=== PATIENT | female | born 1990 | race Caucasian/White ===

== ENCOUNTER 2018-01-03 09:25 | Inpatient (IN) | payer MEDICAID ==
[~2018-01-03] VITALS: Ht 147.3 cm; Wt 67.8 kg
[~2018-01-03 09:25] MED LIST: ALBU18HF2 INH; GABA600T2 PO; GLU850T PO; INSU100V36 SQ; LANTUS SQ; LEVO88TA39 PO; MELO7.5T12 PO; MIRENA VG; MONT10TA21 PO; OMEP20TA5 PO; PROC5TAB56 PO; TRAZ-146 PO
[2018-01-03] MEDS ORDERED: ondansetron/PF 4mg/2ml inj IV ONE (10:00)
[2018-01-03] MEDS ORDERED: normal saline 1000ML IV soln IVB ONE ×2 (10:00→10:35)
[2018-01-03 10:06] LABS: BASOPHILS % (AUTO) 0.1 % (0-1); EOSINOPHILS % (AUTO) 0 % (0-6); HEMATOCRIT 47.9 % (35.0-45.0); HEMOGLOBIN 16.3 g/dl (12.0-16.0); LYMPHOCYTES # (AUTO) 1.1 X10'3 (1.1-4.8); LYMPHOCYTES % (AUTO) 4.2 % (21-51); MEAN CORPUSCULAR HEMOGLOBIN 28.4 PG (27.0-31.0); MEAN CORPUSCULAR HGB CONC 33.9 % (33.0-36.5); MEAN CORPUSCULAR VOLUME 83.7 FL (78-98); MEAN PLATELET VOLUME 9.7 FL (7.4-10.4); MONOCYTES # (AUTO) 0.4 X10'3 (0-0.9); MONOCYTES % (AUTO) 1.5 % (2-12); NEUTROPHILS # (AUTO) 25.6 X10'3 (1.8-7.7); NEUTROPHILS % (AUTO) 94.2 % (42-75); PLATELET COUNT 337 X10'3 (140-440); RED BLOOD COUNT 5.73 X10'6 (4.20-5.60); RED CELL DISTRIBUTION WIDTH 14.5 % (11.5-14.5)
[2018-01-03 10:10] LABS: WHITE BLOOD COUNT 27.2 X10'3 (4.5-11.0)
[2018-01-03 10:22] LABS: ALANINE AMINOTRANSFERASE 27 U/L (12-78); ALBUMIN 4.4 G/DL (3.4-5.0); ALKALINE PHOSPHATASE 145 IU/L (46-116); ANION GAP 34 (8-16); ASPARTATE AMINO TRANSFERASE 12 U/L (10-37); BILIRUBIN,TOTAL 0.7 MG/DL (0.1-1.0); BLOOD UREA NITROGEN 43 MG/DL (7-18); BUN/CREATININE RATIO 24.3 (6.6-38.0); CALCIUM 9.2 MG/DL (8.5-10.1); CHLORIDE 80 MMOL/L (99-107); CREATININE 1.77 MG/DL (0.40-0.90); LIPASE 92 U/L (73-393); MAGNESIUM 1.9 MG/DL (1.5-2.4); PHOSPHORUS 8.3 MG/DL (2.3-4.5); SODIUM 123 MMOL/L (135-145); eGFR 34 ML/MIN
[2018-01-03 10:25] LABS: GLUCOSE 726 MG/DL (70-104); TOTAL CARBON DIOXIDE 8.8 MMOL/L (24-32)
[2018-01-03] MEDS ORDERED: SERT50TA PO (10:31)
[2018-01-03] MEDS ORDERED: DULO-31 PO ×2 (10:31→14:27)
[2018-01-03] MEDS ORDERED: INSU100C10 SQ ×2 (10:31)
[2018-01-03] MEDS ORDERED: LANTUS SQ (10:31)
[2018-01-03] MEDS ORDERED: proCHLORperazine 10 MG/2 ml inj IV ONE (10:35)
[2018-01-03] MEDS: morphine 4 MG/ML inj SYRINge IV PRN ×2 (10:43→13:42)
[2018-01-03 10:51] LABS: ABG BASE EXCESS -23.6 mmol/L (-2.0-3.0); ABG OXYGEN SATURATION 97.9 % (95-98); ABG PH (T) 7.102 (7.350-7.450); ABG PO2 (T) 128.7 mmHg (83-108); ALLEN'S TEST Positive; FMetHb 0.2 % (0.3-1.12); FO2Hb 96.7 % (94-100); PATIENT TEMPERATURE 36.1; TOTAL HEMOGLOBIN 14.7 G/dl (12.0-16.0)
[2018-01-03 10:58] LABS: PLATELET ESTIMATE NORMAL; TOTAL CELLS COUNTED 100
[2018-01-03 10:59] LABS: URINE HCG NEGATIVE (NEG)
[2018-01-03 11:03] LABS: CLARITY,URINE CLOUDY (Clear); COLOR,URINE STRAW (Yellow); GLUCOSE, URINE >=1000 mg/dl (Neg); KETONES,URINE >=80 mg/dl (Neg); LEUKOCYTE ESTERASE ,URINE TRACE (Neg); NITRITES, URINE NEGATIVE (Neg); OCCULT BLOOD,URINE TRACE-INTACT (Neg); PH,URINE 5.5 (4.8-8.0); PROTEIN,URINE TRACE mg/dl (Neg); UROBILINOGEN,URINE 0.2 E.U/dL (0.2-1.0)
[2018-01-03 11:10] LABS: UA COLLECTION TYPE OTHER
[2018-01-03 11:11] LABS: SQUAMOUS EPITHELIAL CELL,UR MANY /LPF (FEW)
[2018-01-03 11:13] LABS: BACTERIA,URINE 3+ /HPF (Neg); MUCUS STRANDS NONE SEEN /LPF (Neg); RBC,URINE 0-2 /HPF (0-2); WBC,URINE 0-4 /HPF (0-4); YEAST MANY /HPF (NEGATIVE)
[2018-01-03] MEDS ORDERED: insulin regular, human 10 units/0.1 ml syringe SQ PRN ×2 (11:20→13:00)
[2018-01-03] MEDS: insulin regular, DKA only 100 UNIT in normal saline 100ml IV soln 99 ML IV SCH ×2 (12:10)
[2018-01-03] MEDS ORDERED: levoFLOXACIN-Levaquin 750MG/D5 150 ML IV STA (12:41)
[2018-01-03] MEDS ORDERED: dextrose 50%-water 50ml dispensing syringe IV PRN ×3 (12:55→13:10)
[2018-01-03] MEDS ORDERED: non-formulary drug (Albuterol Sulfate (Ventolin Hfa) 1 PUFFS) INH PRN (12:55)
[2018-01-03] MEDS ORDERED: insulin regular, human 100 UNIT in normal saline 100ml IV soln 99 ML IV SCH ×2 (12:55)
[2018-01-03] MEDS ORDERED: sodium bicarbonate (8.4%) inj. 100 MEQ in sodium chloride 0.45% 500ml 500 ML IV PRN (12:57)
[2018-01-03] MEDS ORDERED: insulin regular, DKA only 100 UNIT in normal saline 100ml IV soln 99 ML IV SCH ×2 (12:57)
[2018-01-03] MEDS ORDERED: sodium bicarbonate (8.4%) inj. 50 MEQ in sodium chloride 0.45% 500ml 250 ML IV PRN (12:57)
[2018-01-03] MEDS ORDERED: normal saline 1000ml 1,000 ML IV SCH (12:59)
[2018-01-03] MEDS ORDERED: HYDROcodone/acetaminophen 5mg/325mg tablet PO PRN (13:00)
[2018-01-03] MEDS ORDERED: HYDROmorphone 1 mg/ml syringe IV PRN ×2 (13:00)
[2018-01-03] MEDS ORDERED: HYDROcodone/acetaminophen 10/325mg tab PO PRN (13:00)
[2018-01-03] MEDS ORDERED: potassium Cl 20 mEq SR tablet PO PRN ×2 (13:00)
[2018-01-03] MEDS ORDERED: potassium Cl 40MEQ/NS 500ml 500 ML IV PRN ×2 (13:00)
[2018-01-03] MEDS ORDERED: acetaminophen 325mg tablet PO PRN ×2 (13:00)
[2018-01-03] MEDS ORDERED: diphenhydrAMINE 25mg capsule PO PRN (13:00)
[2018-01-03] MEDS ORDERED: albuterol 2.5 MG/3 ML nebule NEB PRN (13:00)
[2018-01-03] MEDS ORDERED: magnesium hydroxide 30ml (MOM) UD suspension PO PRN (13:00)
[2018-01-03] MEDS ORDERED: sodium phosphate inj. 30 MMOL in dextrose 5%-water 250 ML IV PRN (13:00)
[2018-01-03] MEDS ORDERED: acetaminophen 650mg rectal suppository RC PRN (13:00)
[2018-01-03] MEDS ORDERED: sodium phosphate inj. 15 MMOL in dextrose 5%-water 150 ML IV PRN (13:00)
[2018-01-03] MEDS ORDERED: morphine 4 MG/ML inj SYRINge IV PRN (13:00)
[2018-01-03] MEDS ORDERED: bisacodyl 10mg suppository rectal RC PRN (13:00)
[2018-01-03] MEDS ORDERED: metoclopramide 5 mg/ml inj IV PRN (13:00)
[2018-01-03] MEDS ORDERED: diphenhydrAMINE 50 mg/ml inj IV PRN (13:00)
[2018-01-03] MEDS ORDERED: glucagon, human recombinant 1mg kit SUBCUT PRN (13:10)
[2018-01-03] MEDS ORDERED: dextrose ORAL solution 15 GM/59 ML bottle PO PRN ×2 (13:10)
[2018-01-03] MEDS ORDERED: MESSAGE TO PHARMACY PO ONE (13:10)
[2018-01-03] MEDS: normal saline 1000ml 1,000 ML IV SCH ×4 (13:48→17:11)
[2018-01-03 14:11] LABS: HEMOGLOBIN A1C 10.9 % (4.5-6.2)
[2018-01-03 14:23] LABS: ALBUMIN 3.7 G/DL (3.4-5.0); ANION GAP 24 (8-16); BLOOD UREA NITROGEN 30 MG/DL (7-18); BUN/CREATININE RATIO 22.7 (6.6-38.0); CALCIUM 7.6 MG/DL (8.5-10.1); CHLORIDE 98 MMOL/L (99-107); CREATININE 1.32 MG/DL (0.40-0.90); GLUCOSE 395 MG/DL (70-104); POTASSIUM 4.3 MMOL/L (3.5-5.1); SODIUM 131 MMOL/L (135-145); eGFR 48 ML/MIN
[2018-01-03 14:24] LABS: TOTAL CARBON DIOXIDE 9.2 MMOL/L (24-32)
[2018-01-03] MEDS ORDERED: SERT100T PO (14:26)
[2018-01-03] MEDS: insulin Lispro (HumaLOG) vial - multi-dose SQ SCH (14:30)
[2018-01-03 15:00] VITALS: BP 126/70
[2018-01-03 15:00] LABS: URINE AMPHETAMINE SCREEN NEGATIVE (Neg); URINE BARBITUATE SCREEN NEGATIVE (Neg); URINE BENZODIAZEPINES SCREEN NEGATIVE (Neg); URINE CANNABINOID SCREEN NEGATIVE (Neg); URINE COCAINE SCREEN NEGATIVE (Neg); URINE METHADONE SCREEN NEGATIVE (Neg); URINE OPIATE SCREEN POSITIVE (Neg); URINE PHENCYCLIDINE SCREEN NEGATIVE (Neg)
[2018-01-03 17:43] LABS: ALBUMIN 3.5 G/DL (3.4-5.0); ANION GAP 18 (8-16); BLOOD UREA NITROGEN 22 MG/DL (7-18); BUN/CREATININE RATIO 19.3 (6.6-38.0); CHLORIDE 103 MMOL/L (99-107); CREATININE 1.14 MG/DL (0.40-0.90); GLUCOSE 202 MG/DL (70-104); PHOSPHORUS 2.3 MG/DL (2.3-4.5); SODIUM 135 MMOL/L (135-145); eGFR 57 ML/MIN
[2018-01-03 17:45] LABS: TOTAL CARBON DIOXIDE 13.8 MMOL/L (24-32)
[2018-01-03 19:00] VITALS: BP 109/49
[2018-01-03] MEDS: potassium CL 20mEq in D5-1/2NS 1,000 ML IV PRN (19:14)
[2018-01-03] MEDS: docusate sod 100mg capsule PO SCH (19:28)
[2018-01-03] MEDS: duloxetine 30mg CAPSULE.DR PO SCH (19:29)
[2018-01-03] MEDS: heparin, porcine 5000 units/ml vial SQ SCH (20:19)
[2018-01-03] MEDS ORDERED: temazepam 15mg capsule PO PRN (21:00)
[2018-01-03 21:43] LABS: ALBUMIN 3.3 G/DL (3.4-5.0); ANION GAP 17 (8-16); BLOOD UREA NITROGEN 16 MG/DL (7-18); BUN/CREATININE RATIO 15.4 (6.6-38.0); CALCIUM 8.4 MG/DL (8.5-10.1); CHLORIDE 105 MMOL/L (99-107); CREATININE 1.04 MG/DL (0.40-0.90); GLUCOSE 182 MG/DL (70-104); PHOSPHORUS 1.7 MG/DL (2.3-4.5); POTASSIUM 3.8 MMOL/L (3.5-5.1); SODIUM 137 MMOL/L (135-145); TOTAL CARBON DIOXIDE 15.4 MMOL/L (24-32); eGFR 64 ML/MIN
[2018-01-03] MEDS ORDERED: sodium phosphate in D5W IVPB 250 ML IV ONE (22:52)
[2018-01-03 23:00] VITALS: BP 116/59
[2018-01-04 02:07] LABS: BASOPHILS % (AUTO) 0.2 % (0-1); EOSINOPHILS % (AUTO) 0 % (0-6); HEMATOCRIT 38.7 % (35.0-45.0); HEMOGLOBIN 12.9 g/dl (12.0-16.0); LYMPHOCYTES % (AUTO) 6.6 % (21-51); MEAN CORPUSCULAR HEMOGLOBIN 27.7 PG (27.0-31.0); MEAN CORPUSCULAR HGB CONC 33.3 % (33.0-36.5); MEAN CORPUSCULAR VOLUME 83.2 FL (78-98); MEAN PLATELET VOLUME 8.8 FL (7.4-10.4); MONOCYTES # (AUTO) 0.8 X10'3 (0-0.9); MONOCYTES % (AUTO) 5.4 % (2-12); NEUTROPHILS # (AUTO) 13.3 X10'3 (1.8-7.7); NEUTROPHILS % (AUTO) 87.8 % (42-75); PLATELET COUNT 238 X10'3 (140-440); RED BLOOD COUNT 4.66 X10'6 (4.20-5.60); RED CELL DISTRIBUTION WIDTH 13.4 % (11.5-14.5); WHITE BLOOD COUNT 15.1 X10'3 (4.5-11.0)
[2018-01-04 02:09] LABS: ALANINE AMINOTRANSFERASE 19 U/L (12-78); ALBUMIN 3.1 G/DL (3.4-5.0); ALBUMIN/GLOBULIN RATIO 0.9 (1.1-1.5); ALKALINE PHOSPHATASE 90 IU/L (46-116); ANION GAP 14 (8-16); ASPARTATE AMINO TRANSFERASE 12 U/L (10-37); BILIRUBIN,TOTAL 0.4 MG/DL (0.1-1.0); BLOOD UREA NITROGEN 12 MG/DL (7-18); BUN/CREATININE RATIO 12.1 (6.6-38.0); CALCIUM 8.4 MG/DL (8.5-10.1); CHLORIDE 105 MMOL/L (99-107); CREATININE 0.99 MG/DL (0.40-0.90); GLUCOSE 165 MG/DL (70-104); POTASSIUM 3.5 MMOL/L (3.5-5.1); SODIUM 137 MMOL/L (135-145); TOTAL CARBON DIOXIDE 18.5 MMOL/L (24-32); TOTAL PROTEIN 6.7 G/DL (6.4-8.2); eGFR 67 ML/MIN
[2018-01-04] MEDS: potassium CL 20mEq in D5-1/2NS 1,000 ML IV PRN (02:26)
[2018-01-04 03:00] VITALS: BP 101/53
[2018-01-04] MEDS: insulin regular, DKA only 100 UNIT in normal saline 100ml IV soln 99 ML IV SCH ×2 (05:33)
[2018-01-04 06:59] LABS: ALBUMIN 3.1 G/DL (3.4-5.0); ANION GAP 12 (8-16); BLOOD UREA NITROGEN 10 MG/DL (7-18); BUN/CREATININE RATIO 10.3 (6.6-38.0); CALCIUM 8.7 MG/DL (8.5-10.1); CHLORIDE 106 MMOL/L (99-107); CREATININE 0.97 MG/DL (0.40-0.90); GLUCOSE 182 MG/DL (70-104); PHOSPHORUS 1.6 MG/DL (2.3-4.5); POTASSIUM 3.4 MMOL/L (3.5-5.1); SODIUM 137 MMOL/L (135-145); TOTAL CARBON DIOXIDE 18.8 MMOL/L (24-32); eGFR 69 ML/MIN
[2018-01-04 07:00] VITALS: BP 150/76
[2018-01-04] MEDS: pantoprazole 40mg Tablet.DR PO SCH ×2 (07:30→17:40)
[2018-01-04] MEDS: levoFLOXACIN-Levaquin 500mg/D5 100 ML IV SCH (07:36)
[2018-01-04] MEDS: nicotine 21mg patch - 24 hr TD SCH (07:36)
[2018-01-04] MEDS: heparin, porcine 5000 units/ml vial SQ SCH ×2 (07:37→20:37)
[2018-01-04] MEDS: duloxetine 30mg CAPSULE.DR PO SCH ×2 (08:00→20:36)
[2018-01-04] MEDS: levoTHYROXINE 88mcg tablet PO SCH (08:00)
[2018-01-04] MEDS ORDERED: non-formulary drug (Omeprazole 2 TAB) PO SCH (08:00)
[2018-01-04] MEDS: sertraline 50mg tablet PO SCH (08:00)
[2018-01-04] MEDS ORDERED: K and/or MAG REPLACEMENT MC SCH (08:00)
[2018-01-04] MEDS: docusate sod 100mg capsule PO SCH ×2 (08:00→20:36)
[2018-01-04] MEDS: mag hydrox/Alum hydrox/simeth 30ml oral suspension PO PRN ×2 (09:44→16:14)
[2018-01-04 11:00] VITALS: BP 135/80
[2018-01-04] MEDS: insulin Lispro (HumaLOG) vial - multi-dose SQ SCH ×3 (12:40→21:34)
[2018-01-04] MEDS: morphine 4 MG/ML inj SYRINge IV PRN ×2 (14:17→18:56)
[2018-01-04 15:00] VITALS: BP 123/63
[2018-01-04 15:42] LABS: ANION GAP 13 (8-16); BLOOD UREA NITROGEN 6 MG/DL (7-18); BUN/CREATININE RATIO 6.5 (6.6-38.0); CALCIUM 8.8 MG/DL (8.5-10.1); CHLORIDE 103 MMOL/L (99-107); CREATININE 0.93 MG/DL (0.40-0.90); GLUCOSE 269 MG/DL (70-104); POTASSIUM 3.7 MMOL/L (3.5-5.1); SODIUM 135 MMOL/L (135-145); TOTAL CARBON DIOXIDE 19.3 MMOL/L (24-32); eGFR 72 ML/MIN
[2018-01-04 19:00] VITALS: BP 144/87
[2018-01-04] MEDS: Neutra Phos packet PO PRN (20:38)
[2018-01-04] MEDS ORDERED: insulin glargine (Lantus) pen - multi-dose SQ SCH (21:00)
[2018-01-04 23:00] VITALS: BP 144/87
[2018-01-05] MEDS: mag hydrox/Alum hydrox/simeth 30ml oral suspension PO PRN (01:14)
[2018-01-05] MEDS: metoclopramide 5 mg/ml inj IV PRN ×2 (01:29→08:40)
[2018-01-05 02:29] LABS: BASOPHILS % (AUTO) 0.5 % (0-1); EOSINOPHILS % (AUTO) 0.5 % (0-6); HEMATOCRIT 38.5 % (35.0-45.0); HEMOGLOBIN 13.4 g/dl (12.0-16.0); LYMPHOCYTES # (AUTO) 1.6 X10'3 (1.1-4.8); LYMPHOCYTES % (AUTO) 16.1 % (21-51); MEAN CORPUSCULAR HEMOGLOBIN 28.9 PG (27.0-31.0); MEAN CORPUSCULAR HGB CONC 34.9 % (33.0-36.5); MEAN CORPUSCULAR VOLUME 82.8 FL (78-98); MEAN PLATELET VOLUME 8.3 FL (7.4-10.4); MONOCYTES # (AUTO) 0.5 X10'3 (0-0.9); MONOCYTES % (AUTO) 4.7 % (2-12); NEUTROPHILS # (AUTO) 7.7 X10'3 (1.8-7.7); NEUTROPHILS % (AUTO) 78.2 % (42-75); PLATELET COUNT 175 X10'3 (140-440); RED BLOOD COUNT 4.65 X10'6 (4.20-5.60); RED CELL DISTRIBUTION WIDTH 14.3 % (11.5-14.5); WHITE BLOOD COUNT 9.9 X10'3 (4.5-11.0)
[2018-01-05 02:44] LABS: ALANINE AMINOTRANSFERASE 22 U/L (12-78); ALBUMIN 3.1 G/DL (3.4-5.0); ALBUMIN/GLOBULIN RATIO 0.8 (1.1-1.5); ALKALINE PHOSPHATASE 92 IU/L (46-116); ASPARTATE AMINO TRANSFERASE 17 U/L (10-37); BILIRUBIN,TOTAL 0.4 MG/DL (0.1-1.0); CALCIUM 8.9 MG/DL (8.5-10.1); CHLORIDE 101 MMOL/L (99-107); CREATININE 0.79 MG/DL (0.40-0.90); GLUCOSE 266 MG/DL (70-104); TOTAL CARBON DIOXIDE 19.1 MMOL/L (24-32); TOTAL PROTEIN 6.9 G/DL (6.4-8.2); eGFR 87 ML/MIN
[2018-01-05 02:53] LABS: ANION GAP 14 (8-16); SODIUM 134 MMOL/L (135-145)
[2018-01-05 02:54] LABS: POTASSIUM 3.7 MMOL/L (3.5-5.1)
[2018-01-05 02:55] LABS: BLOOD UREA NITROGEN 8 MG/DL (7-18); BUN/CREATININE RATIO 10.1 (6.6-38.0)
[2018-01-05 03:00] VITALS: BP 126/76
[2018-01-05] MEDS: insulin regular, DKA only 100 UNIT in normal saline 100ml IV soln 99 ML IV SCH ×2 (03:45)
[2018-01-05 04:04] LABS: PHOSPHORUS 2.1 MG/DL (2.3-4.5)
[2018-01-05 06:00] VITALS: BP 128/78
[2018-01-05] MEDS: pantoprazole 40mg Tablet.DR PO SCH (07:30)
[2018-01-05] MEDS: insulin Lispro (HumaLOG) vial - multi-dose SQ SCH ×2 (08:37→12:56)
[2018-01-05] MEDS: Neutra Phos packet PO PRN (08:39)
[2018-01-05] MEDS: nicotine 21mg patch - 24 hr TD SCH (08:39)
[2018-01-05] MEDS: levoFLOXACIN-Levaquin 500mg/D5 100 ML IV SCH (08:41)
[2018-01-05] MEDS: heparin, porcine 5000 units/ml vial SQ SCH (08:41)
[2018-01-05] MEDS: duloxetine 30mg CAPSULE.DR PO SCH (08:42)
[2018-01-05] MEDS: sertraline 50mg tablet PO SCH (08:42)
[2018-01-05] MEDS: docusate sod 100mg capsule PO SCH (08:42)
[2018-01-05] MEDS: levoTHYROXINE 88mcg tablet PO SCH (08:42)
[2018-01-05 11:00] VITALS: BP 139/88
[2018-01-05] MEDS ORDERED: LEVO500T89 PO (11:08)
[2018-01-05] MEDS ORDERED: lactobacillus rhamnosus 10,000 MMU CELLS/CAPSULE PO SCH (20:00)
== END 2018-01-05 13:50 | disposition home or self-care (01) | DRG 469 ==
LOC: ER 09:25 → ED HOLD 12:59 → PCU 3S 15:04
PROVIDERS: ADMIT Family Medicine; ATTEND Family Medicine
DX: N17.9 Acute kidney failure, unspecified (principal); E10.10 Type 1 diabetes mellitus with ketoacidosis without coma; K31.84 Gastroparesis; E10.43 Type 1 diabetes mellitus with diabetic autonomic (poly)neuropathy; E87.1 Hypo-osmolality and hyponatremia; I10 Essential (primary) hypertension; N39.0 Urinary tract infection, site not specified; E03.9 Hypothyroidism, unspecified; E86.1 Hypovolemia; F32.9 Major depressive disorder, single episode, unspecified; F41.9 Anxiety disorder, unspecified; J45.909 Unspecified asthma, uncomplicated; Z79.899 Other long term (current) drug therapy; Z88.2 Allergy status to sulfonamides; Z88.1 Allergy status to other antibiotic agents; Z88.8 Allergy status to other drugs, medicaments and biological substances; Z86.14 Personal history of Methicillin resistant Staphylococcus aureus infection; Z56.0 Unemployment, unspecified; Z87.891 Personal history of nicotine dependence
CPT/HCPCS: 36415; 36600; 71045; 74176; 80048; 80053; 80305; 81001; 81025; 82803; 82948; 83036; 83605; 83690; 83735; 84100; 84145; 84443; 84484; 85018; 85025; 87040; 87070; 93005; 94640; 94760; 96361; 96365; 96372; 96375; 99291; A4315; J0780; J1170; J1644; J1815; J1956; J2270; J2765; J3480; J7030

== ENCOUNTER 2018-08-27 02:59 | Emergency (ER) | payer MEDICAID ==
[~2018-08-27] VITALS: Ht 162.6 cm; Wt 63.6 kg
[~2018-08-27 02:59] MED LIST changes: +DULO-31 PO; -GABA600T2 PO; +INSU100C10 SQ; -INSU100V36 SQ; -MELO7.5T12 PO; -MONT10TA21 PO; -PROC5TAB56 PO; +SERT50TA PO; -TRAZ-146 PO
[2018-08-27] MEDS ORDERED: normal saline 1000ML IV soln IVB ONE (03:30)
[2018-08-27 04:10] LABS: BASOPHILS # (AUTO) 0.1 X10'3 (0-0.2); EOSINOPHILS % (AUTO) 0.2 % (0-6); HEMATOCRIT 38.1 % (35.0-45.0); HEMOGLOBIN 13.2 g/dl (12.0-16.0); LYMPHOCYTES # (AUTO) 1.2 X10'3 (1.1-4.8); LYMPHOCYTES % (AUTO) 12.8 % (21-51); MEAN CORPUSCULAR HEMOGLOBIN 27.8 PG (27.0-31.0); MEAN CORPUSCULAR HGB CONC 34.7 g/dL (33.0-36.5); MEAN CORPUSCULAR VOLUME 80.2 FL (78-98); MEAN PLATELET VOLUME 8.9 FL (7.4-10.4); MONOCYTES # (AUTO) 0.5 X10'3 (0-0.9); MONOCYTES % (AUTO) 5.8 % (2-12); NEUTROPHILS # (AUTO) 7.6 X10'3 (1.8-7.7); NEUTROPHILS % (AUTO) 80.2 % (42-75); PLATELET COUNT 184 X10'3 (140-440); RED BLOOD COUNT 4.75 X10'6 (4.20-5.60); RED CELL DISTRIBUTION WIDTH 14.3 % (11.5-14.5); WHITE BLOOD COUNT 9.5 X10'3 (4.5-11.0)
[2018-08-27 04:25] LABS: ALANINE AMINOTRANSFERASE 25 U/L (12-78); ALBUMIN 3.6 G/DL (3.4-5.0); ALKALINE PHOSPHATASE 70 IU/L (46-116); ANION GAP 13 (8-16); ASPARTATE AMINO TRANSFERASE 11 U/L (10-37); BILIRUBIN,TOTAL 0.2 MG/DL (0.1-1.0); BLOOD UREA NITROGEN 15 MG/DL (7-18); BUN/CREATININE RATIO 22.1 (6.6-38.0); CALCIUM 9.6 MG/DL (8.5-10.1); CHLORIDE 101 MMOL/L (99-107); CREATININE 0.68 MG/DL (0.40-0.90); GLUCOSE 402 MG/DL (70-104); SODIUM 137 MMOL/L (135-145); TOTAL CARBON DIOXIDE 23.1 MMOL/L (24-32); TOTAL PROTEIN 7.1 G/DL (6.4-8.2); eGFR > 90 ML/MIN
[2018-08-27] MEDS ORDERED: insulin regular, human 10 units/0.1 ml syringe IV ONE (04:40)
[2018-08-27 04:44] LABS: URINE HCG NEGATIVE (NEG)
[2018-08-27] MEDS ORDERED: diphenhydrAMINE 50 mg/ml inj IV ONE (04:45)
[2018-08-27] MEDS ORDERED: ondansetron/PF 4mg/2ml inj IV ONE (04:45)
[2018-08-27 04:48] LABS: CLARITY,URINE CLEAR (Clear); COLOR,URINE YELLOW (Yellow); GLUCOSE, URINE >=1000 mg/dl (Neg); KETONES,URINE >=80 mg/dl (Neg); LEUKOCYTE ESTERASE ,URINE NEGATIVE (Neg); NITRITES, URINE NEGATIVE (Neg); OCCULT BLOOD,URINE NEGATIVE (Neg); PH,URINE 6.5 (4.8-8.0); PROTEIN,URINE NEGATIVE (Neg); UA COLLECTION TYPE VOIDED; UROBILINOGEN,URINE 0.2 E.U/dL (0.2-1.0)
[2018-08-27 04:53] VITALS: BP 146/65
[2018-08-27 05:01] LABS: BACTERIA,URINE 2+ /HPF (Neg); RBC,URINE NONE SEEN /HPF (0-2); SQUAMOUS EPITHELIAL CELL,UR FEW /LPF (FEW); WBC,URINE NONE SEEN /HPF (0-4)
[2018-08-27] MEDS ORDERED: normal saline 1000ml 1,000 ML IV ONE (05:40)
[2018-08-27] MEDS ORDERED: DIPH-423 PO (15:41)
[2018-08-27] MEDS ORDERED: DIPH25CA83 PO (23:45)
== END 2018-08-27 05:59 | disposition home or self-care (01) ==
LOC: ER 03:00
DX: E11.65 Type 2 diabetes mellitus with hyperglycemia (principal); R51 Headache; J45.909 Unspecified asthma, uncomplicated; Z56.0 Unemployment, unspecified; Z88.2 Allergy status to sulfonamides; Z88.8 Allergy status to other drugs, medicaments and biological substances; Z88.6 Allergy status to analgesic agent; Z88.1 Allergy status to other antibiotic agents; Z91.040 Latex allergy status; Z79.4 Long term (current) use of insulin
CPT/HCPCS: 36415; 71045; 80053; 81001; 81025; 82948; 85025; 96361; 96374; 96375; 99284; J1200; J1815; J7030

== ENCOUNTER 2018-08-27 14:28 | Emergency (ER) | payer MEDICAID ==
[~2018-08-27] VITALS: Ht 144.8 cm; Wt 68.9 kg
[2018-08-27] MEDS ORDERED: diphenhydrAMINE 50 mg/ml inj IM ONE (15:10)
[2018-08-27] MEDS ORDERED: DIPH-423 PO (15:41)
[2018-08-27 15:48] VITALS: BP 135/80
[2018-08-27] MEDS ORDERED: DIPH25CA83 PO (23:45)
== END 2018-08-27 15:50 | disposition home or self-care (01) ==
LOC: ER 14:28
DX: E10.65 Type 1 diabetes mellitus with hyperglycemia (principal); F41.9 Anxiety disorder, unspecified; J45.909 Unspecified asthma, uncomplicated; F17.200 Nicotine dependence, unspecified, uncomplicated; Z56.0 Unemployment, unspecified; Z88.2 Allergy status to sulfonamides; Z88.8 Allergy status to other drugs, medicaments and biological substances; Z88.6 Allergy status to analgesic agent; Z88.1 Allergy status to other antibiotic agents; Z91.040 Latex allergy status
CPT/HCPCS: 82948; 96372; 99283; J1200

== ENCOUNTER 2018-08-27 22:00 | Emergency (ER) | payer MEDICAID ==
[~2018-08-27] VITALS: Ht 167.6 cm; Wt 68.2 kg
[~2018-08-27 22:00] MED LIST changes: +DIPH-423 PO
[2018-08-27 22:09] VITALS: BP 161/89
[2018-08-27] MEDS ORDERED: DIPH25CA83 PO (23:45)
[2018-08-27] MEDS ORDERED: diphenhydrAMINE 50 mg/ml inj IM ONE (23:45)
== END 2018-08-27 23:55 | disposition home or self-care (01) ==
LOC: ER 22:01
DX: G47.00 Insomnia, unspecified (principal); J45.909 Unspecified asthma, uncomplicated; E11.9 Type 2 diabetes mellitus without complications; Z86.14 Personal history of Methicillin resistant Staphylococcus aureus infection; Z98.890 Other specified postprocedural states; Z88.2 Allergy status to sulfonamides; Z88.1 Allergy status to other antibiotic agents; Z88.5 Allergy status to narcotic agent; Z91.040 Latex allergy status; Z88.8 Allergy status to other drugs, medicaments and biological substances; Z79.84 Long term (current) use of oral hypoglycemic drugs; Z79.4 Long term (current) use of insulin; Z79.899 Other long term (current) drug therapy; Z56.0 Unemployment, unspecified
CPT/HCPCS: 96372; 99283; J1200

== ENCOUNTER 2018-09-05 13:41 | Emergency (ER) | payer MEDICAID ==
[~2018-09-05] VITALS: Ht 144.8 cm; Wt 66.8 kg
[~2018-09-05 13:41] MED LIST changes: +DIPH25CA83 PO
[2018-09-05 14:02] VITALS: BP 110/82
--- NOTE | 2018-09-05 14:08 | NUR ---
BG 176
[2018-09-06] MEDS ORDERED: LANTUS SQ (16:02)
[2018-09-06] MEDS ORDERED: INSU100V11 SQ ×2 (16:02→16:03)
== END 2018-09-05 14:27 | disposition home or self-care (01) ==
LOC: ER 13:42
DX: R06.00 Dyspnea, unspecified (principal); T43.595A Adverse effect of other antipsychotics and neuroleptics, initial encounter; J45.909 Unspecified asthma, uncomplicated; E11.9 Type 2 diabetes mellitus without complications; Z86.14 Personal history of Methicillin resistant Staphylococcus aureus infection; F31.9 Bipolar disorder, unspecified; Z98.890 Other specified postprocedural states; Z88.2 Allergy status to sulfonamides; Z88.1 Allergy status to other antibiotic agents; Z88.5 Allergy status to narcotic agent; Z88.8 Allergy status to other drugs, medicaments and biological substances; Z91.040 Latex allergy status; Z79.4 Long term (current) use of insulin; Z79.84 Long term (current) use of oral hypoglycemic drugs; Z79.899 Other long term (current) drug therapy; Y92.89 Other specified places as the place of occurrence of the external cause
CPT/HCPCS: 82948; 99282

== ENCOUNTER 2018-09-06 15:12 | Emergency (ER) | payer MEDICAID ==
[~2018-09-06] VITALS: Ht 144.8 cm; Wt 67.7 kg
--- NOTE | 2018-09-06 15:54 | NUR ---
Pt arrived from main ER. Report from Janeen. Pt reports bad nightmares which she remembers very vividly where she stabs herself in her heart. She stated she is very depressed and has had trouble with side effects of medications in the past. She reports that she in engaged to be and nothing has triggered this episode. She has never attempted suicide in the past but states this time she wants to slit her throat. No previous psychiatric hospitalizations. Pts belongings were secured and she was oriented to unit and plan of care.
[2018-09-06 15:55] LABS: URINE HCG NEGATIVE (NEG)
[2018-09-06 15:56] LABS: CLARITY,URINE CLEAR (Clear); COLOR,URINE YELLOW (Yellow); GLUCOSE, URINE NEGATIVE (Neg); KETONES,URINE 40 mg/dl (Neg); LEUKOCYTE ESTERASE ,URINE NEGATIVE (Neg); NITRITES, URINE NEGATIVE (Neg); OCCULT BLOOD,URINE NEGATIVE (Neg); PH,URINE 6.5 (4.8-8.0); PROTEIN,URINE NEGATIVE (Neg); UROBILINOGEN,URINE 0.2 E.U/dL (0.2-1.0)
[2018-09-06 15:57] LABS: UA COLLECTION TYPE CLN CATCH MIDSTREAM
[2018-09-06] MEDS ORDERED: LANTUS SQ (16:02)
[2018-09-06] MEDS ORDERED: INSU100V11 SQ ×2 (16:02→16:03)
[2018-09-06 16:07] LABS: URINE AMPHETAMINE SCREEN NEGATIVE (Neg); URINE BARBITUATE SCREEN NEGATIVE (Neg); URINE BENZODIAZEPINES SCREEN NEGATIVE (Neg); URINE CANNABINOID SCREEN NEGATIVE (Neg); URINE COCAINE SCREEN NEGATIVE (Neg); URINE METHADONE SCREEN NEGATIVE (Neg); URINE OPIATE SCREEN NEGATIVE (Neg); URINE PHENCYCLIDINE SCREEN NEGATIVE (Neg)
[2018-09-06 16:27] LABS: BASOPHILS # (AUTO) 0.1 X10'3 (0-0.2); BASOPHILS % (AUTO) 0.8 % (0-1); EOSINOPHILS % (AUTO) 0.2 % (0-6); HEMATOCRIT 40.4 % (35.0-45.0); HEMOGLOBIN 13.8 g/dl (12.0-16.0); LYMPHOCYTES # (AUTO) 2.3 X10'3 (1.1-4.8); LYMPHOCYTES % (AUTO) 25.9 % (21-51); MEAN CORPUSCULAR HEMOGLOBIN 27.7 PG (27.0-31.0); MEAN CORPUSCULAR HGB CONC 34.1 g/dL (33.0-36.5); MEAN PLATELET VOLUME 8.9 FL (7.4-10.4); MONOCYTES # (AUTO) 0.4 X10'3 (0-0.9); MONOCYTES % (AUTO) 4.7 % (2-12); NEUTROPHILS # (AUTO) 6.1 X10'3 (1.8-7.7); NEUTROPHILS % (AUTO) 68.4 % (42-75); PLATELET COUNT 245 X10'3 (140-440); RED BLOOD COUNT 4.99 X10'6 (4.20-5.60); RED CELL DISTRIBUTION WIDTH 14.4 % (11.5-14.5); WHITE BLOOD COUNT 8.9 X10'3 (4.5-11.0)
--- NOTE | 2018-09-06 16:34 | NUR ---
Telepsych called. Pt placed in queue.
[2018-09-06 16:40] LABS: ALANINE AMINOTRANSFERASE 20 U/L (12-78); ALBUMIN 3.9 G/DL (3.4-5.0); ALBUMIN/GLOBULIN RATIO 1.1 (1.1-1.5); ALKALINE PHOSPHATASE 72 IU/L (46-116); ANION GAP 11 (8-16); ASPARTATE AMINO TRANSFERASE 12 U/L (10-37); BILIRUBIN,TOTAL 0.4 MG/DL (0.1-1.0); BLOOD UREA NITROGEN 10 MG/DL (7-18); BUN/CREATININE RATIO 18.9 (6.6-38.0); CALCIUM 9.6 MG/DL (8.5-10.1); CHLORIDE 104 MMOL/L (99-107); CREATININE 0.53 MG/DL (0.40-0.90); GLUCOSE 171 MG/DL (70-104); POTASSIUM 3.9 MMOL/L (3.5-5.1); SODIUM 138 MMOL/L (135-145); TOTAL CARBON DIOXIDE 23.2 MMOL/L (24-32); TOTAL PROTEIN 7.4 G/DL (6.4-8.2); eGFR > 90 ML/MIN
[2018-09-06] MEDS ORDERED: albuterol 2.5 MG/3 ML nebule NEB PRN (17:05)
[2018-09-06] MEDS ORDERED: insulin Lispro (HumaLOG) vial - multi-dose SQ SCH (17:20)
[2018-09-06] MEDS ORDERED: dextrose ORAL solution 15 GM/59 ML bottle PO PRN ×2 (17:20)
[2018-09-06] MEDS ORDERED: MESSAGE TO PHARMACY PO ONE (17:20)
[2018-09-06] MEDS ORDERED: dextrose 50%-water 50ml dispensing syringe IV PRN ×2 (17:20)
[2018-09-06] MEDS ORDERED: glucagon, human recombinant 1mg kit SUBCUT PRN (17:20)
[2018-09-06 18:14] LABS: HEMOGLOBIN A1C 8.9 % (4.5-6.2)
--- NOTE | 2018-09-06 18:32 | NUR ---
Aniya menchaca in [facility] - 09/06/18 at 2120 by MIREYA PRE BRIDGETTNER ACCUCHECK = 141, NO NEED TO START CORRECTIONAL INSULIN AT THIS TIME.
--- NOTE | 2018-09-06 18:32 | NUR ---
REPORT GIVEN TO TELE PSYCH MD, PT SPEAKING WITH MD NOW.
--- NOTE | 2018-09-06 19:07 | NUR ---
TELE PSYCH REPORT REVIEWED WITH DOM LIN, MEDS ORDERED RECOMMENDED. NICOTINE PATCH ALSO ORDERED PER PT'S REQUEST.
[2018-09-06] MEDS ORDERED: nicotine 14mg patch - 24hr TD ONE (19:10)
[2018-09-06] MEDS ORDERED: hydrOXYzine 25 MG tablet PO PRN (19:10)
[2018-09-06] MEDS: LORazepam 1 MG tablet PO PRN (19:36)
[2018-09-06] MEDS: metFORMIN 500mg tablet PO SCH (19:39)
--- NOTE | 2018-09-06 19:39 | NUR ---
PT COMPLAINING OF NAUSEA, STATES SHE HAS VOMITED BUT DID NOT TELL STAFF. RATHER QUESTIONED ABOUT SEVERAL TRIPS UP AND DOWN TO BATHROOM BEFORE SHE ADMITTED THAT SHE HAS BEEN VOMITING. MEDICATED FOR AGGITATION WITH ATIVAN 2MG PO.
--- NOTE | 2018-09-06 20:40 | NUR ---
REPORT GIVEN TO LUCIANO AT [facility]
[2018-09-06 20:55] LABS: ETHANOL < 0.010 GM/DL (0.0-0.010)
[2018-09-06] MEDS ORDERED: insulin glargine (Lantus) pen - multi-dose SQ SCH (21:00)
--- NOTE | 2018-09-06 21:20 | NUR ---
PT'S ACCUCHECK = 220, PT ACTUALLY TYPE 1 DIABETIC, NO CORRECTIONAL INSULIN NEEDED, 12UNITS OF LANTUS GIVEN PER PROTOCOL.
--- NOTE | 2018-09-06 21:27 | NUR ---
REPORT GIVEN TO MELISSA AT [facility] [place].
--- NOTE | 2018-09-06 22:42 | NUR ---
PT HAS BEEN ACCEPTED AT [facility], ACCEPTING IS DOM CONRAD, TO TRANSFER AT 0900 IN AM.
[2018-09-07 05:45] VITALS: BP 100/57
[2018-09-07] MEDS: LORazepam 1 MG tablet PO PRN (06:50)
[2018-09-07] MEDS ORDERED: levoTHYROXINE 88mcg tablet PO SCH (07:00)
[2018-09-07] MEDS ORDERED: pantoprazole 40mg Tablet.DR PO SCH (07:30)
[2018-09-07] MEDS: metFORMIN 500mg tablet PO SCH (08:29)
== END 2018-09-07 10:35 ==
LOC: ER 15:12
DX: R45.851 Suicidal ideations (principal); F31.9 Bipolar disorder, unspecified; J45.909 Unspecified asthma, uncomplicated; E11.9 Type 2 diabetes mellitus without complications; Z86.14 Personal history of Methicillin resistant Staphylococcus aureus infection; Z98.890 Other specified postprocedural states; Z56.0 Unemployment, unspecified; Z88.2 Allergy status to sulfonamides; Z88.8 Allergy status to other drugs, medicaments and biological substances; Z88.5 Allergy status to narcotic agent; Z88.1 Allergy status to other antibiotic agents; Z91.040 Latex allergy status; Z79.4 Long term (current) use of insulin; Z79.84 Long term (current) use of oral hypoglycemic drugs; Z79.899 Other long term (current) drug therapy
CPT/HCPCS: 36415; 80053; 80305; 80320; 81003; 81025; 82948; 83036; 84443; 85025; 96372; 99285; J1815

== ENCOUNTER 2021-03-07 11:47 | Inpatient (IN) | payer MEDICAID ==
[~2021-03-07] VITALS: Ht 152.4 cm; Wt 70.0 kg
[~2021-03-07 11:47] MED LIST changes: -DIPH-423 PO; -DIPH25CA83 PO; -DULO-31 PO; -INSU100C10 SQ; +INSU100V11 SQ; -SERT50TA PO
[2021-03-07] MEDS ORDERED: normal saline 1000ML IV soln IVB ONE ×2 (12:00→13:20)
[2021-03-07] MEDS ORDERED: insulin regular, human U-100 3ml vial - multi-dose IV ONE (12:00)
[2021-03-07] MEDS ORDERED: insulin regular, human 10 units/0.1 ml syringe IV ONE (12:15)
[2021-03-07] MEDS: Insulin Reg/NS 100units/100mL 100 ML IV PRN ×2 (12:29→14:14)
[2021-03-07 12:31] LABS: ABG BASE EXCESS -32.1 mmol/L (-2.0-2.0); ABG HCO3 2.1 mmol/L (22.0-26.0); ABG OXYGEN SATURATION 97.7 % (94-97); ABG PO2 (T) 144.8 mmHg (75.0-100.0); ALLEN'S TEST Modified; FCOHb 0.3 % (0.0-3.9); FMetHb 0.2 % (0.0-1.5); FO2Hb 97.2 % (94-97); TOTAL HEMOGLOBIN 11.8 G/dl (12.0-16.0)
[2021-03-07] MEDS ORDERED: sodium bicarbonate (8.4%) 1 mEq/ml syringe IV ONE ×2 (12:45)
[2021-03-07 12:55] LABS: BASOPHILS # (AUTO) 0.3 X10'3 (0-0.2); BASOPHILS % (AUTO) 0.7 % (0-1); EOSINOPHILS # (AUTO) 0.2 X10'3 (0-0.9); EOSINOPHILS % (AUTO) 0.5 % (0-6); HEMATOCRIT 32.4 % (35.0-45.0); HEMOGLOBIN 10.9 g/dl (12.0-16.0); LYMPHOCYTES # (AUTO) 5.8 X10'3 (1.1-4.8); MEAN CORPUSCULAR HEMOGLOBIN 29.2 PG (27.0-31.0); MEAN CORPUSCULAR HGB CONC 33.5 g/dL (33.0-36.5); MEAN CORPUSCULAR VOLUME 87.1 FL (78-98); MEAN PLATELET VOLUME 9.1 FL (7.4-10.4); MONOCYTES # (AUTO) 4.4 X10'3 (0-0.9); MONOCYTES % (AUTO) 9.3 % (2-12); NEUTROPHILS # (AUTO) 37.3 X10'3 (1.8-7.7); NEUTROPHILS % (AUTO) 77.5 % (42-75); PLATELET COUNT 440 X10'3 (140-440); RED BLOOD COUNT 3.72 X10'6 (4.20-5.60); RED CELL DISTRIBUTION WIDTH 13.1 % (11.5-14.5)
[2021-03-07 13:00] LABS: ALANINE AMINOTRANSFERASE 32 U/L (12-78); ALBUMIN/GLOBULIN RATIO 0.9 (1.1-1.5); ALKALINE PHOSPHATASE 149 IU/L (46-116); ASPARTATE AMINO TRANSFERASE 21 U/L (10-37); BILIRUBIN,TOTAL 0.6 MG/DL (0.1-1.0); BLOOD UREA NITROGEN 69 MG/DL (7-18); BUN/CREATININE RATIO 30.4 (6.6-38.0); CALCIUM 8.4 MG/DL (8.5-10.1); CHLORIDE 81 MMOL/L (99-107); CREATININE 2.27 MG/DL (0.40-0.90); MAGNESIUM 3.1 MG/DL (1.5-2.4); TOTAL PROTEIN 6.2 G/DL (6.4-8.2); eGFR 25 ML/MIN
[2021-03-07 13:09] LABS: CLARITY,URINE SLIGHTLY CLOUDY (Clear); COLOR,URINE STRAW (Yellow); GLUCOSE, URINE >=1000 mg/dl (Neg); KETONES,URINE 40 mg/dl (Neg); LEUKOCYTE ESTERASE ,URINE NEGATIVE (Neg); NITRITES, URINE NEGATIVE (Neg); OCCULT BLOOD,URINE LARGE (Neg); PROTEIN,URINE 30 mg/dl (Neg); UA COLLECTION TYPE OTHER; UROBILINOGEN,URINE 0.2 E.U/dL (0.2-1.0)
[2021-03-07 13:12] LABS: URINE HCG NEGATIVE (NEG)
[2021-03-07 13:15] LABS: BACTERIA,URINE 4+ /HPF (Neg); HYALINE CASTS 0-3 /LPF (NEGATIVE); MUCUS STRANDS NONE SEEN /LPF (Neg); SQUAMOUS EPITHELIAL CELL,UR FEW /LPF (FEW); WBC,URINE 0-4 /HPF (0-4)
[2021-03-07] MEDS: sodium bicarbonate (8.4%) inj. 150 MEQ in dextrose 5%-water 1,000 ML IV SCH (13:15)
[2021-03-07 13:26] LABS: TOTAL CELLS COUNTED 100
[2021-03-07 13:28] LABS: PLATELET ESTIMATE NORMAL; SMUDGE CELLS FEW
[2021-03-07 13:29] LABS: POIKILOCYTOSIS FEW; POLYCHROMASIA FEW; TOXIC VACUOLATION FEW
[2021-03-07 13:30] LABS: ANION GAP 29 (8-16)
[2021-03-07 13:35] LABS: GLUCOSE 1246 MG/DL (70-104); POTASSIUM 7.3 MMOL/L (3.5-5.1); SODIUM 115 MMOL/L (135-145)
[2021-03-07 13:36] LABS: TOTAL CARBON DIOXIDE < 5 MMOL/L (24-32)
[2021-03-07] MEDS ORDERED: CALCIUM GLUC 1gm/50ml NACL,iso 50 ML IV ONE (13:45)
[2021-03-07] MEDS ORDERED: insulin regular, human 10 units/0.1 ml syringe IV PRN ×2 (14:00→18:00)
[2021-03-07] MEDS ORDERED: insulin regular, human U-100 3ml vial - multi-dose IV PRN ×2 (14:00→19:33)
[2021-03-07] MEDS ORDERED: albuterol 2.5 MG/3 ML nebule CONTNEB PRN (14:20)
[2021-03-07] MEDS ORDERED: piperacillin/tazo 3.375gm/50ml 50 ML IV ONE (14:20)
[2021-03-07] MEDS ORDERED: vancomycin/NS 1 GM ADD-VANTAGE 250 ML IV ONE (15:50)
[2021-03-07 16:44] LABS: ANION GAP 30 (8-16); BLOOD UREA NITROGEN 75 MG/DL (7-18); BUN/CREATININE RATIO 35.2 (6.6-38.0); CALCIUM 8.6 MG/DL (8.5-10.1); CHLORIDE 88 MMOL/L (99-107); CREATININE 2.13 MG/DL (0.40-0.90); POTASSIUM 4.6 MMOL/L (3.5-5.1); SODIUM 124 MMOL/L (135-145); eGFR 27 ML/MIN
[2021-03-07 17:02] LABS: GLUCOSE 1041 MG/DL (70-104)
[2021-03-07 17:03] LABS: TOTAL CARBON DIOXIDE 6.2 MMOL/L (24-32)
[2021-03-07 17:09] LABS: ABG BASE EXCESS -25.8 mmol/L (-2.0-2.0); ABG HCO3 4.4 mmol/L (22.0-26.0); ABG PCO2 (T) 19.5 mmHg (32.0-45.0); FCOHb 0.3 % (0.0-3.9); FO2Hb 96.7 % (94-97); TOTAL HEMOGLOBIN 11.4 G/dl (12.0-16.0)
[2021-03-07] MEDS ORDERED: potassium Cl 40MEQ/1/2NS 520ml 520 ML IV PRN (18:00)
[2021-03-07] MEDS ORDERED: sodium bicarbonate (8.4%) inj. 100 MEQ in dextrose 5% water 500ml 500 ML IV PRN (18:00)
[2021-03-07] MEDS ORDERED: sodium phosphate inj. 15 MMOL in dextrose 5%-water 250 ML IV PRN (18:00)
[2021-03-07] MEDS ORDERED: LIDOcaine 2% 10ml TOPICAL JELLY (Urojet) TP ONE (18:00)
[2021-03-07] MEDS ORDERED: magnesium hydroxide 30ml (MOM) UD suspension PO PRN (18:00)
[2021-03-07] MEDS: Insulin Reg/NS 100units/100mL 100 ML IV SCH (18:00)
[2021-03-07] MEDS: normal saline 1000ml 1,000 ML IV SCH ×4 (18:00→22:00)
[2021-03-07] MEDS ORDERED: Neutra Phos packet PO PRN (18:00)
[2021-03-07] MEDS ORDERED: sodium phosphate inj. 30 MMOL in dextrose 5%-water 250 ML IV PRN (18:00)
[2021-03-07] MEDS ORDERED: potassium Cl 20 mEq SR tablet PO PRN ×2 (18:00)
[2021-03-07] MEDS ORDERED: sodium bicarbonate (8.4%) inj. 50 MEQ in dextrose 5% water 500ml 250 ML IV PRN (18:00)
[2021-03-07 18:24] LABS: ALBUMIN 2.9 G/DL (3.4-5.0); ANION GAP 31 (8-16); BLOOD UREA NITROGEN 71 MG/DL (7-18); BUN/CREATININE RATIO 31.4 (6.6-38.0); CALCIUM 8.6 MG/DL (8.5-10.1); CHLORIDE 87 MMOL/L (99-107); CREATININE 2.26 MG/DL (0.40-0.90); PHOSPHORUS 4.5 MG/DL (2.3-4.5); POTASSIUM 4.2 MMOL/L (3.5-5.1); SODIUM 124 MMOL/L (135-145); eGFR 25 ML/MIN
[2021-03-07] MEDS ORDERED: levoFLOXACIN-Levaquin 500mg/D5 100 ML IV ONE (18:35)
[2021-03-07 18:45] LABS: GLUCOSE 1070 MG/DL (70-104); TOTAL CARBON DIOXIDE 6.4 MMOL/L (24-32)
[2021-03-07 19:00] VITALS: BP 76/34
[2021-03-07] MEDS: K and/or MAG REPLACEMENT MC SCH (20:00)
[2021-03-07] MEDS ORDERED: CLON0.1T2 PO (20:05)
[2021-03-07] MEDS ORDERED: NAPR-996 PO (20:05)
[2021-03-07] MEDS ORDERED: LEVO88TA7 PO (20:05)
[2021-03-07] MEDS ORDERED: OXCA600T9 PO (20:05)
[2021-03-07] MEDS ORDERED: TOPI50TA24 PO (20:05)
[2021-03-07] MEDS ORDERED: DULO60CA65 PO (20:05)
[2021-03-07] MEDS ORDERED: OXCA300T16 PO (20:05)
[2021-03-07] MEDS ORDERED: INSU100V43 (20:05)
[2021-03-07] MEDS ORDERED: CHOL100046 PO (20:05)
[2021-03-07] MEDS ORDERED: ATOR40TA72 PO (20:05)
[2021-03-07] MEDS ORDERED: RISP0.5T65 PO (20:05)
[2021-03-07 20:42] LABS: ALBUMIN 2.6 G/DL (3.4-5.0); ANION GAP 28 (8-16); BLOOD UREA NITROGEN 75 MG/DL (7-18); BUN/CREATININE RATIO 33.6 (6.6-38.0); CHLORIDE 92 MMOL/L (99-107); CREATININE 2.23 MG/DL (0.40-0.90); SODIUM 127 MMOL/L (135-145); eGFR 26 ML/MIN
[2021-03-07 21:00] VITALS: BP 70/28
[2021-03-07 21:00] LABS: POTASSIUM 4.2 MMOL/L (3.5-5.1)
[2021-03-07 21:04] LABS: GLUCOSE 985 MG/DL (70-104)
[2021-03-07 21:05] LABS: TOTAL CARBON DIOXIDE 7.4 MMOL/L (24-32)
[2021-03-07] MEDS ORDERED: PHENYLephrine 10mg/ml inj. 100 MG in normal saline 250ml IV soln 240 ML IV SCH (21:25)
[2021-03-07 22:02] LABS: ALBUMIN 2.4 G/DL (3.4-5.0); ANION GAP 23 (8-16); BLOOD UREA NITROGEN 69 MG/DL (7-18); BUN/CREATININE RATIO 33.3 (6.6-38.0); CALCIUM 7.2 MG/DL (8.5-10.1); CHLORIDE 98 MMOL/L (99-107); CREATININE 2.07 MG/DL (0.40-0.90); POTASSIUM 3.5 MMOL/L (3.5-5.1); SODIUM 131 MMOL/L (135-145); eGFR 28 ML/MIN
[2021-03-07 22:20] LABS: GLUCOSE 839 MG/DL (70-104)
[2021-03-07 22:21] LABS: TOTAL CARBON DIOXIDE 9.7 MMOL/L (24-32)
[2021-03-07] MEDS: PHENYLephrine 10mg/ml inj. 50 MG in normal saline 250ml IV soln 245 ML IV SCH (22:31)
[2021-03-07] MEDS: potassium Cl 20mEq in NS 1,000 ML IV SCH (22:40)
[2021-03-07 23:00] VITALS: BP 101/45
[2021-03-08] VITALS (20 sets, daily range): BP systolic 89–134; BP diastolic 42–75
[2021-03-08] MEDS: sodium bicarbonate (8.4%) inj. 150 MEQ in dextrose 5%-water 1,000 ML IV SCH ×2 (00:44→11:45)
[2021-03-08 00:55] LABS: ALBUMIN 2.7 G/DL (3.4-5.0); ANION GAP 21 (8-16); BLOOD UREA NITROGEN 67 MG/DL (7-18); BUN/CREATININE RATIO 32.5 (6.6-38.0); CALCIUM 7.5 MG/DL (8.5-10.1); CHLORIDE 101 MMOL/L (99-107); CREATININE 2.06 MG/DL (0.40-0.90); POTASSIUM 3.7 MMOL/L (3.5-5.1); SODIUM 134 MMOL/L (135-145); eGFR 28 ML/MIN
[2021-03-08 00:58] LABS: GLUCOSE 679 MG/DL (70-104); TOTAL CARBON DIOXIDE 12.4 MMOL/L (24-32)
[2021-03-08] MEDS: normal saline 1000ml 1,000 ML IV SCH ×2 (02:00→06:00)
[2021-03-08] MEDS: Insulin Reg/NS 100units/100mL 100 ML IV SCH ×4 (02:35→22:33)
[2021-03-08] MEDS: potassium Cl 20mEq in NS 1,000 ML IV SCH ×6 (03:37→22:35)
[2021-03-08] MEDS: metoclopramide 5 mg/ml inj IV PRN ×2 (05:30→15:44)
[2021-03-08] MEDS: potassium CL 20mEq in D5-1/2NS 1,000 ML IV PRN ×2 (06:47→09:06)
[2021-03-08 07:04] LABS: BASOPHILS % (AUTO) 0.1 % (0-1); EOSINOPHILS % (AUTO) 0 % (0-6); HEMATOCRIT 28.4 % (35.0-45.0); HEMOGLOBIN 9.9 g/dl (12.0-16.0); LYMPHOCYTES # (AUTO) 0.9 X10'3 (1.1-4.8); LYMPHOCYTES % (AUTO) 4.3 % (21-51); MEAN CORPUSCULAR HEMOGLOBIN 28.8 PG (27.0-31.0); MEAN CORPUSCULAR VOLUME 82.2 FL (78-98); MEAN PLATELET VOLUME 8.1 FL (7.4-10.4); MONOCYTES # (AUTO) 1.5 X10'3 (0-0.9); MONOCYTES % (AUTO) 7.3 % (2-12); NEUTROPHILS # (AUTO) 18.5 X10'3 (1.8-7.7); NEUTROPHILS % (AUTO) 88.3 % (42-75); PLATELET COUNT 217 X10'3 (140-440); RED BLOOD COUNT 3.45 X10'6 (4.20-5.60); RED CELL DISTRIBUTION WIDTH 13.7 % (11.5-14.5); WHITE BLOOD COUNT 20.9 X10'3 (4.5-11.0)
[2021-03-08] MEDS: enoxaparin 40mg/0.4ml syringe SUBCUT SCH (07:38)
[2021-03-08] MEDS: pantoprazole 40 MG vial IV SCH (07:38)
[2021-03-08 07:44] LABS: ALANINE AMINOTRANSFERASE 43 U/L (12-78); ALBUMIN 2.8 G/DL (3.4-5.0); ALBUMIN/GLOBULIN RATIO 1.1 (1.1-1.5); ALKALINE PHOSPHATASE 90 IU/L (46-116); ANION GAP 16 (8-16); ASPARTATE AMINO TRANSFERASE 64 U/L (10-37); BILIRUBIN,TOTAL 0.3 MG/DL (0.1-1.0); BLOOD UREA NITROGEN 48 MG/DL (7-18); BUN/CREATININE RATIO 34.3 (6.6-38.0); CALCIUM 8.1 MG/DL (8.5-10.1); CHLORIDE 112 MMOL/L (99-107); GLUCOSE 301 MG/DL (70-104); MAGNESIUM 1.7 MG/DL (1.5-2.4); POTASSIUM 3.2 MMOL/L (3.5-5.1); SODIUM 146 MMOL/L (135-145); TOTAL CARBON DIOXIDE 18.2 MMOL/L (24-32); TOTAL PROTEIN 5.4 G/DL (6.4-8.2); eGFR 44 ML/MIN
[2021-03-08 07:47] LABS: PHOSPHORUS 0.8 MG/DL (2.3-4.5)
[2021-03-08] MEDS: K and/or MAG REPLACEMENT MC SCH ×2 (08:00→20:00)
[2021-03-08] MEDS ORDERED: levoFLOXACIN-Levaquin 500mg/D5 100 ML IV SCH (08:00)
--- NOTE | 2021-03-08 09:31 | NUR ---
Initial: Pt presented to ED with AMS and admit for DKA and sepsis. Per H&P pt has an insulin pump however per EMS they state when they found patient the pump was not on. No A1c at this time though noted BG 1246 mg/dL on admit. TC to RN with recommendation for an A1c lab this admit. Pt documented as A/O x 2 and lethargic, currently NPO. Pt would benefit from DM education once more stable. Will continue to follow closely. Recommendations: 1) Advance to CHO controlled diet as medically indicated 2) Monitor need for ONS/additional protein with diet advancement 3) Bowel care per rx 4) Scaled weight this admit; weekly scaled weights thereafter 5) DM education once stable, admit with DKA with BG 1246 mg/dL on admit, A1c pending Addendum: 03/08/21 at [address] Amended: Links added.
[2021-03-08 10:59] LABS: ALANINE AMINOTRANSFERASE 47 U/L (12-78); ALBUMIN 2.6 G/DL (3.4-5.0); ALBUMIN/GLOBULIN RATIO 0.9 (1.1-1.5); ALKALINE PHOSPHATASE 88 IU/L (46-116); ANION GAP 13 (8-16); BILIRUBIN,TOTAL 0.3 MG/DL (0.1-1.0); BLOOD UREA NITROGEN 38 MG/DL (7-18); BUN/CREATININE RATIO 32.5 (6.6-38.0); CALCIUM 7.9 MG/DL (8.5-10.1); CHLORIDE 114 MMOL/L (99-107); CREATININE 1.17 MG/DL (0.40-0.90); GLUCOSE 160 MG/DL (70-104); SODIUM 147 MMOL/L (135-145); TOTAL CARBON DIOXIDE 20.3 MMOL/L (24-32); TOTAL PROTEIN 5.4 G/DL (6.4-8.2); eGFR 54 ML/MIN
[2021-03-08 11:14] LABS: MAGNESIUM 1.7 MG/DL (1.5-2.4); POTASSIUM 3.5 MMOL/L (3.5-5.1)
[2021-03-08 11:17] LABS: ASPARTATE AMINO TRANSFERASE 65 U/L (10-37)
[2021-03-08 11:25] LABS: PHOSPHORUS 0.9 MG/DL (2.3-4.5)
[2021-03-08 12:22] LABS: HEMOGLOBIN A1C 10.1 % (4.5-6.2)
[2021-03-08] MEDS ORDERED: POTASSIUM CL IV ONE ×4 (14:00)
[2021-03-08] MEDS ORDERED: SODIUM BICARBONATE IV ONE ×4 (14:00)
[2021-03-08] MEDS ORDERED: [UNRECOGNIZED DRUG - OTHER] IV ONE ×4 (14:00)
[2021-03-08 14:55] LABS: ABG BASE EXCESS -2.6 mmol/L (-2.0-2.0); ABG OXYGEN SATURATION 96.7 % (94-97); ABG PCO2 (T) 23.8 mmHg (32.0-45.0); ABG PO2 (T) 86.7 mmHg (75.0-100.0); FCOHb 0.2 % (0.0-3.9); FMetHb 0.5 % (0.0-1.5); TOTAL HEMOGLOBIN 10.8 G/dl (12.0-16.0)
[2021-03-08 15:05] LABS: ALANINE AMINOTRANSFERASE 46 U/L (12-78); ALBUMIN 2.6 G/DL (3.4-5.0); ALKALINE PHOSPHATASE 86 IU/L (46-116); ANION GAP 15 (8-16); ASPARTATE AMINO TRANSFERASE 67 U/L (10-37); BILIRUBIN,TOTAL 0.3 MG/DL (0.1-1.0); BLOOD UREA NITROGEN 34 MG/DL (7-18); BUN/CREATININE RATIO 29.8 (6.6-38.0); CALCIUM 7.9 MG/DL (8.5-10.1); CHLORIDE 114 MMOL/L (99-107); CREATININE 1.14 MG/DL (0.40-0.90); GLUCOSE 199 MG/DL (70-104); MAGNESIUM 1.7 MG/DL (1.5-2.4); PHOSPHORUS 2.1 MG/DL (2.3-4.5); POTASSIUM 3.1 MMOL/L (3.5-5.1); SODIUM 150 MMOL/L (135-145); TOTAL CARBON DIOXIDE 20.9 MMOL/L (24-32); TOTAL PROTEIN 5.3 G/DL (6.4-8.2); eGFR 56 ML/MIN
[2021-03-08] MEDS: potassium Cl 40MEQ/1/2NS 520ml 520 ML IV PRN (15:44)
[2021-03-08 17:49] LABS: ALANINE AMINOTRANSFERASE 45 U/L (12-78); ALBUMIN 2.5 G/DL (3.4-5.0); ALBUMIN/GLOBULIN RATIO 0.9 (1.1-1.5); ALKALINE PHOSPHATASE 85 IU/L (46-116); ANION GAP 12 (8-16); ASPARTATE AMINO TRANSFERASE 63 U/L (10-37); BILIRUBIN,TOTAL 0.3 MG/DL (0.1-1.0); BLOOD UREA NITROGEN 25 MG/DL (7-18); BUN/CREATININE RATIO 24.8 (6.6-38.0); CALCIUM 7.2 MG/DL (8.5-10.1); CHLORIDE 114 MMOL/L (99-107); CREATININE 1.01 MG/DL (0.40-0.90); GLUCOSE 189 MG/DL (70-104); MAGNESIUM 1.5 MG/DL (1.5-2.4); PHOSPHORUS 2.2 MG/DL (2.3-4.5); POTASSIUM 3.4 MMOL/L (3.5-5.1); SODIUM 147 MMOL/L (135-145); TOTAL CARBON DIOXIDE 21.1 MMOL/L (24-32); TOTAL PROTEIN 5.3 G/DL (6.4-8.2); eGFR 64 ML/MIN
[2021-03-08] MEDS ORDERED: LORazepam 2 mg/ml vial IV ONE (18:50)
[2021-03-08] MEDS ORDERED: LORazepam 2 mg/ml vial IV PRN (18:55)
[2021-03-08] MEDS ORDERED: oxcarbazepine 150mg tablet PO SCH (20:00)
[2021-03-08] MEDS: risperiDONE 0.5mg tablet PO SCH (21:00)
[2021-03-08 21:03] LABS: ALANINE AMINOTRANSFERASE 44 U/L (12-78); ALBUMIN 2.5 G/DL (3.4-5.0); ALKALINE PHOSPHATASE 82 IU/L (46-116); ANION GAP 13 (8-16); ASPARTATE AMINO TRANSFERASE 58 U/L (10-37); BILIRUBIN,TOTAL 0.2 MG/DL (0.1-1.0); BLOOD UREA NITROGEN 21 MG/DL (7-18); BUN/CREATININE RATIO 20.6 (6.6-38.0); CALCIUM 7.6 MG/DL (8.5-10.1); CHLORIDE 115 MMOL/L (99-107); CREATININE 1.02 MG/DL (0.40-0.90); GLUCOSE 158 MG/DL (70-104); MAGNESIUM 1.5 MG/DL (1.5-2.4); PHOSPHORUS 1.9 MG/DL (2.3-4.5); POTASSIUM 3.5 MMOL/L (3.5-5.1); SODIUM 150 MMOL/L (135-145); TOTAL CARBON DIOXIDE 21.8 MMOL/L (24-32); TOTAL PROTEIN 5.1 G/DL (6.4-8.2); eGFR 64 ML/MIN
[2021-03-08] MEDS: PHENYLephrine 10mg/ml inj. 50 MG in normal saline 250ml IV soln 245 ML IV SCH (22:38)
[2021-03-09] VITALS (23 sets, daily range): BP systolic 104–140; BP diastolic 54–96
[2021-03-09] MEDS ORDERED: [UNRECOGNIZED DRUG - OTHER] IV ONE ×4 (01:30)
[2021-03-09] MEDS ORDERED: SODIUM BICARBONATE IV ONE ×4 (01:30)
[2021-03-09] MEDS ORDERED: POTASSIUM CL IV ONE ×4 (01:30)
[2021-03-09] MEDS: potassium Cl 20mEq in NS 1,000 ML IV SCH ×6 (02:35→22:35)
[2021-03-09] MEDS: Insulin Reg/NS 100units/100mL 100 ML IV SCH ×2 (04:19→13:00)
[2021-03-09 04:38] LABS: BASOPHILS # (AUTO) 0.1 X10'3 (0-0.2); BASOPHILS % (AUTO) 0.3 % (0-1); EOSINOPHILS % (AUTO) 0.1 % (0-6); HEMATOCRIT 27.9 % (35.0-45.0); HEMOGLOBIN 9.8 g/dl (12.0-16.0); LYMPHOCYTES # (AUTO) 2.3 X10'3 (1.1-4.8); LYMPHOCYTES % (AUTO) 12.3 % (21-51); MEAN CORPUSCULAR HEMOGLOBIN 28.9 PG (27.0-31.0); MEAN CORPUSCULAR HGB CONC 35.3 g/dL (33.0-36.5); MEAN CORPUSCULAR VOLUME 81.8 FL (78-98); MEAN PLATELET VOLUME 7.9 FL (7.4-10.4); MONOCYTES # (AUTO) 1.1 X10'3 (0-0.9); MONOCYTES % (AUTO) 5.8 % (2-12); NEUTROPHILS # (AUTO) 15.6 X10'3 (1.8-7.7); NEUTROPHILS % (AUTO) 81.5 % (42-75); PLATELET COUNT 182 X10'3 (140-440); RED BLOOD COUNT 3.41 X10'6 (4.20-5.60); RED CELL DISTRIBUTION WIDTH 13.9 % (11.5-14.5); WHITE BLOOD COUNT 19.1 X10'3 (4.5-11.0)
[2021-03-09 04:52] LABS: ALANINE AMINOTRANSFERASE 42 U/L (12-78); ALBUMIN 2.5 G/DL (3.4-5.0); ALBUMIN/GLOBULIN RATIO 0.9 (1.1-1.5); ALKALINE PHOSPHATASE 84 IU/L (46-116); ANION GAP 12 (8-16); ASPARTATE AMINO TRANSFERASE 46 U/L (10-37); BILIRUBIN,TOTAL 0.2 MG/DL (0.1-1.0); BLOOD UREA NITROGEN 15 MG/DL (7-18); BUN/CREATININE RATIO 16.9 (6.6-38.0); CALCIUM 7.2 MG/DL (8.5-10.1); CHLORIDE 111 MMOL/L (99-107); CREATININE 0.89 MG/DL (0.40-0.90); GLUCOSE 215 MG/DL (70-104); MAGNESIUM 1.9 MG/DL (1.5-2.4); POTASSIUM 3.1 MMOL/L (3.5-5.1); SODIUM 146 MMOL/L (135-145); TOTAL CARBON DIOXIDE 22.9 MMOL/L (24-32); TOTAL PROTEIN 5.3 G/DL (6.4-8.2); eGFR 74 ML/MIN
[2021-03-09] MEDS ORDERED: oxcarbazepine 150mg tablet PO SCH (08:00)
[2021-03-09] MEDS ORDERED: oxcarbazepine 150mg tablet PO ONE (08:00)
[2021-03-09] MEDS: cloNIDine 0.1 mg tablet PO SCH (08:00)
--- NOTE | 2021-03-09 08:54 | NUR ---
DM consult: A1C 10.1 though pt remains confused and A&O x 1. DM education not appropriate at this time, Pt would benefit from DM education once more stable. Addendum: 03/09/21 at [address] Amended: Links added.
[2021-03-09] MEDS: enoxaparin 40mg/0.4ml syringe SUBCUT SCH (09:29)
[2021-03-09] MEDS: pantoprazole 40 MG vial IV SCH (09:29)
[2021-03-09] MEDS: oxcarbazepine 150mg tablet PO SCH ×2 (09:30→21:17)
[2021-03-09] MEDS: topiramate 25mg tablet PO SCH (09:32)
[2021-03-09] MEDS: duloxetine 30mg CAPSULE.DR PO SCH (09:45)
[2021-03-09] MEDS: potassium Cl 40MEQ/1/2NS 520ml 520 ML IV PRN (16:14)
[2021-03-09] MEDS ORDERED: dextrose ORAL solution 15 GM/59 ML bottle PO PRN ×2 (19:05)
[2021-03-09] MEDS ORDERED: glucagon, human recombinant 1mg kit SUBCUT PRN (19:05)
[2021-03-09] MEDS ORDERED: dextrose 50%-water 50ml dispensing syringe IV PRN ×2 (19:05)
[2021-03-09] MEDS ORDERED: MESSAGE TO PHARMACY PO ONE (19:05)
[2021-03-09] MEDS: K and/or MAG REPLACEMENT MC SCH (20:00)
[2021-03-09] MEDS: risperiDONE 0.5mg tablet PO SCH (21:17)
[2021-03-09] MEDS: insulin Lispro (HumaLOG) vial - multi-dose SQ SCH (21:29)
[2021-03-09] MEDS: insulin glargine (Lantus) pen - multi-dose SQ SCH (21:31)
[2021-03-09] MEDS: PHENYLephrine 10mg/ml inj. 50 MG in normal saline 250ml IV soln 245 ML IV SCH (23:31)
[2021-03-10] VITALS (24 sets, daily range): BP systolic 98–147; BP diastolic 51–89
[2021-03-10] MEDS ORDERED: diphenhydrAMINE 50 mg/ml inj IV ONE (01:30)
[2021-03-10] MEDS: potassium Cl 20mEq in NS 1,000 ML IV SCH (02:35)
--- NOTE | 2021-03-10 03:02 | NUR ---
Patient in bed resting at this time no signs of distress noted , will continue to monitor and report changes
[2021-03-10] MEDS ORDERED: insulin Lispro (HumaLOG) vial - multi-dose SQ ONE (04:10)
[2021-03-10 06:03] LABS: BASOPHILS % (AUTO) 0.4 % (0-1); EOSINOPHILS % (AUTO) 0.2 % (0-6); HEMATOCRIT 34.6 % (35.0-45.0); HEMOGLOBIN 11.6 g/dl (12.0-16.0); LYMPHOCYTES # (AUTO) 2.1 X10'3 (1.1-4.8); LYMPHOCYTES % (AUTO) 19.3 % (21-51); MEAN CORPUSCULAR HEMOGLOBIN 28.9 PG (27.0-31.0); MEAN CORPUSCULAR HGB CONC 33.5 g/dL (33.0-36.5); MEAN CORPUSCULAR VOLUME 86.3 FL (78-98); MEAN PLATELET VOLUME 8.1 FL (7.4-10.4); MONOCYTES # (AUTO) 0.5 X10'3 (0-0.9); MONOCYTES % (AUTO) 4.8 % (2-12); NEUTROPHILS # (AUTO) 8.4 X10'3 (1.8-7.7); NEUTROPHILS % (AUTO) 75.3 % (42-75); PLATELET COUNT 149 X10'3 (140-440); RED BLOOD COUNT 4.01 X10'6 (4.20-5.60); RED CELL DISTRIBUTION WIDTH 14.5 % (11.5-14.5); WHITE BLOOD COUNT 11.1 X10'3 (4.5-11.0)
--- NOTE | 2021-03-10 06:18 | NUR ---
Problems reprioritized. Patient report given, questions answered & plan of care reviewed with PAULETTE OAKES .
[2021-03-10 06:24] LABS: ALANINE AMINOTRANSFERASE 50 U/L (12-78); ALBUMIN 3.3 G/DL (3.4-5.0); ALBUMIN/GLOBULIN RATIO 0.9 (1.1-1.5); ALKALINE PHOSPHATASE 105 IU/L (46-116); ANION GAP 20 (8-16); ASPARTATE AMINO TRANSFERASE 24 U/L (10-37); BILIRUBIN,TOTAL 0.6 MG/DL (0.1-1.0); BLOOD UREA NITROGEN 18 MG/DL (7-18); BUN/CREATININE RATIO 19.4 (6.6-38.0); CALCIUM 8.4 MG/DL (8.5-10.1); CHLORIDE 105 MMOL/L (99-107); CREATININE 0.93 MG/DL (0.40-0.90); GLUCOSE 428 MG/DL (70-104); MAGNESIUM 2.4 MG/DL (1.5-2.4); POTASSIUM 5.5 MMOL/L (3.5-5.1); SODIUM 138 MMOL/L (135-145); TOTAL PROTEIN 6.9 G/DL (6.4-8.2); eGFR 71 ML/MIN
[2021-03-10 06:29] LABS: TOTAL CARBON DIOXIDE 13.1 MMOL/L (24-32)
[2021-03-10] MEDS: oxcarbazepine 150mg tablet PO SCH ×2 (07:51→20:39)
[2021-03-10] MEDS: pantoprazole 40 MG vial IV SCH (07:53)
[2021-03-10] MEDS: topiramate 25mg tablet PO SCH (07:53)
[2021-03-10] MEDS: duloxetine 30mg CAPSULE.DR PO SCH (07:53)
[2021-03-10] MEDS: cloNIDine 0.1 mg tablet PO SCH (07:53)
[2021-03-10] MEDS: enoxaparin 40mg/0.4ml syringe SUBCUT SCH (07:54)
[2021-03-10] MEDS: K and/or MAG REPLACEMENT MC SCH ×2 (08:00→20:00)
[2021-03-10] MEDS: metoclopramide 5 mg/ml inj IV PRN (08:17)
[2021-03-10] MEDS: insulin Lispro (HumaLOG) vial - multi-dose SQ SCH ×2 (08:52→15:50)
[2021-03-10] MEDS ORDERED: sodium phosphate inj. 30 MMOL in dextrose 5%-water 250 ML IV PRN (09:15)
[2021-03-10] MEDS ORDERED: Neutra Phos packet PO PRN (09:15)
[2021-03-10] MEDS ORDERED: sodium bicarbonate (8.4%) inj. 50 MEQ in dextrose 5% water 500ml 250 ML IV PRN (09:15)
[2021-03-10] MEDS ORDERED: potassium Cl 40MEQ/1/2NS 520ml 520 ML IV PRN ×2 (09:15)
[2021-03-10] MEDS ORDERED: potassium Cl 20 mEq SR tablet PO PRN ×2 (09:15)
[2021-03-10] MEDS ORDERED: potassium CL 20mEq in D5-1/2NS 1,000 ML IV PRN (09:15)
[2021-03-10] MEDS ORDERED: insulin regular, human U-100 3ml vial - multi-dose IV PRN (09:15)
[2021-03-10] MEDS ORDERED: sodium bicarbonate (8.4%) inj. 100 MEQ in dextrose 5% water 500ml 500 ML IV PRN (09:15)
[2021-03-10] MEDS ORDERED: sodium phosphate inj. 15 MMOL in dextrose 5%-water 250 ML IV PRN (09:15)
[2021-03-10] MEDS ORDERED: normal saline 1000ml 1,000 ML IV SCH (09:15)
[2021-03-10] MEDS: Insulin Reg/NS 100units/100mL 100 ML IV SCH (09:46)
[2021-03-10 10:18] LABS: ALBUMIN 2.6 G/DL (3.4-5.0); ANION GAP 17 (8-16); BLOOD UREA NITROGEN 16 MG/DL (7-18); BUN/CREATININE RATIO 19.3 (6.6-38.0); CALCIUM 8.2 MG/DL (8.5-10.1); CHLORIDE 106 MMOL/L (99-107); CREATININE 0.83 MG/DL (0.40-0.90); GLUCOSE 419 MG/DL (70-104); PHOSPHORUS 2.7 MG/DL (2.3-4.5); POTASSIUM 4.6 MMOL/L (3.5-5.1); SODIUM 138 MMOL/L (135-145); TOTAL CARBON DIOXIDE 15.1 MMOL/L (24-32); eGFR 81 ML/MIN
[2021-03-10] MEDS: dextrose 5%-1/2 normal saline 1,000 ML IV SCH ×4 (10:20→21:58)
[2021-03-10 12:12] LABS: ALBUMIN 2.6 G/DL (3.4-5.0); ANION GAP 11 (8-16); BLOOD UREA NITROGEN 16 MG/DL (7-18); BUN/CREATININE RATIO 18.6 (6.6-38.0); CALCIUM 8.2 MG/DL (8.5-10.1); CHLORIDE 110 MMOL/L (99-107); CREATININE 0.86 MG/DL (0.40-0.90); GLUCOSE 338 MG/DL (70-104); PHOSPHORUS 2.3 MG/DL (2.3-4.5); POTASSIUM 4.2 MMOL/L (3.5-5.1); SODIUM 140 MMOL/L (135-145); TOTAL CARBON DIOXIDE 19.3 MMOL/L (24-32); eGFR 77 ML/MIN
[2021-03-10 13:31] LABS: ALBUMIN 2.6 G/DL (3.4-5.0); ANION GAP 9 (8-16); BLOOD UREA NITROGEN 17 MG/DL (7-18); BUN/CREATININE RATIO 23.9 (6.6-38.0); CALCIUM 8.1 MG/DL (8.5-10.1); CHLORIDE 111 MMOL/L (99-107); CREATININE 0.71 MG/DL (0.40-0.90); GLUCOSE 221 MG/DL (70-104); SODIUM 141 MMOL/L (135-145); TOTAL CARBON DIOXIDE 21.4 MMOL/L (24-32); eGFR > 90 ML/MIN
[2021-03-10 13:41] LABS: POTASSIUM 4.2 MMOL/L (3.5-5.1)
[2021-03-10] MEDS ORDERED: dextrose 50%-water 50ml dispensing syringe IV PRN ×2 (15:15)
[2021-03-10] MEDS ORDERED: glucagon, human recombinant 1mg kit SUBCUT PRN (15:15)
[2021-03-10] MEDS ORDERED: dextrose ORAL solution 15 GM/59 ML bottle PO PRN ×2 (15:15)
--- NOTE | 2021-03-10 18:21 | NUR ---
Problems reprioritized. Patient report given, questions answered & plan of care reviewed with VIOLETTE Angelo.
[2021-03-10] MEDS ORDERED: K and/or MAG REPLACEMENT MC SCH (20:00)
[2021-03-10] MEDS: risperiDONE 0.5mg tablet PO SCH (20:38)
[2021-03-10] MEDS: insulin glargine (Lantus) pen - multi-dose SQ SCH ×2 (21:00→21:32)
[2021-03-11] VITALS (18 sets, daily range): BP systolic 94–139; BP diastolic 48–87
[2021-03-11] MEDS: dextrose 5%-1/2 normal saline 1,000 ML IV SCH (03:40)
[2021-03-11 06:11] LABS: HEMOGLOBIN 10.4 g/dl (12.0-16.0); MEAN CORPUSCULAR HEMOGLOBIN 29.5 PG (27.0-31.0)
[2021-03-11 06:13] LABS: BASOPHILS # (AUTO) 0.1 X10'3 (0-0.2); BASOPHILS % (AUTO) 0.5 % (0-1); EOSINOPHILS # (AUTO) 0.2 X10'3 (0-0.9); EOSINOPHILS % (AUTO) 2.4 % (0-6); HEMATOCRIT 29.6 % (35.0-45.0); LYMPHOCYTES # (AUTO) 2.4 X10'3 (1.1-4.8); LYMPHOCYTES % (AUTO) 24.2 % (21-51); MEAN CORPUSCULAR VOLUME 84.2 FL (78-98); MEAN PLATELET VOLUME 7.7 FL (7.4-10.4); MONOCYTES # (AUTO) 0.5 X10'3 (0-0.9); MONOCYTES % (AUTO) 4.7 % (2-12); NEUTROPHILS # (AUTO) 6.8 X10'3 (1.8-7.7); NEUTROPHILS % (AUTO) 68.2 % (42-75); PLATELET COUNT 146 X10'3 (140-440); RED BLOOD COUNT 3.51 X10'6 (4.20-5.60); RED CELL DISTRIBUTION WIDTH 13.8 % (11.5-14.5)
--- NOTE | 2021-03-11 06:30 | NUR ---
Patient in room MEERA 344. I have received report from VIOLETTE Angelo and had the opportunity to ask questions and assume patient care.
[2021-03-11 06:34] LABS: ALANINE AMINOTRANSFERASE 35 U/L (12-78); ALBUMIN 2.7 G/DL (3.4-5.0); ALBUMIN/GLOBULIN RATIO 0.9 (1.1-1.5); ALKALINE PHOSPHATASE 88 IU/L (46-116); ANION GAP 13 (8-16); ASPARTATE AMINO TRANSFERASE 15 U/L (10-37); BILIRUBIN,TOTAL 0.3 MG/DL (0.1-1.0); BLOOD UREA NITROGEN 15 MG/DL (7-18); BUN/CREATININE RATIO 19.2 (6.6-38.0); CALCIUM 8.7 MG/DL (8.5-10.1); CHLORIDE 109 MMOL/L (99-107); CREATININE 0.78 MG/DL (0.40-0.90); GLUCOSE 162 MG/DL (70-104); MAGNESIUM 1.7 MG/DL (1.5-2.4); POTASSIUM 3.6 MMOL/L (3.5-5.1); SODIUM 142 MMOL/L (135-145); TOTAL CARBON DIOXIDE 20.1 MMOL/L (24-32); TOTAL PROTEIN 5.8 G/DL (6.4-8.2); eGFR 87 ML/MIN
[2021-03-11] MEDS: Insulin Reg/NS 100units/100mL 100 ML IV SCH (06:54)
[2021-03-11] MEDS: oxcarbazepine 150mg tablet PO SCH ×2 (07:46→20:36)
[2021-03-11] MEDS: duloxetine 30mg CAPSULE.DR PO SCH (07:46)
[2021-03-11] MEDS: topiramate 25mg tablet PO SCH (07:46)
[2021-03-11] MEDS: enoxaparin 40mg/0.4ml syringe SUBCUT SCH (07:47)
[2021-03-11] MEDS: pantoprazole 40 MG vial IV SCH (07:47)
[2021-03-11] MEDS: cloNIDine 0.1 mg tablet PO SCH (07:47)
[2021-03-11] MEDS: K and/or MAG REPLACEMENT MC SCH ×2 (08:00→20:00)
[2021-03-11] MEDS: insulin Lispro (HumaLOG) vial - multi-dose SQ SCH ×3 (08:48→20:56)
[2021-03-11 09:35] LABS: TOTAL CELLS COUNTED 100
[2021-03-11 09:36] LABS: PLATELET ESTIMATE NORMAL
--- NOTE | 2021-03-11 11:48 | NUR ---
Reassessment: Pt noted to have gone back into DKA 03/10, made NPO again though is on CCHO diet now, 25% of first meal today. No BM documented though receiving PRN Reglan. Will continue to monitor PO trends and make recommendations as appropriate. Pt remains confused and A&O x 1 per physical assessment. DM education not appropriate at this time, Pt would benefit from DM education once more stable. Recommendations: 1) Continue CCHO diet as tolerated 2) Monitor need for ONS/additional protein with diet advancement 3) Bowel care per rx 4) Weekl wts 5) DM education once stable, admit with DKA with BG 1246 mg/dL on admit, A1c 10.1 Addendum: 03/11/21 at [address] Amended: Links added.
[2021-03-11 14:25] LABS: ALBUMIN 2.6 G/DL (3.4-5.0); ANION GAP 14 (8-16); BLOOD UREA NITROGEN 15 MG/DL (7-18); BUN/CREATININE RATIO 19.2 (6.6-38.0); CALCIUM 8.3 MG/DL (8.5-10.1); CHLORIDE 103 MMOL/L (99-107); CREATININE 0.78 MG/DL (0.40-0.90); GLUCOSE 382 MG/DL (70-104); POTASSIUM 3.9 MMOL/L (3.5-5.1); SODIUM 136 MMOL/L (135-145); TOTAL CARBON DIOXIDE 18.7 MMOL/L (24-32); eGFR 87 ML/MIN
--- NOTE | 2021-03-11 16:45 | NUR ---
Report called to VIOLETTE Ruggiero on Surgical unit.
--- NOTE | 2021-03-11 17:00 | NUR ---
Pt transferred to 344B via wheelchair. Personal clothing sent home with Pt's mother Jo. Spoke with VIOLETTE Ruggiero before leaving pt.
--- NOTE | 2021-03-11 19:18 | NUR ---
Problems reprioritized. Patient report given, questions answered & plan of care reviewed with Lenin OAKES.
[2021-03-11] MEDS: risperiDONE 0.5mg tablet PO SCH (20:37)
[2021-03-11] MEDS: metoclopramide 5 mg/ml inj IV PRN (21:01)
[2021-03-12] MEDS: insulin glargine (Lantus) pen - multi-dose SQ SCH ×2 (00:26→22:10)
[2021-03-12] MEDS: insulin Lispro (HumaLOG) vial - multi-dose SQ SCH ×4 (00:33→22:15)
[2021-03-12 06:10] LABS: BASOPHILS % (AUTO) 0.5 % (0-1); EOSINOPHILS # (AUTO) 0.2 X10'3 (0-0.9); EOSINOPHILS % (AUTO) 2.2 % (0-6); HEMOGLOBIN 11.2 g/dl (12.0-16.0); LYMPHOCYTES % (AUTO) 21.2 % (21-51); MEAN CORPUSCULAR HEMOGLOBIN 29.2 PG (27.0-31.0); MEAN CORPUSCULAR HGB CONC 34.8 g/dL (33.0-36.5); MEAN CORPUSCULAR VOLUME 83.7 FL (78-98); MONOCYTES # (AUTO) 0.7 X10'3 (0-0.9); MONOCYTES % (AUTO) 7.7 % (2-12); NEUTROPHILS # (AUTO) 6.4 X10'3 (1.8-7.7); NEUTROPHILS % (AUTO) 68.4 % (42-75); PLATELET COUNT 165 X10'3 (140-440); RED BLOOD COUNT 3.83 X10'6 (4.20-5.60); RED CELL DISTRIBUTION WIDTH 13.7 % (11.5-14.5); WHITE BLOOD COUNT 9.4 X10'3 (4.5-11.0)
[2021-03-12 06:19] LABS: ALANINE AMINOTRANSFERASE 27 U/L (12-78); ALBUMIN 2.9 G/DL (3.4-5.0); ALBUMIN/GLOBULIN RATIO 0.9 (1.1-1.5); ALKALINE PHOSPHATASE 99 IU/L (46-116); ANION GAP 12 (8-16); ASPARTATE AMINO TRANSFERASE 9 U/L (10-37); BILIRUBIN,TOTAL 0.3 MG/DL (0.1-1.0); BLOOD UREA NITROGEN 19 MG/DL (7-18); BUN/CREATININE RATIO 24.4 (6.6-38.0); CALCIUM 8.8 MG/DL (8.5-10.1); CHLORIDE 103 MMOL/L (99-107); CREATININE 0.78 MG/DL (0.40-0.90); GLUCOSE 300 MG/DL (70-104); MAGNESIUM 1.7 MG/DL (1.5-2.4); POTASSIUM 3.9 MMOL/L (3.5-5.1); SODIUM 135 MMOL/L (135-145); TOTAL CARBON DIOXIDE 20.4 MMOL/L (24-32); TOTAL PROTEIN 6.1 G/DL (6.4-8.2); eGFR 87 ML/MIN
--- NOTE | 2021-03-12 06:39 | NUR ---
Patient in room MEERA 344. I have received report from Lenin Pederson and had the opportunity to ask questions and assume patient care. Addendum: 03/12/21 at 0730 by Yovana Kern RN incorrect patient
[2021-03-12] MEDS: cloNIDine 0.1 mg tablet PO SCH (07:53)
[2021-03-12] MEDS: topiramate 25mg tablet PO SCH (07:54)
[2021-03-12] MEDS: duloxetine 30mg CAPSULE.DR PO SCH (07:57)
[2021-03-12] MEDS: oxcarbazepine 150mg tablet PO SCH ×2 (08:00→22:17)
[2021-03-12] MEDS: K and/or MAG REPLACEMENT MC SCH ×2 (08:00→16:56)
[2021-03-12] MEDS: enoxaparin 40mg/0.4ml syringe SUBCUT SCH (08:02)
[2021-03-12] MEDS: pantoprazole 40 MG vial IV SCH (08:09)
--- NOTE | 2021-03-12 11:58 | NUR ---
UA collected at 1150 and sent to lab
--- NOTE | 2021-03-12 12:23 | NUR ---
DM consult: Provided pt w/ written and verbal diabetes education w/ RD contact info. Pt states she is motivated to change. Will continue to monitor. Addendum: 03/12/21 at [address] Amended: Links added.
[2021-03-12 12:32] LABS: COLOR,URINE AMBER (Yellow); UA COLLECTION TYPE NON-SPECIFIED
[2021-03-12 12:33] LABS: CLARITY,URINE CLOUDY (Clear); GLUCOSE, URINE >=1000 mg/dl (Neg); KETONES,URINE 80 mg/dl (Neg); LEUKOCYTE ESTERASE ,URINE NEGATIVE (Neg); NITRITES, URINE NEGATIVE (Neg); OCCULT BLOOD,URINE LARGE (Neg); PROTEIN,URINE NEGATIVE (Neg); UROBILINOGEN,URINE 0.2 E.U/dL (0.2-1.0)
[2021-03-12 12:38] LABS: BACTERIA,URINE FEW /HPF (Neg); RBC,URINE TNTC /HPF (0-2); SQUAMOUS EPITHELIAL CELL,UR MANY /LPF (FEW); WBC,URINE 0-4 /HPF (0-4)
[2021-03-12 19:00] VITALS: BP 146/77
[2021-03-12] MEDS: risperiDONE 0.5mg tablet PO SCH (22:16)
[2021-03-13] VITALS: BP 139/90
[2021-03-13 06:14] LABS: BASOPHILS % (AUTO) 0.4 % (0-1); EOSINOPHILS # (AUTO) 0.2 X10'3 (0-0.9); EOSINOPHILS % (AUTO) 2.1 % (0-6); HEMATOCRIT 34.1 % (35.0-45.0); HEMOGLOBIN 11.8 g/dl (12.0-16.0); LYMPHOCYTES # (AUTO) 1.9 X10'3 (1.1-4.8); LYMPHOCYTES % (AUTO) 18.4 % (21-51); MEAN CORPUSCULAR HEMOGLOBIN 29.3 PG (27.0-31.0); MEAN CORPUSCULAR HGB CONC 34.7 g/dL (33.0-36.5); MEAN CORPUSCULAR VOLUME 84.5 FL (78-98); MEAN PLATELET VOLUME 8.1 FL (7.4-10.4); MONOCYTES # (AUTO) 0.9 X10'3 (0-0.9); MONOCYTES % (AUTO) 9.1 % (2-12); NEUTROPHILS # (AUTO) 7.2 X10'3 (1.8-7.7); PLATELET COUNT 216 X10'3 (140-440); RED BLOOD COUNT 4.04 X10'6 (4.20-5.60); RED CELL DISTRIBUTION WIDTH 13.4 % (11.5-14.5); WHITE BLOOD COUNT 10.2 X10'3 (4.5-11.0)
[2021-03-13 06:29] LABS: ALANINE AMINOTRANSFERASE 27 U/L (12-78); ALBUMIN 3.1 G/DL (3.4-5.0); ALBUMIN/GLOBULIN RATIO 0.9 (1.1-1.5); ALKALINE PHOSPHATASE 122 IU/L (46-116); ANION GAP 11 (8-16); ASPARTATE AMINO TRANSFERASE 9 U/L (10-37); BILIRUBIN,TOTAL 0.3 MG/DL (0.1-1.0); BLOOD UREA NITROGEN 19 MG/DL (7-18); BUN/CREATININE RATIO 21.8 (6.6-38.0); CALCIUM 8.9 MG/DL (8.5-10.1); CHLORIDE 100 MMOL/L (99-107); CREATININE 0.87 MG/DL (0.40-0.90); GLUCOSE 436 MG/DL (70-104); MAGNESIUM 1.8 MG/DL (1.5-2.4); POTASSIUM 4.3 MMOL/L (3.5-5.1); SODIUM 134 MMOL/L (135-145); TOTAL CARBON DIOXIDE 22.6 MMOL/L (24-32); TOTAL PROTEIN 6.6 G/DL (6.4-8.2); eGFR 76 ML/MIN
[2021-03-13] MEDS ORDERED: pantoprazole 40mg Tablet.DR PO SCH (07:30)
[2021-03-13] MEDS: K and/or MAG REPLACEMENT MC SCH (08:00)
[2021-03-13] MEDS: topiramate 25mg tablet PO SCH (08:17)
[2021-03-13] MEDS: cloNIDine 0.1 mg tablet PO SCH (08:18)
[2021-03-13] MEDS: duloxetine 30mg CAPSULE.DR PO SCH (08:19)
[2021-03-13] MEDS: oxcarbazepine 150mg tablet PO SCH (08:21)
[2021-03-13] MEDS: enoxaparin 40mg/0.4ml syringe SUBCUT SCH (08:24)
[2021-03-13] MEDS: insulin Lispro (HumaLOG) vial - multi-dose SQ SCH ×2 (08:48→14:31)
--- NOTE | 2021-03-13 13:25 | NUR ---
Fall reported by Student nurse to this nurse. Pt stated that she was trying to get up and go to the bathroom and fell. Pt was not wearing her non-skid socks art the time. Pt assisted back to bed bu this nurse. paged to be made aware of fall. Pt currently sitting in bed watching television. Will continue to monitor.
[2021-03-13 13:30] VITALS: BP 112/68
[2021-03-13 14:00] VITALS: BP 131/80
--- NOTE | 2021-03-13 17:06 | NUR ---
Pt discharged home at 1638. Pt escorted to hospital lobby via wheelchair by nurse. Mother met in lobby and discharge reviewed. Pt and mother verbalized understanding.
--- NOTE | 2021-03-13 17:07 | NUR ---
Pt had 1 20 gauge IV to right forearm and 1 20 gauge to right hand that was removed by nurse prior to discharge. Pt tolerated well.
== END 2021-03-13 16:38 | disposition home health service (06) | DRG 720 ==
LOC: ER 11:48 → CANBEDREQ 17:46 → ER 18:02 → ICU 2S 18:02 → ER 03-08 12:56 → ICU 2S 03-08 12:56 → UNDOADMIN 03-08 12:58 → ICU 2S 03-08 12:58 → SUR 3N 03-11 17:05
PROVIDERS: ADMIT Internal Medicine Critical Care Medicine; ATTEND Internal Medicine Critical Care Medicine
DX: A41.9 Sepsis, unspecified organism (principal); E10.10 Type 1 diabetes mellitus with ketoacidosis without coma; Z20.822 Contact with and (suspected) exposure to COVID-19; R31.29 Other microscopic hematuria; F32.A Depression, unspecified; J45.909 Unspecified asthma, uncomplicated; Z88.2 Allergy status to sulfonamides; Z88.8 Allergy status to other drugs, medicaments and biological substances; Z88.1 Allergy status to other antibiotic agents; Z91.040 Latex allergy status; Z86.14 Personal history of Methicillin resistant Staphylococcus aureus infection; Z56.0 Unemployment, unspecified
CPT/HCPCS: 36415; 36600; 70450; 71045; 76770; 80048; 80053; 81001; 81025; 82803; 82948; 83036; 83605; 83735; 84100; 84145; 85007; 85018; 85025; 87040; 87081; 87635; 93005; 94640; 94760; 96374; 97110; 97116; 97161; 97530; 99285; A7015; C9113; C9803; G0378; J1200; J1650; J1815; J1956; J2060; J2370; J2543; J2765; J3370; J3480; J7030; J7050; J7060

== ENCOUNTER 2021-09-18 20:58 | Emergency (ER) | payer MEDICAID ==
[~2021-09-18] VITALS: Ht 144.8 cm; Wt 77.7 kg
[~2021-09-18 20:58] MED LIST changes: -ALBU18HF2 INH; +ATOR40TA72 PO; +CHOL100046 PO; +CLON0.1T2 PO; +DULO60CA65 PO; -GLU850T PO; -INSU100V11 SQ; -LANTUS SQ; -LEVO88TA39 PO; +LEVO88TA7 PO; +NAPR-996 PO; -OMEP20TA5 PO; +OXCA300T16 PO; +OXCA600T9 PO; +RISP0.5T65 PO; +TOPI50TA24 PO
[2021-09-19 00:05] LABS: EOSINOPHILS # (AUTO) 0.4 X10'3 (0-0.9); HEMOGLOBIN 14.3 g/dl (12.0-16.0); MEAN PLATELET VOLUME 8.3 FL (7.4-10.4)
[2021-09-19 00:07] LABS: BASOPHILS # (AUTO) 0.1 X10'3 (0-0.2); BASOPHILS % (AUTO) 0.9 % (0-1); EOSINOPHILS % (AUTO) 2.9 % (0-6); LYMPHOCYTES # (AUTO) 3.6 X10'3 (1.1-4.8); LYMPHOCYTES % (AUTO) 27.3 % (21-51); MEAN CORPUSCULAR HEMOGLOBIN 27.9 PG (27.0-31.0); MONOCYTES # (AUTO) 1.2 X10'3 (0-0.9); MONOCYTES % (AUTO) 9.1 % (2-12); NEUTROPHILS % (AUTO) 59.8 % (42-75); PLATELET COUNT 249 X10'3 (140-440); RED BLOOD COUNT 5.12 X10'6 (4.20-5.60); RED CELL DISTRIBUTION WIDTH 14.8 % (11.5-14.5); WHITE BLOOD COUNT 13.3 X10'3 (4.5-11.0)
[2021-09-19 00:17] LABS: ALANINE AMINOTRANSFERASE 36 U/L (12-78); ALBUMIN 3.9 G/DL (3.4-5.0); ALBUMIN/GLOBULIN RATIO 1.1 (1.1-1.5); ALKALINE PHOSPHATASE 90 IU/L (46-116); ANION GAP 11 (8-16); ASPARTATE AMINO TRANSFERASE 16 U/L (10-37); BILIRUBIN,TOTAL 0.2 MG/DL (0.1-1.0); BLOOD UREA NITROGEN 23 MG/DL (7-18); BUN/CREATININE RATIO 34.3 (6.6-38.0); CALCIUM 8.8 MG/DL (8.5-10.1); CHLORIDE 105 MMOL/L (99-107); CREATININE 0.67 MG/DL (0.40-0.90); GLUCOSE 100 MG/DL (70-104); POTASSIUM 3.3 MMOL/L (3.5-5.1); SODIUM 139 MMOL/L (135-145); TOTAL CARBON DIOXIDE 22.6 MMOL/L (24-32); TOTAL PROTEIN 7.4 G/DL (6.4-8.2); eGFR > 90 ML/MIN
[2021-09-19 01:31] VITALS: BP 148/84
== END 2021-09-19 01:46 | disposition home or self-care (01) ==
LOC: ER 21:00
DX: E11.9 Type 2 diabetes mellitus without complications (principal); R51.9 Headache, unspecified; J45.909 Unspecified asthma, uncomplicated; F31.9 Bipolar disorder, unspecified; Z56.0 Unemployment, unspecified; Z87.448 Personal history of other diseases of urinary system; Z88.2 Allergy status to sulfonamides; Z88.6 Allergy status to analgesic agent; Z88.1 Allergy status to other antibiotic agents; Z88.5 Allergy status to narcotic agent; Z91.040 Latex allergy status; Z88.8 Allergy status to other drugs, medicaments and biological substances; Z79.899 Other long term (current) drug therapy
CPT/HCPCS: 36415; 80053; 82948; 85025; 99285

== ENCOUNTER 2021-10-21 15:17 | Emergency (ER) | payer MEDICAID ==
[~2021-10-21] VITALS: Ht 144.8 cm; Wt 77.7 kg
[2021-10-21 15:31] VITALS: BP 111/75
[2021-10-21 15:58] LABS: BASOPHILS % (AUTO) 0.5 % (0-1); EOSINOPHILS % (AUTO) 0 % (0-6); HEMATOCRIT 41.4 % (35.0-45.0); HEMOGLOBIN 13.9 g/dl (12.0-16.0); LYMPHOCYTES # (AUTO) 0.9 X10'3 (1.1-4.8); LYMPHOCYTES % (AUTO) 9.1 % (21-51); MEAN CORPUSCULAR HEMOGLOBIN 28.2 PG (27.0-31.0); MEAN CORPUSCULAR HGB CONC 33.6 g/dL (33.0-36.5); MEAN PLATELET VOLUME 8.4 FL (7.4-10.4); MONOCYTES # (AUTO) 0.6 X10'3 (0-0.9); NEUTROPHILS # (AUTO) 7.8 X10'3 (1.8-7.7); NEUTROPHILS % (AUTO) 83.4 % (42-75); PLATELET COUNT 163 X10'3 (140-440); RED BLOOD COUNT 4.92 X10'6 (4.20-5.60); RED CELL DISTRIBUTION WIDTH 14.2 % (11.5-14.5); WHITE BLOOD COUNT 9.3 X10'3 (4.5-11.0)
[2021-10-21 16:14] LABS: CLARITY,URINE SLIGHTLY CLOUDY (Clear); COLOR,URINE YELLOW (Yellow); GLUCOSE, URINE 500 mg/dl (Neg); KETONES,URINE NEGATIVE (Neg); LEUKOCYTE ESTERASE ,URINE NEGATIVE (Neg); NITRITES, URINE NEGATIVE (Neg); OCCULT BLOOD,URINE LARGE (Neg); PH,URINE 5.5 (4.8-8.0); PROTEIN,URINE 30 mg/dl (Neg); UROBILINOGEN,URINE 0.2 E.U/dL (0.2-1.0)
[2021-10-21 16:15] LABS: UA COLLECTION TYPE NON-SPECIFIED
[2021-10-21 16:16] LABS: URINE HCG NEGATIVE (NEG)
[2021-10-21 16:23] LABS: AMORPHOUS URATES 1+; BACTERIA,URINE 1+ /HPF (Neg); SQUAMOUS EPITHELIAL CELL,UR MANY /LPF (FEW)
[2021-10-21 16:29] LABS: ALANINE AMINOTRANSFERASE 49 U/L (12-78); ALBUMIN 3.5 G/DL (3.4-5.0); ALBUMIN/GLOBULIN RATIO 0.9 (1.1-1.5); ALKALINE PHOSPHATASE 111 IU/L (46-116); ANION GAP 10 (8-16); ASPARTATE AMINO TRANSFERASE 27 U/L (10-37); BILIRUBIN,TOTAL 0.2 MG/DL (0.1-1.0); BLOOD UREA NITROGEN 20 MG/DL (7-18); BUN/CREATININE RATIO 18.2 (6.6-38.0); CALCIUM 8.4 MG/DL (8.5-10.1); CHLORIDE 103 MMOL/L (99-107); GLUCOSE 275 MG/DL (70-104); LIPASE 63 U/L (73-393); SODIUM 136 MMOL/L (135-145); TOTAL CARBON DIOXIDE 23.4 MMOL/L (24-32); TOTAL PROTEIN 7.3 G/DL (6.4-8.2); eGFR 58 ML/MIN
[2021-10-21] MEDS ORDERED: normal saline 1000ML IV soln IVB ONE ×2 (18:15→18:20)
[2021-10-21] MEDS ORDERED: ibuprofen tablet 400 MG TABLET PO ONE (18:45)
[2021-10-21] MEDS ORDERED: ciprofloxacin 250mg tablet PO ONE (19:30)
[2021-10-21] MEDS ORDERED: CIPR-20 PO (20:00)
--- NOTE | 2021-10-21 20:29 | NUR ---
iv dc'd pt being discharged dressing applied
== END 2021-10-21 20:30 | disposition home or self-care (01) ==
LOC: ER 15:18
DX: N39.0 Urinary tract infection, site not specified (principal); E11.65 Type 2 diabetes mellitus with hyperglycemia; R11.0 Nausea; R10.84 Generalized abdominal pain; R50.9 Fever, unspecified; J45.909 Unspecified asthma, uncomplicated; F31.9 Bipolar disorder, unspecified; Z87.440 Personal history of urinary (tract) infections; Z86.14 Personal history of Methicillin resistant Staphylococcus aureus infection; Z98.890 Other specified postprocedural states; Z56.0 Unemployment, unspecified; Z88.2 Allergy status to sulfonamides; Z88.6 Allergy status to analgesic agent; Z88.1 Allergy status to other antibiotic agents; Z88.8 Allergy status to other drugs, medicaments and biological substances; Z91.040 Latex allergy status; Z79.2 Long term (current) use of antibiotics; Z79.899 Other long term (current) drug therapy
CPT/HCPCS: 36415; 71045; 80053; 81001; 81025; 82948; 83605; 83690; 85025; 86140; 87040; 96360; 99284; J7030

== ENCOUNTER 2022-02-25 18:34 | Inpatient (IN) | payer MEDICAID ==
[~2022-02-25] VITALS: Ht 144.8 cm; Wt 73.6 kg
[2022-02-25 18:59] LABS: BASOPHILS # (AUTO) 0.2 X10'3 (0-0.2); BASOPHILS % (AUTO) 1.4 % (0-1); EOSINOPHILS % (AUTO) 0.3 % (0-6); HEMATOCRIT 41.7 % (35.0-45.0); HEMOGLOBIN 13.9 g/dl (12.0-16.0); LYMPHOCYTES % (AUTO) 12.8 % (21-51); MEAN CORPUSCULAR HEMOGLOBIN 28.9 PG (27.0-31.0); MEAN CORPUSCULAR HGB CONC 33.3 g/dL (33.0-36.5); MEAN CORPUSCULAR VOLUME 86.6 FL (78-98); MEAN PLATELET VOLUME 8.9 FL (7.4-10.4); MONOCYTES # (AUTO) 0.6 X10'3 (0-0.9); MONOCYTES % (AUTO) 3.7 % (2-12); NEUTROPHILS # (AUTO) 12.6 X10'3 (1.8-7.7); NEUTROPHILS % (AUTO) 81.8 % (42-75); PLATELET COUNT 237 X10'3 (140-440); RED BLOOD COUNT 4.81 X10'6 (4.20-5.60); RED CELL DISTRIBUTION WIDTH 13.8 % (11.5-14.5); WHITE BLOOD COUNT 15.4 X10'3 (4.5-11.0)
[2022-02-25] MEDS ORDERED: mag hydrox/Alum hydrox/simeth 30ml oral suspension PO ONE (19:00)
[2022-02-25 19:14] LABS: ALANINE AMINOTRANSFERASE 52 U/L (12-78); ALBUMIN 4.1 G/DL (3.4-5.0); ALBUMIN/GLOBULIN RATIO 1.2 (1.1-1.5); ALKALINE PHOSPHATASE 128 IU/L (46-116); ANION GAP 23 (8-16); ASPARTATE AMINO TRANSFERASE 20 U/L (10-37); BILIRUBIN,TOTAL 0.4 MG/DL (0.1-1.0); BLOOD UREA NITROGEN 26 MG/DL (7-18); BUN/CREATININE RATIO 18.8 (6.6-38.0); CALCIUM 9.2 MG/DL (8.5-10.1); CHLORIDE 100 MMOL/L (99-107); CREATININE 1.38 MG/DL (0.40-0.90); POTASSIUM 5.2 MMOL/L (3.5-5.1); SODIUM 136 MMOL/L (135-145); TOTAL PROTEIN 7.5 G/DL (6.4-8.2); eGFR 45 ML/MIN
[2022-02-25] MEDS ORDERED: normal saline 1000ml 1,000 ML IV ONE ×2 (19:15)
[2022-02-25 19:19] LABS: GLUCOSE 584 MG/DL (70-104); TOTAL CARBON DIOXIDE 13.5 MMOL/L (24-32)
[2022-02-25 19:30] LABS: ABG BASE EXCESS -19.9 mmol/L (-2.0-2.0); ABG HCO3 7.8 mmol/L (22.0-26.0); ABG OXYGEN SATURATION 98.5 % (94-97); ABG PCO2 (T) 24.5 mmHg (32.0-45.0); ABG PO2 (T) 167.8 mmHg (75.0-100.0); ALLEN'S TEST POSITIVE; FCOHb 0.3 % (0.0-3.9); FLOW 2 L/min; FMetHb 0.4 % (0.0-1.5); FO2Hb 97.8 % (94-97); PATIENT TEMPERATURE 36.7; TOTAL HEMOGLOBIN 13.4 G/dl (12.0-16.0)
[2022-02-25] MEDS ORDERED: insulin regular, human U-100 3ml vial - multi-dose IV PRN ×2 (19:30→20:30)
[2022-02-25 19:33] LABS: CLARITY,URINE SLIGHTLY CLOUDY (Clear); COLOR,URINE YELLOW (Yellow); GLUCOSE, URINE >=1000 mg/dl (Neg); KETONES,URINE >=80 mg/dl (Neg); LEUKOCYTE ESTERASE ,URINE NEGATIVE (Neg); NITRITES, URINE NEGATIVE (Neg); OCCULT BLOOD,URINE SMALL (Neg); PH,URINE 5.5 (4.8-8.0); PROTEIN,URINE TRACE mg/dl (Neg); UROBILINOGEN,URINE 0.2 E.U/dL (0.2-1.0)
[2022-02-25 19:45] LABS: UA COLLECTION TYPE NON-SPECIFIED
[2022-02-25 19:53] LABS: SQUAMOUS EPITHELIAL CELL,UR MODERATE /LPF (FEW)
[2022-02-25 19:57] LABS: YEAST MANY /HPF (NEGATIVE)
[2022-02-25 19:58] LABS: BACTERIA,URINE NONE SEEN /HPF (Neg); RBC,URINE 0-2 /HPF (0-2); WBC,URINE 0-4 /HPF (0-4)
[2022-02-25] MEDS ORDERED: Insulin Reg/NS 100units/100mL 100 ML IV ONE (20:30)
[2022-02-25] MEDS ORDERED: ondansetron/PF 4mg/2ml inj IV ONE (22:20)
[2022-02-25] MEDS ORDERED: magnesium hydroxide 30ml (MOM) UD suspension PO PRN (22:55)
[2022-02-25] MEDS ORDERED: ondansetron/PF 4mg/2ml inj IV PRN (22:55)
[2022-02-25] MEDS ORDERED: acetaminophen 325mg tablet PO PRN (22:55)
[2022-02-25] MEDS ORDERED: normal saline 1000ml 1,000 ML IV SCH (22:55)
[2022-02-25 23:14] LABS: URINE HCG NEGATIVE (NEG)
[2022-02-25] MEDS: mag hydrox/Alum hydrox/simeth 30ml oral suspension PO PRN (23:35)
[2022-02-25 23:43] LABS: ALBUMIN 3.9 G/DL (3.4-5.0); ANION GAP 23 (8-16); BLOOD UREA NITROGEN 21 MG/DL (7-18); BUN/CREATININE RATIO 16.8 (6.6-38.0); CALCIUM 8.7 MG/DL (8.5-10.1); CHLORIDE 103 MMOL/L (99-107); CREATININE 1.25 MG/DL (0.40-0.90); GLUCOSE 405 MG/DL (70-104); POTASSIUM 4.6 MMOL/L (3.5-5.1); SODIUM 137 MMOL/L (135-145); eGFR 50 ML/MIN
[2022-02-26] MEDS ORDERED: proCHLORperazine 10 MG/2 ml inj IV ONE (00:25)
[2022-02-26 03:22] LABS: ALANINE AMINOTRANSFERASE 49 U/L (12-78); ALBUMIN 3.6 G/DL (3.4-5.0); ALBUMIN/GLOBULIN RATIO 1.1 (1.1-1.5); ALKALINE PHOSPHATASE 113 IU/L (46-116); ANION GAP 17 (8-16); BILIRUBIN,TOTAL 0.4 MG/DL (0.1-1.0); BLOOD UREA NITROGEN 19 MG/DL (7-18); BUN/CREATININE RATIO 15.7 (6.6-38.0); CALCIUM 8.2 MG/DL (8.5-10.1); CHLORIDE 110 MMOL/L (99-107); CREATININE 1.21 MG/DL (0.40-0.90); GLUCOSE 262 MG/DL (70-104); SODIUM 140 MMOL/L (135-145); TOTAL PROTEIN 6.8 G/DL (6.4-8.2); eGFR 52 ML/MIN
[2022-02-26 03:23] LABS: ASPARTATE AMINO TRANSFERASE 26 U/L (10-37); POTASSIUM 4.9 MMOL/L (3.5-5.1)
[2022-02-26 03:24] LABS: TOTAL CARBON DIOXIDE 13.1 MMOL/L (24-32)
[2022-02-26 03:32] LABS: BASOPHILS # (AUTO) 0.1 X10'3 (0-0.2); BASOPHILS % (AUTO) 0.9 % (0-1); EOSINOPHILS % (AUTO) 0 % (0-6); HEMATOCRIT 37.7 % (35.0-45.0); HEMOGLOBIN 12.9 g/dl (12.0-16.0); LYMPHOCYTES # (AUTO) 2.2 X10'3 (1.1-4.8); LYMPHOCYTES % (AUTO) 13.7 % (21-51); MEAN CORPUSCULAR HEMOGLOBIN 28.8 PG (27.0-31.0); MEAN CORPUSCULAR HGB CONC 34.2 g/dL (33.0-36.5); MEAN CORPUSCULAR VOLUME 84.2 FL (78-98); MEAN PLATELET VOLUME 8.5 FL (7.4-10.4); MONOCYTES % (AUTO) 6.2 % (2-12); NEUTROPHILS # (AUTO) 12.8 X10'3 (1.8-7.7); NEUTROPHILS % (AUTO) 79.2 % (42-75); PLATELET COUNT 244 X10'3 (140-440); RED BLOOD COUNT 4.48 X10'6 (4.20-5.60); RED CELL DISTRIBUTION WIDTH 13.8 % (11.5-14.5); WHITE BLOOD COUNT 16.1 X10'3 (4.5-11.0)
[2022-02-26] MEDS ORDERED: TOPI25TA49 PO (03:33)
[2022-02-26] MEDS ORDERED: BREX2TAB PO (03:33)
[2022-02-26] MEDS ORDERED: CHOL100017 PO (03:33)
[2022-02-26] MEDS ORDERED: dextrose 5%-1/2 normal saline 1,000 ML IV ONE (04:00)
--- NOTE | 2022-02-26 07:15 | NUR ---
Received patient on insulin drip 7ml/hour and d5 1/2 NS on 150ml/hour. vital signs rechecked.
[2022-02-26 08:09] LABS: ALANINE AMINOTRANSFERASE 44 U/L (12-78); ALBUMIN 3.4 G/DL (3.4-5.0); ALBUMIN/GLOBULIN RATIO 1.1 (1.1-1.5); ALKALINE PHOSPHATASE 103 IU/L (46-116); ANION GAP 13 (8-16); ASPARTATE AMINO TRANSFERASE 14 U/L (10-37); BILIRUBIN,TOTAL 0.2 MG/DL (0.1-1.0); BLOOD UREA NITROGEN 16 MG/DL (7-18); CALCIUM 8.2 MG/DL (8.5-10.1); CHLORIDE 109 MMOL/L (99-107); CREATININE 1.23 MG/DL (0.40-0.90); GLUCOSE 243 MG/DL (70-104); POTASSIUM 3.9 MMOL/L (3.5-5.1); SODIUM 140 MMOL/L (135-145); TOTAL CARBON DIOXIDE 18.3 MMOL/L (24-32); TOTAL PROTEIN 6.5 G/DL (6.4-8.2); eGFR 51 ML/MIN
[2022-02-26] MEDS ORDERED: MESSAGE TO PHARMACY PO ONE (08:45)
[2022-02-26] MEDS ORDERED: magnesium 4gm in 100ml NS 100 ML IV PRN (08:45)
[2022-02-26] MEDS ORDERED: glucagon, human recombinant 1mg kit SUBCUT PRN (08:45)
[2022-02-26] MEDS ORDERED: magnesium Cl slow-release 64mg tablet PO PRN (08:45)
[2022-02-26] MEDS ORDERED: dextrose 50%-water 50ml dispensing syringe IV PRN ×2 (08:45)
[2022-02-26] MEDS ORDERED: DEXTROSE 15 GM of carb/4 tabs (each vial/BOTTLE has 4 tablets) PO PRN ×2 (08:45)
[2022-02-26] MEDS ORDERED: potassium Cl 20 mEq SR tablet PO PRN ×2 (08:45)
--- NOTE | 2022-02-26 08:45 | NUR ---
spoke to dr. weinberg on phone. anion gap 13, co2 18, BS 226. he said he put new orders in for hypo/hyperglycemia protocol. Wants insulin stopped.
[2022-02-26] MEDS: levoTHYROXINE 88mcg tablet PO SCH (09:38)
[2022-02-26] MEDS: duloxetine 30mg CAPSULE.DR PO SCH (09:39)
[2022-02-26] MEDS: docusate sod 100mg capsule PO SCH ×2 (09:39→21:46)
[2022-02-26] MEDS: atorvastatin 20mg tablet PO SCH (09:40)
[2022-02-26] MEDS: heparin, porcine 5000 units/ml vial SQ SCH ×2 (09:40→21:46)
[2022-02-26] MEDS: normal saline 1000ml 1,000 ML IV SCH ×3 (09:40→20:36)
--- NOTE | 2022-02-26 09:45 | NUR ---
trileptal po ,will call pharmacy.
[2022-02-26 10:19] LABS: CHOL/HDL RATIO 2.7 (0.00-4.99); CHOLESTEROL 95 MG/DL (0-200); HDL CHOLESTEROL 35 MG/DL (35-60); LDL CHOLESTEROL 26 MG/DL (50-100); TRIGLYCERIDES 248 MG/DL (20-135)
[2022-02-26 10:33] LABS: HEMOGLOBIN A1C 9.5 % (4.5-6.2)
[2022-02-26] MEDS: oxcarbazepine 150mg tablet PO SCH ×2 (11:28→21:47)
[2022-02-26 12:12] LABS: ABG BASE EXCESS -16.5 mmol/L (-2.0-2.0); ABG HCO3 9.5 mmol/L (22.0-26.0); ABG OXYGEN SATURATION 97.4 % (94-97); FCOHb 0.1 % (0.0-3.9); FMetHb 0.4 % (0.0-1.5); FO2Hb 96.9 % (94-97)
--- NOTE | 2022-02-26 12:12 | NUR ---
RT AT BEDSIDE.
--- NOTE | 2022-02-26 12:18 | NUR ---
PT TAKES NEXIUM AT HOME FOR GERD, ADDED TO MED REC, WILL NOTIFY ANSELMO FOR NEW ORDER.
[2022-02-26] MEDS ORDERED: ESOM20CA PO (12:20)
--- NOTE | 2022-02-26 12:24 | NUR ---
SPOKE TO PHARMACY ABOUT DIFLUCAN IV, THEY PAGED ANSELMO 3 TIMES TO VERIFY DOSE, NO RESPONESE. PHARMACY WANTS TO KNOW PO 150MG OR LOADING DOSE FOR IV.
--- NOTE | 2022-02-26 13:00 | NUR ---
Called pharmacy to request short acting insulin since pt met glycemic protocol.
[2022-02-26] MEDS: fluconazole-Diflucan 100MG/NS 50 ML IV SCH (13:10)
[2022-02-26] MEDS: mag hydrox/Alum hydrox/simeth 30ml oral suspension PO PRN ×2 (13:16→18:00)
--- NOTE | 2022-02-26 13:55 | NUR ---
Still no insulin,called pharmacy again.
--- NOTE | 2022-02-26 14:15 | NUR ---
requested tray from dietary.
[2022-02-26] MEDS: insulin Lispro (HumaLOG) vial - multi-dose SQ SCH ×3 (14:26→22:46)
--- NOTE | 2022-02-26 14:47 | NUR ---
RECD REPORT FROM LAND SURVEYING SURVEY WORKERVIOLETTE CAMPBELL
[2022-02-26 15:23] VITALS: BP 130/63
--- NOTE | 2022-02-26 16:09 | NUR ---
PAGED DR BRIONES RE: Message: DIA TERRY. + BLOOD CULTURE. G+ COCCI IN CLUSTERS. [facility] 5441 Transaction number: [id number]
[2022-02-26 18:00] VITALS: BP 134/66
--- NOTE | 2022-02-26 18:07 | NUR ---
Problems reprioritized. Patient report given, questions answered & plan of care reviewed with SIVAKUMAR OAKES.
--- NOTE | 2022-02-26 18:21 | NUR ---
Patient in room PCU 2368E. I have received report from Kalpana OAKES and had the opportunity to ask questions and assume patient care. Pt is sitting high fowlers in bed eating dinner. Pt has fiance at bedside. Pt declines any c/o pain. Pt had c/o nausea. Please see interventions. Pt on RA. No s/s of distress. BLL, call light within reach, frequently used items in reach, frequent rounding, risk management internship socks on. Will continue to monitor.
--- NOTE | 2022-02-26 19:59 | NUR ---
PAGER ID: [phone] MESSAGE: [id number] Kalyn Gonzalez- having c/o nausea and pain. May this Pt receive and order for Compazine and ibuprofen. Pt has many allergies. Thanks Lisandra Ford EXT- [phone]
[2022-02-26] MEDS: K and/or MAG REPLACEMENT MC SCH (20:00)
[2022-02-26] MEDS ORDERED: ondansetron/PF 4mg/2ml inj IV PRN (21:15)
[2022-02-26] MEDS ORDERED: ondansetron 4mg rapidly disintigrating tab PO PRN (21:15)
[2022-02-26] MEDS ORDERED: traMADol 50MG tablet PO ONE (21:20)
--- NOTE | 2022-02-26 21:22 | NUR ---
Second Page PAGER ID: [phone] MESSAGE: DIA TERRY [id number], Requesting IBPROFEN for pain and COMPAZINE for n/v. Pt has many allergies. Lisandra MARADIAGA 544 Addendum: 02/26/22 at 2131 by Lisandra Salas RN called primary nurse going over pt info. imputing new orders. Please see interventions.
[2022-02-26] MEDS: topiramate 25mg tablet PO SCH (21:47)
[2022-02-26 21:50] VITALS: BP 128/66
[2022-02-26 22:00] VITALS: BP 135/83
[2022-02-26] MEDS: insulin glargine (Lantus) pen - multi-dose SQ SCH (22:47)
[2022-02-27] MEDS: metoclopramide 5 mg/ml inj IV PRN ×3 (00:35→14:02)
[2022-02-27 02:00] VITALS: BP 140/72
[2022-02-27] MEDS: mag hydrox/Alum hydrox/simeth 30ml oral suspension PO PRN (03:48)
[2022-02-27] MEDS ORDERED: vancomycin/NS 1 GM ADD-VANTAGE 250 ML IV SCH ×2 (03:49→09:35)
[2022-02-27 06:00] VITALS: BP 152/77
[2022-02-27 06:18] LABS: BASOPHILS # (AUTO) 0.1 X10'3 (0-0.2); BASOPHILS % (AUTO) 0.6 % (0-1); EOSINOPHILS % (AUTO) 0 % (0-6); HEMATOCRIT 38.7 % (35.0-45.0); HEMOGLOBIN 12.9 g/dl (12.0-16.0); LYMPHOCYTES # (AUTO) 2.3 X10'3 (1.1-4.8); LYMPHOCYTES % (AUTO) 16.9 % (21-51); MEAN CORPUSCULAR HEMOGLOBIN 29.1 PG (27.0-31.0); MEAN CORPUSCULAR HGB CONC 33.4 g/dL (33.0-36.5); MEAN PLATELET VOLUME 8.6 FL (7.4-10.4); MONOCYTES # (AUTO) 0.9 X10'3 (0-0.9); MONOCYTES % (AUTO) 6.7 % (2-12); NEUTROPHILS # (AUTO) 10.3 X10'3 (1.8-7.7); NEUTROPHILS % (AUTO) 75.8 % (42-75); PLATELET COUNT 229 X10'3 (140-440); RED BLOOD COUNT 4.44 X10'6 (4.20-5.60); RED CELL DISTRIBUTION WIDTH 14.7 % (11.5-14.5); WHITE BLOOD COUNT 13.6 X10'3 (4.5-11.0)
--- NOTE | 2022-02-27 06:21 | NUR ---
Problems reprioritized. Patient report given, questions answered & plan of care reviewed with Kalpana OAKES.
[2022-02-27 06:48] LABS: ALANINE AMINOTRANSFERASE 37 U/L (12-78); ALBUMIN 3.5 G/DL (3.4-5.0); ALBUMIN/GLOBULIN RATIO 1.1 (1.1-1.5); ALKALINE PHOSPHATASE 110 IU/L (46-116); ANION GAP 23 (8-16); ASPARTATE AMINO TRANSFERASE 11 U/L (10-37); BILIRUBIN,TOTAL 0.4 MG/DL (0.1-1.0); BLOOD UREA NITROGEN 9 MG/DL (7-18); BUN/CREATININE RATIO 8.3 (6.6-38.0); CALCIUM 8.1 MG/DL (8.5-10.1); CHLORIDE 102 MMOL/L (99-107); CREATININE 1.08 MG/DL (0.40-0.90); GLUCOSE 433 MG/DL (70-104); MAGNESIUM 2.1 MG/DL (1.5-2.4); PHOSPHORUS 1.6 MG/DL (2.3-4.5); POTASSIUM 4.8 MMOL/L (3.5-5.1); SODIUM 133 MMOL/L (135-145); TOTAL PROTEIN 6.6 G/DL (6.4-8.2); eGFR 59 ML/MIN
[2022-02-27 06:55] LABS: TOTAL CARBON DIOXIDE 8.4 MMOL/L (24-32)
--- NOTE | 2022-02-27 07:07 | NUR ---
PAGED DR العراقي RE: PAGER ID: [phone] MESSAGE: DIA TERRY. CO2 8.4. [facility] 1225
[2022-02-27 07:12] VITALS: BP 152/77
[2022-02-27] MEDS: K and/or MAG REPLACEMENT MC SCH (07:18)
[2022-02-27] MEDS: fluconazole-Diflucan 100MG/NS 50 ML IV SCH (07:30)
[2022-02-27] MEDS: insulin Lispro (HumaLOG) vial - multi-dose SQ SCH (07:35)
[2022-02-27] MEDS: docusate sod 100mg capsule PO SCH (08:00)
[2022-02-27] MEDS: duloxetine 30mg CAPSULE.DR PO SCH (08:00)
[2022-02-27] MEDS: oxcarbazepine 150mg tablet PO SCH ×2 (08:00→21:00)
[2022-02-27] MEDS: atorvastatin 20mg tablet PO SCH (08:00)
[2022-02-27] MEDS: levoTHYROXINE 88mcg tablet PO SCH (08:00)
--- NOTE | 2022-02-27 08:02 | NUR ---
PAGED DR العراقي RE; PAGER ID: [phone] MESSAGE: DIA TERRY. PT NAUSEATED.AFTER REGLAN GIVEN, ZOFRAN ALLERGY. CAN I GET AN ORDER FOR ALTERNATIVE MED. [facility] 2920
[2022-02-27] MEDS ORDERED: sodium phosphate inj. 15 MMOL in dextrose 5%-water 250 ML IV PRN (08:20)
[2022-02-27] MEDS ORDERED: potassium Cl 40MEQ/1/2NS 520ml 520 ML IV PRN ×2 (08:20)
[2022-02-27] MEDS ORDERED: sodium phosphate inj. 30 MMOL in dextrose 5%-water 250 ML IV PRN (08:20)
[2022-02-27] MEDS ORDERED: potassium Cl 20 mEq SR tablet PO PRN (08:20)
[2022-02-27] MEDS ORDERED: insulin regular, human U-100 3ml vial - multi-dose IV PRN (08:20)
[2022-02-27] MEDS: normal saline 1000ml 1,000 ML IV SCH ×6 (08:20→16:20)
[2022-02-27] MEDS ORDERED: potassium CL 20mEq in D5-1/2NS 1,000 ML IV PRN (08:20)
[2022-02-27] MEDS ORDERED: sodium bicarbonate (8.4%) inj. 50 MEQ in dextrose 5% water 500ml 250 ML IV PRN (08:20)
--- NOTE | 2022-02-27 08:45 | NUR ---
REPORT GIVEN TO QUAN OAKES
[2022-02-27] MEDS ORDERED: SODIUM BICARBONATE IV PRN (08:56)
[2022-02-27] MEDS ORDERED: DEXTROSE 5% IV PRN (08:56)
[2022-02-27] MEDS ORDERED: WATER IV PRN (08:56)
[2022-02-27] MEDS ORDERED: proMETHazine 25mg tablet PO PRN (09:00)
[2022-02-27] MEDS: heparin, porcine 5000 units/ml vial SQ SCH (09:06)
[2022-02-27 10:00] LABS: ALBUMIN 3.6 G/DL (3.4-5.0); ANION GAP 25 (8-16); BLOOD UREA NITROGEN 11 MG/DL (7-18); BUN/CREATININE RATIO 9.7 (6.6-38.0); CALCIUM 8.1 MG/DL (8.5-10.1); CHLORIDE 100 MMOL/L (99-107); CREATININE 1.13 MG/DL (0.40-0.90); GLUCOSE 432 MG/DL (70-104); PHOSPHORUS 1.8 MG/DL (2.3-4.5); SODIUM 131 MMOL/L (135-145); eGFR 56 ML/MIN
[2022-02-27 10:03] LABS: POTASSIUM 4.9 MMOL/L (3.5-5.1)
[2022-02-27 10:09] LABS: TOTAL CARBON DIOXIDE 6.2 MMOL/L (24-32)
[2022-02-27] MEDS: Insulin Reg/NS 100units/100mL 100 ML IV SCH (10:16)
[2022-02-27 11:40] LABS: ALBUMIN 3.8 G/DL (3.4-5.0); ANION GAP 25 (8-16); BLOOD UREA NITROGEN 10 MG/DL (7-18); BUN/CREATININE RATIO 8.5 (6.6-38.0); CALCIUM 8.3 MG/DL (8.5-10.1); CHLORIDE 100 MMOL/L (99-107); CREATININE 1.17 MG/DL (0.40-0.90); GLUCOSE 369 MG/DL (70-104); POTASSIUM 4.5 MMOL/L (3.5-5.1); SODIUM 132 MMOL/L (135-145); eGFR 54 ML/MIN
[2022-02-27 11:50] LABS: TOTAL CARBON DIOXIDE 6.9 MMOL/L (24-32)
[2022-02-27] MEDS ORDERED: proMETHazine 25mg rectal suppository RC PRN (12:25)
--- NOTE | 2022-02-27 12:26 | NUR ---
ORDERS FOR PHENERGAN SUPPOSITORY PUT IN PER DR. العراقي.
[2022-02-27 13:31] LABS: ANION GAP 24 (8-16); BLOOD UREA NITROGEN 9 MG/DL (7-18); BUN/CREATININE RATIO 7.6 (6.6-38.0); CALCIUM 8.4 MG/DL (8.5-10.1); CHLORIDE 102 MMOL/L (99-107); CREATININE 1.19 MG/DL (0.40-0.90); GLUCOSE 352 MG/DL (70-104); PHOSPHORUS 1.8 MG/DL (2.3-4.5); POTASSIUM 4.4 MMOL/L (3.5-5.1); SODIUM 134 MMOL/L (135-145); eGFR 53 ML/MIN
[2022-02-27 13:33] LABS: TOTAL CARBON DIOXIDE 7.8 MMOL/L (24-32)
--- NOTE | 2022-02-27 13:52 | NUR ---
Initial: Pt admit for DKA, BG 533 mg/dL on admit with A1c 9.5%. Pt seen at bedside for DM education however pt very passive and required a lot of prompting to answer questions, of which pt provided conflicting statements. Pt states she has T1DM and sees a physician "every once in awhile". Pt states she has difficulty getting and administering insulin, stating she runs out of her medications at times though is unable to specify why or for what length of time, and also states that she is able to admin rx just fine. Pt reports checking her blood sugar QD though unable to provide what her blood sugar usually is. RD offered to visit pt at another time once pt is feeling more up to discussing DM management however pt declined. Written DM education with RD contact information provided and pt encouraged to reach out if needed. Pt reports poor appetite since admit and denies food allergies, difficulty chewing/swallowing, or constipation/diarrhea. Pt NPO at this time. Will continue to follow closely. Recommendations: 1) Advance to CHO controlled diet as medically indicated 2) Routine bowel care 3) Weekly scaled weights 4) F/u verbal DM education as able if pt accepting Addendum: 02/27/22 at [address] Amended: Links added.
[2022-02-27] MEDS ORDERED: DEXTROSE 5% IV SCH (14:38)
[2022-02-27] MEDS ORDERED: SODIUM BICARBONATE IV SCH (14:38)
[2022-02-27] MEDS ORDERED: WATER IV SCH (14:38)
[2022-02-27] MEDS: vancomycin/NS 1 GM ADD-VANTAGE 250 ML IV SCH (15:34)
[2022-02-27 17:31] LABS: ALBUMIN 3.8 G/DL (3.4-5.0); ANION GAP 21 (8-16); BLOOD UREA NITROGEN 8 MG/DL (7-18); BUN/CREATININE RATIO 6.9 (6.6-38.0); CALCIUM 8.2 MG/DL (8.5-10.1); CHLORIDE 103 MMOL/L (99-107); CREATININE 1.16 MG/DL (0.40-0.90); GLUCOSE 275 MG/DL (70-104); PHOSPHORUS 1.3 MG/DL (2.3-4.5); POTASSIUM 4.3 MMOL/L (3.5-5.1); SODIUM 135 MMOL/L (135-145); eGFR 54 ML/MIN
[2022-02-27 17:34] LABS: TOTAL CARBON DIOXIDE 10.6 MMOL/L (24-32)
[2022-02-27 18:00] VITALS: BP 169/89
[2022-02-27] MEDS: topiramate 25mg tablet PO SCH (21:00)
[2022-02-27 22:00] VITALS: BP 156/78
[2022-02-28] MEDS: normal saline 1000ml 1,000 ML IV SCH ×7 (00:20→20:20)
[2022-02-28 02:00] VITALS: BP 152/76
[2022-02-28] MEDS: dextrose 5%-1/2 normal saline 1,000 ML IV SCH ×2 (02:03→15:50)
[2022-02-28] MEDS: vancomycin/NS 1 GM ADD-VANTAGE 250 ML IV SCH ×2 (04:45→16:00)
[2022-02-28 06:00] VITALS: BP 170/98
[2022-02-28 06:36] LABS: BASOPHILS % (AUTO) 0.2 % (0-1); EOSINOPHILS % (AUTO) 0 % (0-6); HEMOGLOBIN 13.8 g/dl (12.0-16.0); LYMPHOCYTES # (AUTO) 1.1 X10'3 (1.1-4.8); LYMPHOCYTES % (AUTO) 6.2 % (21-51); MEAN CORPUSCULAR HEMOGLOBIN 29.6 PG (27.0-31.0); MEAN CORPUSCULAR HGB CONC 35.3 g/dL (33.0-36.5); MEAN CORPUSCULAR VOLUME 83.9 FL (78-98); MEAN PLATELET VOLUME 7.9 FL (7.4-10.4); NEUTROPHILS # (AUTO) 15.3 X10'3 (1.8-7.7); NEUTROPHILS % (AUTO) 87.6 % (42-75); PLATELET COUNT 255 X10'3 (140-440); RED BLOOD COUNT 4.64 X10'6 (4.20-5.60); WHITE BLOOD COUNT 17.4 X10'3 (4.5-11.0)
[2022-02-28 07:01] LABS: ALANINE AMINOTRANSFERASE 31 U/L (12-78); ALBUMIN 3.7 G/DL (3.4-5.0); ALBUMIN/GLOBULIN RATIO 1.1 (1.1-1.5); ALKALINE PHOSPHATASE 109 IU/L (46-116); ANION GAP 17 (8-16); ASPARTATE AMINO TRANSFERASE 12 U/L (10-37); BILIRUBIN,TOTAL 0.3 MG/DL (0.1-1.0); BLOOD UREA NITROGEN 6 MG/DL (7-18); BUN/CREATININE RATIO 6.5 (6.6-38.0); CALCIUM 8.3 MG/DL (8.5-10.1); CHLORIDE 107 MMOL/L (99-107); CREATININE 0.93 MG/DL (0.40-0.90); GLUCOSE 243 MG/DL (70-104); MAGNESIUM 1.9 MG/DL (1.5-2.4); POTASSIUM 3.5 MMOL/L (3.5-5.1); SODIUM 139 MMOL/L (135-145); TOTAL PROTEIN 7.1 G/DL (6.4-8.2); eGFR 70 ML/MIN
[2022-02-28 07:04] LABS: PHOSPHORUS 0.8 MG/DL (2.3-4.5); TOTAL CARBON DIOXIDE 14.7 MMOL/L (24-32)
--- NOTE | 2022-02-28 07:35 | NUR ---
PAGER ID: [phone] Dr Ny MESSAGE: [id number], Lisa, crit labs, CO2 14.7, phos 0.8, phos replace ordered. Bhavya, [id number], TY
[2022-02-28] MEDS: heparin, porcine 5000 units/ml vial SQ SCH ×3 (08:00→20:00)
[2022-02-28] MEDS: oxcarbazepine 150mg tablet PO SCH ×2 (08:00→21:00)
[2022-02-28] MEDS: levoTHYROXINE 88mcg tablet PO SCH (08:00)
[2022-02-28] MEDS: docusate sod 100mg capsule PO SCH ×2 (08:00→20:00)
[2022-02-28] MEDS: atorvastatin 20mg tablet PO SCH (08:00)
[2022-02-28] MEDS: duloxetine 30mg CAPSULE.DR PO SCH (08:00)
[2022-02-28] MEDS: K and/or MAG REPLACEMENT MC SCH ×3 (08:00→20:00)
[2022-02-28] MEDS: Insulin Reg/NS 100units/100mL 100 ML IV SCH ×2 (08:27→20:32)
[2022-02-28] MEDS: metoclopramide 5 mg/ml inj IV PRN (08:40)
[2022-02-28 11:00] VITALS: BP 160/89
[2022-02-28] MEDS: fluconazole-Diflucan 100MG/NS 50 ML IV SCH (11:37)
[2022-02-28 12:06] LABS: ALANINE AMINOTRANSFERASE 29 U/L (12-78); ALBUMIN 3.5 G/DL (3.4-5.0); ALBUMIN/GLOBULIN RATIO 1.1 (1.1-1.5); ALKALINE PHOSPHATASE 106 IU/L (46-116); ANION GAP 16 (8-16); ASPARTATE AMINO TRANSFERASE 15 U/L (10-37); BILIRUBIN,TOTAL 0.3 MG/DL (0.1-1.0); BLOOD UREA NITROGEN 6 MG/DL (7-18); BUN/CREATININE RATIO 6.2 (6.6-38.0); CALCIUM 8.2 MG/DL (8.5-10.1); CHLORIDE 105 MMOL/L (99-107); CREATININE 0.97 MG/DL (0.40-0.90); GLUCOSE 392 MG/DL (70-104); POTASSIUM 3.4 MMOL/L (3.5-5.1); SODIUM 136 MMOL/L (135-145); TOTAL PROTEIN 6.8 G/DL (6.4-8.2); eGFR 67 ML/MIN
--- NOTE | 2022-02-28 12:15 | NUR ---
PAGER ID: [phone] MESSAGE: [id number], tiburcio Gonzalez CO2 15. increasing:) Bhavya Wilcox [phone]
[2022-02-28] MEDS: potassium CL 10mEq/100ml bag 100 ML IV PRN ×7 (13:29→23:51)
[2022-02-28 15:12] VITALS: BP 173/85
[2022-02-28] MEDS: metoclopramide 5 mg/ml inj IV SCH ×2 (15:15→21:23)
[2022-02-28] MEDS: mag hydrox/Alum hydrox/simeth 30ml oral suspension PO PRN ×3 (15:20→21:18)
[2022-02-28] MEDS ORDERED: VANCOMYCIN LEVEL IV ONE (15:30)
--- NOTE | 2022-02-28 15:32 | NUR ---
PAGER ID: [phone] Dr Ny MESSAGE: [id number], Lisa, please call, Bhavya hayden [phone] Addendum: 02/28/22 at 1545 by Bhavya Hummel RN Dr Ny called back, this RN updated Dr Ny that pt only has 1 IV at this time, unable to run all of her medications, including Na Phos, antibiotics, potassium. Dr Ny stated that he is only concerned with insulin and the IV fluids at this time, and the other medications can be on hold until she is out of DKA. Repeated back to Dr Ny to verify that the insulin and IVF are priority and other medications can be held, and he agreed.
[2022-02-28 16:16] LABS: ALBUMIN 3.4 G/DL (3.4-5.0); ANION GAP 12 (8-16); BLOOD UREA NITROGEN 5 MG/DL (7-18); BUN/CREATININE RATIO 5.7 (6.6-38.0); CALCIUM 8.1 MG/DL (8.5-10.1); CHLORIDE 107 MMOL/L (99-107); CREATININE 0.87 MG/DL (0.40-0.90); GLUCOSE 185 MG/DL (70-104); SODIUM 139 MMOL/L (135-145); TOTAL CARBON DIOXIDE 19.7 MMOL/L (24-32); VANCOMYCIN,TROUGH 8.5 UG/ML (6.0-14.0); eGFR 76 ML/MIN
[2022-02-28 16:30] LABS: PHOSPHORUS 0.9 MG/DL (2.3-4.5); POTASSIUM 2.7 MMOL/L (3.5-5.1)
--- NOTE | 2022-02-28 16:39 | NUR ---
PAGER ID: [phone] Anshul Ny MESSAGE: [id number], tiburcio Gonzalez K 2.7, getting replaced IV, Phos 0.9, can't replace w/o new GAIL, Bhavya Gaxiola [phone] Addendum: 02/28/22 at 1704 by Bhavya Hummel RN unable to hang na phos due to incompatibility with insulin, IV fluids and KCL. dr Ny aware.
--- NOTE | 2022-02-28 17:22 | NUR ---
Pt tolerating ice chips and maalox. will advance to clear liquids, will continue to monitor
--- NOTE | 2022-02-28 17:46 | NUR ---
vancomycin IV held, incompatible with D51/[address] Ny aware
--- NOTE | 2022-02-28 17:49 | NUR ---
Pt has received 30 meq KCL , 3 x 10meq infusions, so far. Next BMP scheduled for 1999. Have been unable to replace phos, due to IV incompatibility, Dr Ny aware.
--- NOTE | 2022-02-28 18:30 | NUR ---
Problems reprioritized. Patient report given, questions answered & plan of care reviewed with VIOLETTE Blas.
[2022-02-28] MEDS: Neutra Phos packet PO PRN ×2 (19:01→21:23)
[2022-02-28 20:28] LABS: ALBUMIN 3.3 G/DL (3.4-5.0); ANION GAP 16 (8-16); BLOOD UREA NITROGEN 4 MG/DL (7-18); BUN/CREATININE RATIO 4.6 (6.6-38.0); CALCIUM 8.5 MG/DL (8.5-10.1); CHLORIDE 104 MMOL/L (99-107); CREATININE 0.87 MG/DL (0.40-0.90); GLUCOSE 237 MG/DL (70-104); POTASSIUM 3.3 MMOL/L (3.5-5.1); SODIUM 138 MMOL/L (135-145); TOTAL CARBON DIOXIDE 18.2 MMOL/L (24-32); eGFR 76 ML/MIN
[2022-02-28] MEDS: insulin glargine (Lantus) pen - multi-dose SQ SCH (21:00)
[2022-02-28] MEDS: topiramate 25mg tablet PO SCH (21:00)
[2022-02-28 22:00] VITALS: BP 157/89
[2022-03-01] MEDS: normal saline 1000ml 1,000 ML IV SCH ×6 (00:20→20:20)
--- NOTE | 2022-03-01 01:44 | NUR ---
PAGER ID: [phone] MESSAGE: [id number] Lora, Kalyn Gonzalez, DKA, insulin drip, 2100 BG 205, 2200 BG 189, 2300 BG 170, 0000 BG 128, 0100 BG 117, Insulin infusing @ 7 units, D5 NS infusing at 50 ml/hour. Would you like to change the drip rates? Thank You, Wan Winkler RN (228 character message out of a maximum of 240) Dr ordered a change to the insulin infusion rate from 7 units/hour to 5 units per hour.
[2022-03-01 02:00] VITALS: BP 158/91
[2022-03-01] MEDS: potassium CL 10mEq/100ml bag 100 ML IV PRN (02:00)
[2022-03-01] MEDS: mag hydrox/Alum hydrox/simeth 30ml oral suspension PO PRN ×2 (02:13→16:57)
[2022-03-01] MEDS: metoclopramide 5 mg/ml inj IV SCH ×4 (02:13→20:01)
[2022-03-01] MEDS: Neutra Phos packet PO PRN ×2 (02:13→08:47)
[2022-03-01] MEDS: dextrose 5%-1/2 normal saline 1,000 ML IV SCH (04:41)
[2022-03-01] MEDS: vancomycin/NS 1 GM ADD-VANTAGE 250 ML IV SCH (05:08)
[2022-03-01 06:00] VITALS: BP 135/80
[2022-03-01] MEDS: docusate sod 100mg capsule PO SCH ×2 (08:00→20:03)
[2022-03-01] MEDS: K and/or MAG REPLACEMENT MC SCH ×2 (08:00→20:05)
[2022-03-01] MEDS: oxcarbazepine 150mg tablet PO SCH ×3 (08:01→20:02)
[2022-03-01] MEDS: heparin, porcine 5000 units/ml vial SQ SCH ×2 (08:03→20:01)
[2022-03-01] MEDS: levoTHYROXINE 88mcg tablet PO SCH ×2 (08:03→08:16)
[2022-03-01] MEDS: atorvastatin 20mg tablet PO SCH ×2 (08:04→08:16)
[2022-03-01 08:13] LABS: BASOPHILS # (AUTO) 0.1 X10'3 (0-0.2); BASOPHILS % (AUTO) 0.5 % (0-1); EOSINOPHILS % (AUTO) 0 % (0-6); HEMATOCRIT 36.4 % (35.0-45.0); HEMOGLOBIN 12.9 g/dl (12.0-16.0); LYMPHOCYTES # (AUTO) 2.4 X10'3 (1.1-4.8); LYMPHOCYTES % (AUTO) 13.8 % (21-51); MEAN CORPUSCULAR HEMOGLOBIN 29.1 PG (27.0-31.0); MEAN CORPUSCULAR HGB CONC 35.5 g/dL (33.0-36.5); MEAN PLATELET VOLUME 8.2 FL (7.4-10.4); MONOCYTES # (AUTO) 1.5 X10'3 (0-0.9); MONOCYTES % (AUTO) 8.6 % (2-12); NEUTROPHILS # (AUTO) 13.4 X10'3 (1.8-7.7); NEUTROPHILS % (AUTO) 77.1 % (42-75); PLATELET COUNT 251 X10'3 (140-440); RED BLOOD COUNT 4.44 X10'6 (4.20-5.60); RED CELL DISTRIBUTION WIDTH 13.9 % (11.5-14.5); WHITE BLOOD COUNT 17.4 X10'3 (4.5-11.0)
[2022-03-01] MEDS: fluconazole-Diflucan 100MG/NS 50 ML IV SCH (08:18)
[2022-03-01] MEDS: duloxetine 30mg CAPSULE.DR PO SCH (08:19)
[2022-03-01 08:34] LABS: ALANINE AMINOTRANSFERASE 23 U/L (12-78); ALBUMIN 3.1 G/DL (3.4-5.0); ALKALINE PHOSPHATASE 97 IU/L (46-116); ANION GAP 10 (8-16); ASPARTATE AMINO TRANSFERASE 12 U/L (10-37); BILIRUBIN,TOTAL 0.3 MG/DL (0.1-1.0); BLOOD UREA NITROGEN 3 MG/DL (7-18); BUN/CREATININE RATIO 4.9 (6.6-38.0); CALCIUM 8.3 MG/DL (8.5-10.1); CHLORIDE 109 MMOL/L (99-107); CREATININE 0.61 MG/DL (0.40-0.90); GLUCOSE 142 MG/DL (70-104); MAGNESIUM 2.2 MG/DL (1.5-2.4); SODIUM 141 MMOL/L (135-145); TOTAL CARBON DIOXIDE 22.3 MMOL/L (24-32); TOTAL PROTEIN 6.2 G/DL (6.4-8.2); eGFR > 90 ML/MIN
[2022-03-01 08:39] LABS: PHOSPHORUS 0.7 MG/DL (2.3-4.5)
[2022-03-01] MEDS ORDERED: dextrose 50%-water 50ml dispensing syringe IV PRN ×2 (08:40)
[2022-03-01] MEDS ORDERED: MESSAGE TO PHARMACY PO ONE (08:40)
[2022-03-01] MEDS ORDERED: DEXTROSE 15 GM of carb/4 tabs (each vial/BOTTLE has 4 tablets) PO PRN ×2 (08:40)
[2022-03-01] MEDS ORDERED: glucagon, human recombinant 1mg kit SUBCUT PRN (08:40)
--- NOTE | 2022-03-01 08:40 | NUR ---
PAGER ID: [phone] MESSAGE: ELOISA ON TELE, I PLACED [id number] ON HYPERGLYCEMIC PROTOCAOL, LAB JUST CALLED WITH CRITICAL K @3.0 AND PHOS@ 0.7 WILL REPLACE BOTH.
[2022-03-01] MEDS ORDERED: sodium phosphate inj. 30 MMOL in dextrose 5%-water 250 ML IV ONE (09:35)
[2022-03-01] MEDS: insulin Lispro (HumaLOG) vial - multi-dose SQ SCH ×4 (09:45→22:19)
[2022-03-01] MEDS ORDERED: insulin glargine (Lantus) pen - multi-dose SQ ONE (09:50)
--- NOTE | 2022-03-01 11:04 | NUR ---
pt anio gap and CO2 levels WNL, Dr ordered post insulin drip insulin insulin and 20 units of Lantus, K was 3.0 and Phos was 0.7 protocol initiated, pt to discharge today
[2022-03-01 15:00] VITALS: BP 148/82
[2022-03-01] MEDS: potassium Cl 20 mEq SR tablet PO PRN ×2 (17:48→20:13)
[2022-03-01] MEDS: VANCOmycin 1250MG/NS 250ml Bag 250 ML IV SCH (17:57)
[2022-03-01 18:00] VITALS: BP 152/86
[2022-03-01] MEDS ORDERED: insulin glargine (Lantus) pen - multi-dose SQ SCH ×2 (20:00→21:00)
[2022-03-01] MEDS: topiramate 25mg tablet PO SCH (20:02)
[2022-03-01 22:00] VITALS: BP 137/89
[2022-03-01 22:33] LABS: ALANINE AMINOTRANSFERASE 24 U/L (12-78); ALBUMIN 3.1 G/DL (3.4-5.0); ALKALINE PHOSPHATASE 105 IU/L (46-116); ANION GAP 17 (8-16); ASPARTATE AMINO TRANSFERASE 13 U/L (10-37); BILIRUBIN,TOTAL 0.4 MG/DL (0.1-1.0); BLOOD UREA NITROGEN 5 MG/DL (7-18); BUN/CREATININE RATIO 8.1 (6.6-38.0); CALCIUM 8.6 MG/DL (8.5-10.1); CHLORIDE 99 MMOL/L (99-107); CREATININE 0.62 MG/DL (0.40-0.90); GLUCOSE 373 MG/DL (70-104); POTASSIUM 3.1 MMOL/L (3.5-5.1); SODIUM 138 MMOL/L (135-145); TOTAL CARBON DIOXIDE 21.6 MMOL/L (24-32); TOTAL PROTEIN 6.3 G/DL (6.4-8.2); eGFR > 90 ML/MIN
[2022-03-01 22:34] LABS: PHOSPHORUS 2.3 MG/DL (2.3-4.5)
[2022-03-02] MEDS: normal saline 1000ml 1,000 ML IV SCH ×2 (00:20→04:20)
[2022-03-02] MEDS: metoclopramide 5 mg/ml inj IV SCH (01:53)
[2022-03-02] MEDS: potassium Cl 20 mEq SR tablet PO PRN (01:53)
[2022-03-02 02:00] VITALS: BP 122/73
[2022-03-02] MEDS: VANCOmycin 1250MG/NS 250ml Bag 250 ML IV SCH (04:26)
[2022-03-02 06:00] VITALS: BP 119/75
[2022-03-02 06:41] LABS: BASOPHILS # (AUTO) 0.1 X10'3 (0-0.2); BASOPHILS % (AUTO) 0.8 % (0-1); EOSINOPHILS % (AUTO) 0 % (0-6); HEMATOCRIT 33.7 % (35.0-45.0); HEMOGLOBIN 11.9 g/dl (12.0-16.0); LYMPHOCYTES # (AUTO) 2.5 X10'3 (1.1-4.8); LYMPHOCYTES % (AUTO) 24.9 % (21-51); MEAN CORPUSCULAR HEMOGLOBIN 29.8 PG (27.0-31.0); MEAN CORPUSCULAR HGB CONC 35.4 g/dL (33.0-36.5); MEAN CORPUSCULAR VOLUME 84.1 FL (78-98); MEAN PLATELET VOLUME 8.1 FL (7.4-10.4); MONOCYTES # (AUTO) 0.8 X10'3 (0-0.9); MONOCYTES % (AUTO) 8.2 % (2-12); NEUTROPHILS # (AUTO) 6.7 X10'3 (1.8-7.7); NEUTROPHILS % (AUTO) 66.1 % (42-75); PLATELET COUNT 189 X10'3 (140-440); RED BLOOD COUNT 4.01 X10'6 (4.20-5.60); RED CELL DISTRIBUTION WIDTH 13.9 % (11.5-14.5); WHITE BLOOD COUNT 10.2 X10'3 (4.5-11.0)
[2022-03-02 06:47] LABS: ALANINE AMINOTRANSFERASE 21 U/L (12-78); ALBUMIN 2.5 G/DL (3.4-5.0); ALBUMIN/GLOBULIN RATIO 0.9 (1.1-1.5); ALKALINE PHOSPHATASE 82 IU/L (46-116); ANION GAP 5 (8-16); ASPARTATE AMINO TRANSFERASE 11 U/L (10-37); BILIRUBIN,TOTAL 0.4 MG/DL (0.1-1.0); BLOOD UREA NITROGEN 7 MG/DL (7-18); BUN/CREATININE RATIO 13.7 (6.6-38.0); CALCIUM 7.9 MG/DL (8.5-10.1); CHLORIDE 109 MMOL/L (99-107); CREATININE 0.51 MG/DL (0.40-0.90); GLUCOSE 239 MG/DL (70-104); MAGNESIUM 2.3 MG/DL (1.5-2.4); POTASSIUM 3.7 MMOL/L (3.5-5.1); SODIUM 136 MMOL/L (135-145); TOTAL CARBON DIOXIDE 22.5 MMOL/L (24-32); TOTAL PROTEIN 5.3 G/DL (6.4-8.2); eGFR > 90 ML/MIN
--- NOTE | 2022-03-02 09:22 | NUR ---
Patient stable for discharge per MD orders. All discharge instructions reviewed and questions answered appropriately. No new prescriptions. Belongings collected and sent with the patient. Patient will make follow up appointment with PCP. Diabetes survival skills sent with patient. cardiac monitor technician discontinued, PIV removed and cannula intact. Patient wheeled down to lobby and left via private vehicle.
[2022-03-03] MEDS ORDERED: VANCOMYCIN LEVEL IV ONE (03:30)
== END 2022-03-02 09:22 | disposition home or self-care (01) | DRG 420 ==
LOC: EDBD 18:34 → ER 18:36 → ED HOLD 22:59 → PCU 3S 02-26 15:04
PROVIDERS: ADMIT Internal Medicine; ATTEND Family Medicine
DX: E10.10 Type 1 diabetes mellitus with ketoacidosis without coma (principal); G93.40 Encephalopathy, unspecified; E83.39 Other disorders of phosphorus metabolism; E87.6 Hypokalemia; N39.0 Urinary tract infection, site not specified; F32.A Depression, unspecified; J45.909 Unspecified asthma, uncomplicated; Z79.899 Other long term (current) drug therapy; Z56.0 Unemployment, unspecified; Z88.2 Allergy status to sulfonamides; Z88.8 Allergy status to other drugs, medicaments and biological substances; Z91.040 Latex allergy status
CPT/HCPCS: 36415; 36600; 71045; 80048; 80053; 80061; 80202; 81001; 81025; 82803; 82948; 83036; 83605; 83735; 84100; 84145; 84443; 84484; 85018; 85025; 87040; 87077; 87081; 87088; 87186; 93005; 96361; 96365; 96366; 96376; 99285; A6258; G0378; J0780; J1450; J1644; J1815; J2405; J2765; J3370; J3480; J3490; J7030; J7042; J7060; J7121; Q0169

== ENCOUNTER 2022-05-26 10:39 | Inpatient (IN) | payer MEDICAID ==
[~2022-05-26] VITALS: Ht 144.8 cm; Wt 74.1 kg
[~2022-05-26 10:39] MED LIST changes: +ESOM20CA PO; -MIRENA VG; -NAPR-996 PO; -RISP0.5T65 PO; +TOPI25TA49 PO; -TOPI50TA24 PO
[2022-05-26] MEDS ORDERED: normal saline 1000ML IV soln IV ONE (10:55)
[2022-05-26] MEDS ORDERED: pantoprazole 40mg IV 80 MG in normal saline 100ml IV soln 100 ML IV ONE (11:15)
[2022-05-26] MEDS ORDERED: ondansetron/PF 4mg/2ml inj IV ONE (11:20)
[2022-05-26] MEDS ORDERED: metoclopramide 5 mg/ml inj IV ONE (11:25)
[2022-05-26 11:35] LABS: URINE HCG NEGATIVE (NEG)
[2022-05-26 11:49] LABS: CLARITY,URINE SLIGHTLY CLOUDY (Clear); COLOR,URINE STRAW (Yellow); GLUCOSE, URINE >=1000 mg/dl (Neg); KETONES,URINE >=80 mg/dl (Neg); LEUKOCYTE ESTERASE ,URINE NEGATIVE (Neg); NITRITES, URINE NEGATIVE (Neg); OCCULT BLOOD,URINE TRACE-INTACT (Neg); PH,URINE 5.5 (4.8-8.0); PROTEIN,URINE NEGATIVE (Neg); UROBILINOGEN,URINE 0.2 E.U/dL (0.2-1.0)
[2022-05-26 12:11] LABS: SQUAMOUS EPITHELIAL CELL,UR FEW /LPF (FEW)
[2022-05-26 12:14] LABS: BACTERIA,URINE FEW /HPF (Neg); MUCUS STRANDS NONE SEEN /LPF (Neg)
[2022-05-26 12:15] LABS: RBC,URINE 0-2 /HPF (0-2); WBC,URINE 0-4 /HPF (0-4)
[2022-05-26 12:20] LABS: UA COLLECTION TYPE FOLEY CATH; YEAST MODERATE /HPF (NEGATIVE)
--- NOTE | 2022-05-26 12:44 | NUR ---
MD SUERO made aware of blood sugar still reading "HI" on scale after 2L of NS. No new orders at this time
[2022-05-26] MEDS ORDERED: normal saline 1000ml 1,000 ML IV ONE ×2 (12:50)
[2022-05-26 12:52] LABS: BASOPHILS # (AUTO) 0.2 X10'3 (0-0.2); BASOPHILS % (AUTO) 0.6 % (0-1); EOSINOPHILS % (AUTO) 0 % (0-6); LYMPHOCYTES # (AUTO) 2.8 X10'3 (1.1-4.8); LYMPHOCYTES % (AUTO) 8.4 % (21-51); MEAN PLATELET VOLUME 9.5 FL (7.4-10.4); MONOCYTES # (AUTO) 2.2 X10'3 (0-0.9); MONOCYTES % (AUTO) 6.8 % (2-12); NEUTROPHILS # (AUTO) 27.8 X10'3 (1.8-7.7); NEUTROPHILS % (AUTO) 84.2 % (42-75); PLATELET COUNT 389 X10'3 (140-440); RED CELL DISTRIBUTION WIDTH 14.9 % (11.5-14.5)
[2022-05-26 13:11] LABS: HEMATOCRIT 34.7 % (35.0-45.0); HEMOGLOBIN 12.1 g/dl (12.0-16.0); MEAN CORPUSCULAR HEMOGLOBIN 29.5 PG (27.0-31.0); MEAN CORPUSCULAR HGB CONC 34.7 g/dL (33.0-36.5); RED BLOOD COUNT 4.09 X10'6 (4.20-5.60)
[2022-05-26 13:15] LABS: PLATELET ESTIMATE NORMAL; TOTAL CELLS COUNTED 100
[2022-05-26 13:21] LABS: ALANINE AMINOTRANSFERASE 61 U/L (12-78); ALBUMIN 3.3 G/DL (3.4-5.0); ALKALINE PHOSPHATASE 125 IU/L (46-116); ASPARTATE AMINO TRANSFERASE 26 U/L (10-37); BILIRUBIN,TOTAL 0.5 MG/DL (0.1-1.0); BLOOD UREA NITROGEN 47 MG/DL (7-18); BUN/CREATININE RATIO 25.4 (6.6-38.0); CALCIUM 8.7 MG/DL (8.5-10.1); CHLORIDE 90 MMOL/L (99-107); CREATININE 1.85 MG/DL (0.40-0.90); LIPASE 166 U/L (73-393); MAGNESIUM 2.6 MG/DL (1.5-2.4); SODIUM 127 MMOL/L (135-145); TOTAL PROTEIN 6.5 G/DL (6.4-8.2); eGFR 32 ML/MIN
[2022-05-26] MEDS ORDERED: sodium bicarbonate (8.4%) inj. 1 MEQ/ML ML IV ONE (13:30)
[2022-05-26] MEDS: Insulin Reg/NS 100units/100mL 100 ML IV PRN ×2 (13:30→21:41)
[2022-05-26] MEDS ORDERED: levoFLOXACIN-Levaquin 500mg/D5 100 ML IV ONE (13:30)
[2022-05-26 13:44] LABS: ANION GAP 32 (8-16)
[2022-05-26 13:52] LABS: GLUCOSE 975 MG/DL (70-104)
[2022-05-26 13:53] LABS: POTASSIUM 6.8 MMOL/L (3.5-5.1)
[2022-05-26 13:54] LABS: TOTAL CARBON DIOXIDE < 5 MMOL/L (24-32)
[2022-05-26] MEDS ORDERED: PRAZ2CAP2 PO (15:22)
[2022-05-26] MEDS ORDERED: BREX3TAB PO (15:22)
[2022-05-26] MEDS ORDERED: LAMO25TA72 PO (15:23)
[2022-05-26] MEDS ORDERED: HUMALOG INSULIN PUMP (15:25)
[2022-05-26] MEDS ORDERED: INSULIN PUMP (15:25)
--- NOTE | 2022-05-26 16:00 | NUR ---
MD SUERO made aware of need a bolus insulin order and pt's glucose reading still says "hi" x 2 after starting insulin drip and no results from lab reading yet. Pt MD SUERO pt should just be increased on her insulin drip not get a bolus. Per verbal per MD SUERO pt to be bumped up 50% on her insulin drip and will be moved to 10.5 units per hour.
[2022-05-26 16:25] LABS: GLUCOSE 817 MG/DL (70-104)
[2022-05-26 16:50] LABS: HEMOGLOBIN A1C 10.1 % (4.5-6.2)
[2022-05-26 17:26] VITALS: BP 133/43
[2022-05-26] MEDS ORDERED: normal saline 1000ml 1,000 ML IV SCH ×2 (17:40)
[2022-05-26 17:44] VITALS: BP 138/55
--- NOTE | 2022-05-26 17:46 | NUR ---
Pt. to room 2012 from ED via [facility] after receiving phone report from SATINDER RN. Pt. hooked up to bedside monitor and placing bed on ICU bed. Pt. asking for water. Wound noted to RFA. Photo taken. Pt. placed in isolation due to MRSA hx. and arm wound. Small BM noted upon arrival. Gertrudis hygiene provided. Foam prophylactic dressing applied to sacrum. MRSA swab obtained. Admission charting done. Dr. Francois at bedside to assess pt. BG "high" on glucometer.
[2022-05-26 17:55] VITALS: BP 109/49
[2022-05-26] MEDS: normal saline 1000ml 1,000 ML IV SCH ×6 (18:15→23:40)
[2022-05-26 19:00] VITALS: BP 130/57
[2022-05-26] MEDS ORDERED: potassium CL 20mEq in D5-1/2NS 1,000 ML IV PRN (20:00)
[2022-05-26] MEDS ORDERED: ondansetron/PF 4mg/2ml inj IV PRN (20:00)
[2022-05-26 21:00] VITALS: BP 145/68
[2022-05-26 22:44] LABS: ALBUMIN 3.1 G/DL (3.4-5.0); ANION GAP 21 (8-16); BLOOD UREA NITROGEN 35 MG/DL (7-18); BUN/CREATININE RATIO 23.6 (6.6-38.0); CALCIUM 8.1 MG/DL (8.5-10.1); CHLORIDE 112 MMOL/L (99-107); CREATININE 1.48 MG/DL (0.40-0.90); GLUCOSE 428 MG/DL (70-104); PHOSPHORUS 2.7 MG/DL (2.3-4.5); POTASSIUM 4.6 MMOL/L (3.5-5.1); SODIUM 143 MMOL/L (135-145); eGFR 41 ML/MIN
[2022-05-26 22:50] LABS: TOTAL CARBON DIOXIDE 10.2 MMOL/L (24-32)
[2022-05-26 23:00] VITALS: BP 126/59
[2022-05-27] VITALS (17 sets, daily range): BP systolic 105–156; BP diastolic 57–83
[2022-05-27] MEDS: normal saline 1000ml 1,000 ML IV SCH ×10 (01:40→15:26)
[2022-05-27 03:22] LABS: BASOPHILS % (AUTO) 0.3 % (0-1); EOSINOPHILS % (AUTO) 0 % (0-6); HEMATOCRIT 30.9 % (35.0-45.0); HEMOGLOBIN 10.3 g/dl (12.0-16.0); LYMPHOCYTES # (AUTO) 1.4 X10'3 (1.1-4.8); LYMPHOCYTES % (AUTO) 7.9 % (21-51); MEAN CORPUSCULAR HEMOGLOBIN 28.7 PG (27.0-31.0); MEAN CORPUSCULAR HGB CONC 33.4 g/dL (33.0-36.5); MEAN PLATELET VOLUME 8.1 FL (7.4-10.4); MONOCYTES # (AUTO) 1.7 X10'3 (0-0.9); MONOCYTES % (AUTO) 9.8 % (2-12); NEUTROPHILS # (AUTO) 14.7 X10'3 (1.8-7.7); PLATELET COUNT 235 X10'3 (140-440); RED BLOOD COUNT 3.59 X10'6 (4.20-5.60); RED CELL DISTRIBUTION WIDTH 13.5 % (11.5-14.5); WHITE BLOOD COUNT 17.9 X10'3 (4.5-11.0)
[2022-05-27 03:38] LABS: ALANINE AMINOTRANSFERASE 49 U/L (12-78); ALBUMIN 2.8 G/DL (3.4-5.0); ALKALINE PHOSPHATASE 78 IU/L (46-116); ANION GAP 12 (8-16); ASPARTATE AMINO TRANSFERASE 23 U/L (10-37); BILIRUBIN,TOTAL 0.3 MG/DL (0.1-1.0); BLOOD UREA NITROGEN 25 MG/DL (7-18); CALCIUM 7.9 MG/DL (8.5-10.1); CHLORIDE 117 MMOL/L (99-107); CREATININE 1.19 MG/DL (0.40-0.90); GLUCOSE 236 MG/DL (70-104); MAGNESIUM 1.7 MG/DL (1.5-2.4); PHOSPHORUS 1.4 MG/DL (2.3-4.5); POTASSIUM 3.8 MMOL/L (3.5-5.1); SODIUM 146 MMOL/L (135-145); TOTAL CARBON DIOXIDE 16.7 MMOL/L (24-32); TOTAL PROTEIN 5.6 G/DL (6.4-8.2); eGFR 53 ML/MIN
[2022-05-27] MEDS: Insulin Reg/NS 100units/100mL 100 ML IV PRN ×3 (04:44→09:05)
[2022-05-27] MEDS ORDERED: insulin glargine (Lantus) pen - multi-dose SQ ONE (08:25)
[2022-05-27] MEDS ORDERED: potassium phosphate inj 15 MMOL in normal saline 250ml IV soln 250 ML IV ONE (08:30)
[2022-05-27 09:16] LABS: ALBUMIN 2.7 G/DL (3.4-5.0); ANION GAP 7 (8-16); BLOOD UREA NITROGEN 19 MG/DL (7-18); BUN/CREATININE RATIO 19.6 (6.6-38.0); CALCIUM 8.6 MG/DL (8.5-10.1); CREATININE 0.97 MG/DL (0.40-0.90); GLUCOSE 164 MG/DL (70-104); POTASSIUM 3.8 MMOL/L (3.5-5.1); SODIUM 142 MMOL/L (135-145); TOTAL CARBON DIOXIDE 19.1 MMOL/L (24-32); eGFR 67 ML/MIN
[2022-05-27 09:42] LABS: CHLORIDE 116 MMOL/L (99-107)
[2022-05-27] MEDS ORDERED: metoclopramide 5 mg/ml inj IV PRN (10:45)
--- NOTE | 2022-05-27 11:02 | NUR ---
DM/malnutrition consults: Per EMR pt with DM with an insulin pump, current A1c 10.1% (up from 9.5% 02/26), with BG range 130-975 mg/dL throughout LOS. Noted A1c consistently ranges 8.9-10.9% since 2010 per EMR. Per physician notes pt with insulin pump malfunction however per bedside RN at [facility] pt just lets the pump run dry and doesn't refill it. RN inquired with CM regarding changing pt to manual insulin rather than a pump as this reportedly happens often. Pt currently moaning and groaning at bedside with c/o nausea, DM education not appropriate at this time. Per malnutrition risk screen with RN pt unsure of wt loss though with decreased appetite. Unable to interview pt at this time but no visible fat or muscle wasting was appreciate during bedside visit. Current documented wt is stable with documented wt hx in EMR. Pt with no documented significant decrease in muscle strength or edema. Pt currently lacks a minimum of two criteria for malnutrition. Pt having a BM during CCR. Wound care has been consulted for wound to right forearm. Will continue to follow. Recommendations: 1) Continue CHO controlled diet 2) Bowel care PRN 3) Scaled weight this admit; subsequent weekly scaled weights 4) DM education once appropriate; A1c 10.1% c/ an insulin pump Addendum: 05/27/22 at [address] Amended: Links added.
[2022-05-27] MEDS ORDERED: metoclopramide 5 mg/ml inj IV SCH (11:11)
[2022-05-27] MEDS: metoclopramide 5 mg/ml inj IV SCH ×2 (12:30→19:53)
[2022-05-27] MEDS ORDERED: MESSAGE TO PHARMACY PO ONE (13:10)
[2022-05-27] MEDS ORDERED: dextrose 50%-water 50ml dispensing syringe IV PRN ×2 (13:10)
[2022-05-27] MEDS ORDERED: DEXTROSE 15 GM of carb/4 tabs (each vial/BOTTLE has 4 tablets) PO PRN ×2 (13:10)
[2022-05-27] MEDS ORDERED: glucagon, human recombinant 1mg kit SUBCUT PRN (13:10)
[2022-05-27] MEDS: insulin Lispro (HumaLOG) vial - multi-dose SQ SCH ×3 (14:30→19:55)
[2022-05-27] MEDS: levoFLOXACIN-Levaquin 500mg/D5 100 ML IV SCH (14:31)
[2022-05-27 15:49] LABS: ALBUMIN 2.7 G/DL (3.4-5.0); ANION GAP 16 (8-16); BLOOD UREA NITROGEN 13 MG/DL (7-18); BUN/CREATININE RATIO 13.7 (6.6-38.0); CALCIUM 8.4 MG/DL (8.5-10.1); CHLORIDE 109 MMOL/L (99-107); CREATININE 0.95 MG/DL (0.40-0.90); GLUCOSE 320 MG/DL (70-104); POTASSIUM 3.9 MMOL/L (3.5-5.1); SODIUM 140 MMOL/L (135-145); TOTAL CARBON DIOXIDE 15.2 MMOL/L (24-32); eGFR 68 ML/MIN
[2022-05-27] MEDS ORDERED: insulin Lispro (HumaLOG) vial - multi-dose SQ ONE (17:45)
[2022-05-27] MEDS ORDERED: insulin Lispro (HumaLOG) vial - multi-dose SQ SCH (17:45)
--- NOTE | 2022-05-27 17:55 | NUR ---
Transfer orders placed. WCTM. Family came to bedside today and was updated. Neuro: Lethargic with delayed responses. Per family, this is pts BL. AAOx3 Cardiac:ST, normotensive. Kphos given for Phos of 1.7 Resp:RA t/o shift GI/:Gap closed. given lantus ~0930. Insulin gtt and fluids stopped ~1230. Pt ate lunch and dinner. Was covered SQ. Had several formed BM's. Phuong in place with great UOP. Skin:Blister on R FA seen by wound team. Flaky and dry.
[2022-05-27] MEDS: pantoprazole 40mg Tablet.DR PO SCH (19:53)
[2022-05-27] MEDS: insulin glargine (Lantus) pen - multi-dose SQ SCH (21:07)
[2022-05-28] MEDS: metoclopramide 5 mg/ml inj IV SCH ×4 (01:06→19:02)
[2022-05-28] MEDS: heparin, porcine 5000 units/ml vial SQ SCH ×3 (01:07→15:31)
[2022-05-28 02:47] VITALS: BP 129/75
[2022-05-28 06:00] VITALS: BP 169/89
[2022-05-28 06:23] LABS: BASOPHILS # (AUTO) 0.1 X10'3 (0-0.2); BASOPHILS % (AUTO) 0.5 % (0-1); EOSINOPHILS % (AUTO) 0 % (0-6); HEMATOCRIT 35.1 % (35.0-45.0); HEMOGLOBIN 11.9 g/dl (12.0-16.0); LYMPHOCYTES # (AUTO) 1.9 X10'3 (1.1-4.8); LYMPHOCYTES % (AUTO) 18.5 % (21-51); MEAN CORPUSCULAR HEMOGLOBIN 29.2 PG (27.0-31.0); MEAN CORPUSCULAR HGB CONC 33.8 g/dL (33.0-36.5); MEAN CORPUSCULAR VOLUME 86.3 FL (78-98); MEAN PLATELET VOLUME 7.8 FL (7.4-10.4); MONOCYTES # (AUTO) 0.6 X10'3 (0-0.9); MONOCYTES % (AUTO) 6.4 % (2-12); NEUTROPHILS # (AUTO) 7.5 X10'3 (1.8-7.7); NEUTROPHILS % (AUTO) 74.6 % (42-75); PLATELET COUNT 217 X10'3 (140-440); RED BLOOD COUNT 4.07 X10'6 (4.20-5.60); RED CELL DISTRIBUTION WIDTH 13.7 % (11.5-14.5); WHITE BLOOD COUNT 10.1 X10'3 (4.5-11.0)
[2022-05-28 06:44] LABS: ANION GAP 15 (8-16); BLOOD UREA NITROGEN 11 MG/DL (7-18); CALCIUM 8.8 MG/DL (8.5-10.1); CHLORIDE 105 MMOL/L (99-107); CREATININE 0.92 MG/DL (0.40-0.90); GLUCOSE 417 MG/DL (70-104); MAGNESIUM 1.6 MG/DL (1.5-2.4); POTASSIUM 4.1 MMOL/L (3.5-5.1); SODIUM 138 MMOL/L (135-145); TOTAL CARBON DIOXIDE 18.1 MMOL/L (24-32); eGFR 71 ML/MIN
[2022-05-28 06:45] LABS: ALANINE AMINOTRANSFERASE 34 U/L (12-78); ALBUMIN 2.8 G/DL (3.4-5.0); ALBUMIN/GLOBULIN RATIO 0.9 (1.1-1.5); ALKALINE PHOSPHATASE 81 IU/L (46-116); ASPARTATE AMINO TRANSFERASE 20 U/L (10-37); BILIRUBIN,TOTAL 0.4 MG/DL (0.1-1.0); TOTAL PROTEIN 5.9 G/DL (6.4-8.2)
[2022-05-28] MEDS: pantoprazole 40mg Tablet.DR PO SCH (08:19)
[2022-05-28] MEDS: cloNIDine 0.1 mg tablet PO SCH (08:50)
[2022-05-28] MEDS: levoTHYROXINE 88mcg tablet PO SCH (08:50)
--- NOTE | 2022-05-28 09:22 | NUR ---
Provided pt w/ written and verbal DM ed w/ RD contact info Addendum: 05/28/22 at [address] Amended: Links added.
[2022-05-28] MEDS: insulin Lispro (HumaLOG) vial - multi-dose SQ SCH ×3 (10:06→18:57)
[2022-05-28] MEDS: levoFLOXACIN-Levaquin 500mg/D5 100 ML IV SCH (14:00)
[2022-05-28 15:00] VITALS: BP 114/60
[2022-05-28 15:46] LABS: URINE AMPHETAMINE SCREEN NEGATIVE (Neg); URINE BARBITUATE SCREEN NEGATIVE (Neg); URINE BENZODIAZEPINES SCREEN NEGATIVE (Neg); URINE CANNABINOID SCREEN POSITIVE (Neg); URINE COCAINE SCREEN NEGATIVE (Neg); URINE METHADONE SCREEN NEGATIVE (Neg); URINE OPIATE SCREEN NEGATIVE (Neg); URINE PHENCYCLIDINE SCREEN NEGATIVE (Neg)
[2022-05-28 18:00] VITALS: BP 141/81
[2022-05-28] MEDS: oxcarbazepine 150mg tablet PO SCH (19:02)
[2022-05-28] MEDS: prazosin 1mg capsule PO SCH (20:20)
[2022-05-28] MEDS: topiramate 25mg tablet PO SCH (20:20)
[2022-05-28] MEDS: lamoTRIgine 25mg tablet PO SCH ×2 (20:49→20:50)
[2022-05-28] MEDS ORDERED: LAMOTRIGINE 25 MG PO SCH (21:00)
[2022-05-28] MEDS: insulin glargine (Lantus) pen - multi-dose SQ SCH (21:01)
[2022-05-28 22:55] VITALS: BP 112/68
[2022-05-29] MEDS: heparin, porcine 5000 units/ml vial SQ SCH ×4 (00:48→23:39)
[2022-05-29] MEDS: metoclopramide 5 mg/ml inj IV SCH ×4 (01:11→19:29)
[2022-05-29 03:12] VITALS: BP 114/73
--- NOTE | 2022-05-29 06:30 | NUR ---
Patient in room PCU 3021. I have received report from Javon OAKES and had the opportunity to ask questions and assume patient care. Will follow care of pt with Mina HELLER
--- NOTE | 2022-05-29 06:42 | NUR ---
Patient in room PCU 3021. I have received report from Javon OAKES and had the opportunity to ask questions and assume patient care. Bedside report given. Pt having vitals obtained at this time. Patient denies pain. Arouseable to verbal stimuli. Breathing even and unlabored on room air. Addendum: 05/29/22 at 0643 by Mina Mckeon LVN Amended: Links added.
[2022-05-29 06:58] LABS: BASOPHILS % (AUTO) 0.6 % (0-1); EOSINOPHILS % (AUTO) 0 % (0-6); HEMATOCRIT 32.5 % (35.0-45.0); HEMOGLOBIN 10.9 g/dl (12.0-16.0); LYMPHOCYTES # (AUTO) 1.7 X10'3 (1.1-4.8); MEAN CORPUSCULAR HEMOGLOBIN 29.1 PG (27.0-31.0); MEAN CORPUSCULAR HGB CONC 33.4 g/dL (33.0-36.5); MEAN PLATELET VOLUME 8.2 FL (7.4-10.4); MONOCYTES # (AUTO) 0.5 X10'3 (0-0.9); MONOCYTES % (AUTO) 10.4 % (2-12); NEUTROPHILS # (AUTO) 2.8 X10'3 (1.8-7.7); PLATELET COUNT 176 X10'3 (140-440); RED BLOOD COUNT 3.73 X10'6 (4.20-5.60); RED CELL DISTRIBUTION WIDTH 13.7 % (11.5-14.5); WHITE BLOOD COUNT 5.1 X10'3 (4.5-11.0)
[2022-05-29 07:09] LABS: ALANINE AMINOTRANSFERASE 36 U/L (12-78); ALBUMIN 2.6 G/DL (3.4-5.0); ALBUMIN/GLOBULIN RATIO 0.9 (1.1-1.5); ALKALINE PHOSPHATASE 72 IU/L (46-116); ANION GAP 13 (8-16); ASPARTATE AMINO TRANSFERASE 36 U/L (10-37); BILIRUBIN,TOTAL 0.3 MG/DL (0.1-1.0); BLOOD UREA NITROGEN 21 MG/DL (7-18); BUN/CREATININE RATIO 25.3 (6.6-38.0); CALCIUM 8.6 MG/DL (8.5-10.1); CHLORIDE 104 MMOL/L (99-107); CREATININE 0.83 MG/DL (0.40-0.90); MAGNESIUM 1.7 MG/DL (1.5-2.4); PHOSPHORUS 3.3 MG/DL (2.3-4.5); POTASSIUM 3.9 MMOL/L (3.5-5.1); SODIUM 136 MMOL/L (135-145); TOTAL CARBON DIOXIDE 18.8 MMOL/L (24-32); TOTAL PROTEIN 5.6 G/DL (6.4-8.2); eGFR 80 ML/MIN
[2022-05-29 07:14] LABS: GLUCOSE 450 MG/DL (70-104)
[2022-05-29] MEDS: levoTHYROXINE 88mcg tablet PO SCH (07:22)
[2022-05-29] MEDS: pantoprazole 40mg Tablet.DR PO SCH (07:22)
[2022-05-29 08:00] VITALS: BP 142/76
[2022-05-29] MEDS: duloxetine 30mg CAPSULE.DR PO SCH (08:05)
[2022-05-29] MEDS: cloNIDine 0.1 mg tablet PO SCH (08:06)
[2022-05-29] MEDS: atorvastatin 20mg tablet PO SCH (08:06)
[2022-05-29] MEDS: oxcarbazepine 150mg tablet PO SCH ×2 (08:07→19:29)
[2022-05-29] MEDS: insulin Lispro (HumaLOG) vial - multi-dose SQ SCH ×3 (08:33→18:43)
[2022-05-29 11:37] VITALS: BP 118/73
[2022-05-29] MEDS: levoFLOXACIN-Levaquin 500mg/D5 100 ML IV SCH (13:59)
[2022-05-29 15:28] VITALS: BP 116/69
--- NOTE | 2022-05-29 17:25 | NUR ---
Pt declined ambulation Addendum: 05/29/22 at 1725 by Mina Mckeon LVN Amended: Links added.
--- NOTE | 2022-05-29 17:57 | NUR ---
I have reviewed and agree with all interventions, assessments performed and documented by Mina HELLER. Addendum: 05/29/22 at 1757 by Aleida Gan RN Amended: Links added.
[2022-05-29 18:00] VITALS: BP 149/91
--- NOTE | 2022-05-29 18:14 | NUR ---
Problems reprioritized. Patient report given, questions answered & plan of care reviewed with Javon OAKES. All questions answered. Call light within reach. No distress noted. Bedside report given. Addendum: 05/29/22 at 1815 by Mina Mckeon LVN Amended: Links added.
[2022-05-29] MEDS: topiramate 25mg tablet PO SCH (20:10)
[2022-05-29] MEDS: lamoTRIgine 25mg tablet PO SCH (20:10)
[2022-05-29] MEDS: prazosin 1mg capsule PO SCH (20:10)
[2022-05-29] MEDS: insulin glargine (Lantus) pen - multi-dose SQ SCH (20:58)
[2022-05-29 22:29] VITALS: BP 116/72
[2022-05-30] MEDS: insulin Lispro (HumaLOG) vial - multi-dose SQ SCH ×3 (00:18→13:22)
[2022-05-30] MEDS: metoclopramide 5 mg/ml inj IV SCH ×2 (01:52→08:12)
[2022-05-30 01:55] VITALS: BP 142/91
--- NOTE | 2022-05-30 06:40 | NUR ---
Patient in room PCU 3021. I have received report from Javon OAKES and had the opportunity to ask questions and assume patient care. Bedside report given. Pt HOB Semi fowlers. Breathing even and unlabored on room air. No distress noted. Call light within reach. Addendum: 05/30/22 at 0641 by Mina Mckeon LVN Amended: Links added.
[2022-05-30 07:00] VITALS: BP 134/85
[2022-05-30 07:10] LABS: BASOPHILS % (AUTO) 0.6 % (0-1); EOSINOPHILS % (AUTO) 0 % (0-6); HEMATOCRIT 34.6 % (35.0-45.0); HEMOGLOBIN 11.8 g/dl (12.0-16.0); LYMPHOCYTES # (AUTO) 1.9 X10'3 (1.1-4.8); LYMPHOCYTES % (AUTO) 27.1 % (21-51); MEAN CORPUSCULAR HEMOGLOBIN 29.5 PG (27.0-31.0); MEAN CORPUSCULAR HGB CONC 34.2 g/dL (33.0-36.5); MEAN CORPUSCULAR VOLUME 86.3 FL (78-98); MEAN PLATELET VOLUME 8.1 FL (7.4-10.4); MONOCYTES # (AUTO) 0.5 X10'3 (0-0.9); MONOCYTES % (AUTO) 6.8 % (2-12); NEUTROPHILS # (AUTO) 4.7 X10'3 (1.8-7.7); NEUTROPHILS % (AUTO) 65.5 % (42-75); PLATELET COUNT 168 X10'3 (140-440); RED BLOOD COUNT 4.01 X10'6 (4.20-5.60); WHITE BLOOD COUNT 7.1 X10'3 (4.5-11.0)
[2022-05-30] MEDS: levoTHYROXINE 88mcg tablet PO SCH (07:22)
[2022-05-30] MEDS: pantoprazole 40mg Tablet.DR PO SCH (07:23)
[2022-05-30 07:31] LABS: ALANINE AMINOTRANSFERASE 37 U/L (12-78); ALBUMIN 2.9 G/DL (3.4-5.0); ALBUMIN/GLOBULIN RATIO 0.9 (1.1-1.5); ALKALINE PHOSPHATASE 83 IU/L (46-116); ANION GAP 17 (8-16); ASPARTATE AMINO TRANSFERASE 29 U/L (10-37); BILIRUBIN,TOTAL 0.6 MG/DL (0.1-1.0); BLOOD UREA NITROGEN 28 MG/DL (7-18); BUN/CREATININE RATIO 31.8 (6.6-38.0); CALCIUM 9.2 MG/DL (8.5-10.1); CHLORIDE 92 MMOL/L (99-107); CREATININE 0.88 MG/DL (0.40-0.90); MAGNESIUM 1.7 MG/DL (1.5-2.4); PHOSPHORUS 5.3 MG/DL (2.3-4.5); POTASSIUM 4.3 MMOL/L (3.5-5.1); SODIUM 128 MMOL/L (135-145); TOTAL CARBON DIOXIDE 18.6 MMOL/L (24-32); TOTAL PROTEIN 6.2 G/DL (6.4-8.2); eGFR 74 ML/MIN
--- NOTE | 2022-05-30 07:34 | NUR ---
Message paged to Dr. Lees. Message: [id number]- Kraft Pt has BGM over 600+ per bedside BG assessment. AM draw glucose unavailable. How would you like to proceed? Michelle Mckeon LVN
[2022-05-30 07:36] LABS: GLUCOSE 584 MG/DL (70-104)
[2022-05-30] MEDS: heparin, porcine 5000 units/ml vial SQ SCH (08:26)
[2022-05-30] MEDS: atorvastatin 20mg tablet PO SCH (08:26)
[2022-05-30] MEDS: duloxetine 30mg CAPSULE.DR PO SCH (08:27)
[2022-05-30] MEDS: oxcarbazepine 150mg tablet PO SCH (08:27)
[2022-05-30] MEDS: cloNIDine 0.1 mg tablet PO SCH (08:27)
[2022-05-30] MEDS ORDERED: LANTUS SQ (10:54)
[2022-05-30 11:00] VITALS: BP 103/67
--- NOTE | 2022-05-30 14:42 | NUR ---
Written and verbal discharge instructions provided, all questions answered. PIV discontinued. Reinforced to follow up with PCP within 1 week. Reviewed HGA1C;DKA;importance of managing DM;seeking automobile drivers as per Dr. Quinonez orders;stopping insulin pump; medications will be ready at [facility] pharamcy, mother and patient verbalized understanding. Pt will be staying with mother in [place] for a few days until patient is managed. Patient verbalized her first thing when she leaves the hospital is to work on getting better. pt left with mother in white truck at 1425hrs. Addendum: 05/30/22 at 1445 by Mina Mckeon LVN Amended: Links added.
== END 2022-05-30 14:51 | disposition home or self-care (01) | DRG 813 ==
LOC: ER 10:40 → ED HOLD 16:41 → CICU 2S 17:03 → PCU 3S 05-27 19:42
PROVIDERS: ADMIT Hospitalist; ATTEND Hospitalist
DX: T85.614A Breakdown (mechanical) of insulin pump, initial encounter (principal); E10.10 Type 1 diabetes mellitus with ketoacidosis without coma; D72.829 Elevated white blood cell count, unspecified; E03.9 Hypothyroidism, unspecified; E78.5 Hyperlipidemia, unspecified; F31.9 Bipolar disorder, unspecified; G40.909 Epilepsy, unspecified, not intractable, without status epilepticus; I10 Essential (primary) hypertension; E66.01 Morbid (severe) obesity due to excess calories; Z96.41 Presence of insulin pump (external) (internal); J45.909 Unspecified asthma, uncomplicated; Y74.2 Prosthetic and other implants, materials and accessory general hospital and personal-use devices associated with adverse incidents; Z79.4 Long term (current) use of insulin; Z79.899 Other long term (current) drug therapy; Z91.199 Patient's noncompliance with other medical treatment and regimen due to unspecified reason; Z56.0 Unemployment, unspecified; Z88.2 Allergy status to sulfonamides; Z88.8 Allergy status to other drugs, medicaments and biological substances; Z68.35 Body mass index [BMI] 35.0-35.9, adult; Z79.890 Hormone replacement therapy
CPT/HCPCS: 36415; 71045; 74018; 80048; 80053; 80305; 81001; 81025; 82800; 82948; 83036; 83605; 83690; 83735; 84100; 84145; 84443; 84484; 85007; 85025; 87040; 87081; 87088; 97116; 97161; 99285; C9113; G0378; J1644; J1815; J1956; J2405; J2765; J3480; J3490; J7030; J7040; J7050

== ENCOUNTER 2022-06-03 11:47 | Inpatient (IN) | payer MEDICAID ==
[2022-06-03] VITALS (8 sets, daily range): BP systolic 134–155; BP diastolic 58–77
[~2022-06-03] VITALS: Ht 144.8 cm; Wt 71.0 kg
[~2022-06-03 11:47] MED LIST changes: +BREX3TAB PO; -ESOM20CA PO; +LAMO25TA72 PO; +LANTUS SQ; -OXCA600T9 PO; +PRAZ2CAP2 PO
[2022-06-03] MEDS ORDERED: normal saline 1000ML IV soln IVB ONE ×2 (11:55→13:05)
[2022-06-03] MEDS ORDERED: insulin regular, human U-100 3ml vial - multi-dose IV ONE (11:55)
[2022-06-03] MEDS ORDERED: Insulin Reg/NS 100units/100mL 100 ML IV PRN (11:55)
[2022-06-03 12:17] LABS: BASOPHILS # (AUTO) 0.1 X10'3 (0-0.2); BASOPHILS % (AUTO) 0.5 % (0-1); EOSINOPHILS % (AUTO) 0 % (0-6); LYMPHOCYTES # (AUTO) 1.1 X10'3 (1.1-4.8); LYMPHOCYTES % (AUTO) 5.6 % (21-51); MEAN PLATELET VOLUME 9.4 FL (7.4-10.4); MONOCYTES # (AUTO) 0.4 X10'3 (0-0.9); MONOCYTES % (AUTO) 2.2 % (2-12); NEUTROPHILS # (AUTO) 18.1 X10'3 (1.8-7.7); NEUTROPHILS % (AUTO) 91.7 % (42-75); RED CELL DISTRIBUTION WIDTH 14.3 % (11.5-14.5); WHITE BLOOD COUNT 19.7 X10'3 (4.5-11.0)
[2022-06-03 12:38] LABS: ABG BASE EXCESS -26.6 mmol/L (-2.0-2.0); ABG HCO3 3.8 mmol/L (22.0-26.0); ABG OXYGEN SATURATION 84.5 % (94-97); ABG PCO2 (T) 17.4 mmHg (32.0-45.0); ABG PO2 (T) 71.1 mmHg (75.0-100.0); FCOHb 0.1 % (0.0-3.9); FMetHb 0.4 % (0.0-1.5); FO2Hb 84.1 % (94-97); TOTAL HEMOGLOBIN 12.6 G/dl (12.0-16.0)
[2022-06-03 12:39] LABS: HEMATOCRIT 35.1 % (35.0-45.0); HEMOGLOBIN 12.2 g/dl (12.0-16.0); MEAN CORPUSCULAR HEMOGLOBIN 29.1 PG (27.0-31.0); MEAN CORPUSCULAR HGB CONC 34.7 g/dL (33.0-36.5); MEAN CORPUSCULAR VOLUME 83.9 FL (78-98); PLATELET COUNT 302 X10'3 (140-440); RED BLOOD COUNT 4.18 X10'6 (4.20-5.60)
[2022-06-03 12:45] LABS: ALANINE AMINOTRANSFERASE 36 U/L (12-78); ALBUMIN 3.3 G/DL (3.4-5.0); ALBUMIN/GLOBULIN RATIO 0.9 (1.1-1.5); ALKALINE PHOSPHATASE 135 IU/L (46-116); ANION GAP 31 (8-16); ASPARTATE AMINO TRANSFERASE 28 U/L (10-37); BILIRUBIN,TOTAL 0.6 MG/DL (0.1-1.0); BLOOD UREA NITROGEN 49 MG/DL (7-18); BUN/CREATININE RATIO 28.7 (6.6-38.0); CALCIUM 8.5 MG/DL (8.5-10.1); CHLORIDE 78 MMOL/L (99-107); CREATININE 1.71 MG/DL (0.40-0.90); MAGNESIUM 2.7 MG/DL (1.5-2.4); TOTAL PROTEIN 6.9 G/DL (6.4-8.2); eGFR 35 ML/MIN
[2022-06-03 12:56] LABS: PHOSPHORUS 9.5 MG/DL (2.3-4.5)
[2022-06-03 13:08] LABS: GLUCOSE 1089 MG/DL (70-104); SODIUM 115 MMOL/L (135-145)
[2022-06-03 13:09] LABS: POTASSIUM 7.4 MMOL/L (3.5-5.1); TOTAL CARBON DIOXIDE 6.2 MMOL/L (24-32)
[2022-06-03] MEDS ORDERED: insulin regular, human 10 units/0.1 ml syringe IV ONE (13:15)
[2022-06-03 13:34] LABS: PLATELET ESTIMATE NORMAL; TOTAL CELLS COUNTED 100
[2022-06-03 13:35] LABS: GIANT PLATELET FEW
[2022-06-03] MEDS ORDERED: Neutra Phos packet PO PRN (14:35)
[2022-06-03] MEDS ORDERED: sodium bicarbonate (8.4%) inj. 100 MEQ in dextrose 5% water 500ml 500 ML IV PRN (14:35)
[2022-06-03] MEDS ORDERED: sodium bicarbonate (8.4%) inj. 50 MEQ in dextrose 5% water 500ml 250 ML IV PRN (14:35)
[2022-06-03] MEDS ORDERED: potassium Cl 20 mEq SR tablet PO PRN ×2 (14:35)
[2022-06-03] MEDS ORDERED: insulin regular, human U-100 3ml vial - multi-dose IV PRN (14:35)
[2022-06-03] MEDS ORDERED: potassium Cl 40MEQ/1/2NS 520ml 520 ML IV PRN ×2 (14:35)
[2022-06-03] MEDS ORDERED: sodium phosphate inj. 30 MMOL in dextrose 5%-water 250 ML IV PRN (14:35)
[2022-06-03] MEDS ORDERED: potassium CL 20mEq in D5-1/2NS 1,000 ML IV PRN ×2 (14:35→20:50)
[2022-06-03] MEDS ORDERED: magnesium hydroxide 30ml (MOM) UD suspension PO PRN (14:40)
[2022-06-03] MEDS ORDERED: LIDOcaine 2% 10ml TOPICAL JELLY (Urojet) TP ONE (14:40)
[2022-06-03] MEDS ORDERED: ondansetron/PF 4mg/2ml inj IV PRN (14:40)
[2022-06-03] MEDS ORDERED: POTASSIUM BICARB 20meq eff tab 20 MEQ TABLET.EFF PO PRN (14:40)
--- NOTE | 2022-06-03 14:56 | NUR ---
Delay in titrating insulin drip due to glucose reading > 600. lab draw done at 14:50
[2022-06-03] MEDS: normal saline 1000ml 1,000 ML IV SCH ×5 (15:02→22:35)
[2022-06-03 15:25] LABS: BLOOD UREA NITROGEN 44 MG/DL (7-18); BUN/CREATININE RATIO 28.4 (6.6-38.0); CALCIUM 7.4 MG/DL (8.5-10.1); CHLORIDE 91 MMOL/L (99-107); CREATININE 1.55 MG/DL (0.40-0.90); POTASSIUM 5.5 MMOL/L (3.5-5.1); SODIUM 124 MMOL/L (135-145); eGFR 39 ML/MIN
[2022-06-03 15:28] LABS: ANION GAP 26 (8-16)
[2022-06-03] MEDS ORDERED: INSU100V9 SQ (15:31)
[2022-06-03 15:36] LABS: TOTAL CARBON DIOXIDE 7.1 MMOL/L (24-32)
[2022-06-03 15:37] LABS: GLUCOSE 780 MG/DL (70-104)
[2022-06-03] MEDS ORDERED: heparin, porcine 5000 units/ml vial SQ SCH (16:00)
[2022-06-03 16:34] LABS: CLARITY,URINE SLIGHTLY CLOUDY (Clear); COLOR,URINE YELLOW (Yellow); GLUCOSE, URINE >=1000 mg/dl (Neg); KETONES,URINE >=80 mg/dl (Neg); LEUKOCYTE ESTERASE ,URINE NEGATIVE (Neg); NITRITES, URINE NEGATIVE (Neg); OCCULT BLOOD,URINE TRACE-INTACT (Neg); PH,URINE 5.5 (4.8-8.0); PROTEIN,URINE NEGATIVE (Neg); UROBILINOGEN,URINE 0.2 E.U/dL (0.2-1.0)
[2022-06-03 17:03] LABS: UA COLLECTION TYPE VOIDED
[2022-06-03 17:04] LABS: BACTERIA,URINE 2+ /HPF (Neg); RBC,URINE 0-2 /HPF (0-2); WBC,URINE 0-4 /HPF (0-4)
[2022-06-03 17:05] LABS: SQUAMOUS EPITHELIAL CELL,UR MANY /LPF (FEW); YEAST MODERATE /HPF (NEGATIVE)
[2022-06-03 17:07] LABS: ALBUMIN 2.9 G/DL (3.4-5.0); ANION GAP 26 (8-16); BLOOD UREA NITROGEN 39 MG/DL (7-18); BUN/CREATININE RATIO 27.3 (6.6-38.0); CALCIUM 7.3 MG/DL (8.5-10.1); CHLORIDE 94 MMOL/L (99-107); CREATININE 1.43 MG/DL (0.40-0.90); PHOSPHORUS 5.8 MG/DL (2.3-4.5); POTASSIUM 5.8 MMOL/L (3.5-5.1); SODIUM 126 MMOL/L (135-145); eGFR 43 ML/MIN
[2022-06-03 17:10] LABS: GLUCOSE 682 MG/DL (70-104); TOTAL CARBON DIOXIDE 6.1 MMOL/L (24-32)
[2022-06-03 19:41] LABS: OXYGEN SATURATION (MIXED VEN) 91.9 % (60-80); PO2 MIXED VENOUS (TEMP COR) 60.9 mmHg (35-46)
[2022-06-03] MEDS: Insulin Reg/NS 100units/100mL 100 ML IV SCH (19:56)
[2022-06-03] MEDS: K and/or MAG REPLACEMENT MC SCH (20:00)
--- NOTE | 2022-06-03 20:05 | NUR ---
Communication -Called Dr. Santiago regarding pt has coffee ground emesis. Zofran ordered, but Zofran is on allergy list. Received order for Compazine.
[2022-06-03] MEDS: proCHLORperazine 10 MG/2 ml inj IV PRN (20:14)
[2022-06-03] MEDS ORDERED: pantoprazole 40mg IV 80 MG in normal saline 100ml IV soln 100 ML IV ONE (20:15)
--- NOTE | 2022-06-03 20:30 | NUR ---
Communication -Called Dr. Santiago regarding critical labs and SQ Heparin order with GI bleed. Orders received.
[2022-06-03] MEDS: nicotine 21mg patch - 24 hr TD SCH (20:45)
[2022-06-03] MEDS: dextrose 5%-1/2 normal saline 1,000 ML IV SCH (21:24)
[2022-06-03 21:40] LABS: ANION GAP 16 (8-16); BLOOD UREA NITROGEN 27 MG/DL (7-18); BUN/CREATININE RATIO 23.7 (6.6-38.0); CALCIUM 7.7 MG/DL (8.5-10.1); CHLORIDE 105 MMOL/L (99-107); CREATININE 1.14 MG/DL (0.40-0.90); GLUCOSE 277 MG/DL (70-104); POTASSIUM 5.1 MMOL/L (3.5-5.1); SODIUM 134 MMOL/L (135-145); eGFR 55 ML/MIN
[2022-06-03 21:44] LABS: TOTAL CARBON DIOXIDE 12.9 MMOL/L (24-32)
[2022-06-04] VITALS (18 sets, daily range): BP systolic 113–187; BP diastolic 51–89
[2022-06-04] MEDS: Insulin Reg/NS 100units/100mL 100 ML IV SCH (00:17)
--- NOTE | 2022-06-04 02:00 | NUR ---
Insulin pump found on pt's abdomen while changing linens. Pt is unable to answer questions regarding functioning of pump. When asked who manages the pump for her, pt replied "my fiance." Pump removed, placed in ziplock bag with pt label and placed in complaint investigations officer pt's room.
[2022-06-04] MEDS: sodium phosphate inj. 15 MMOL in dextrose 5%-water 250 ML IV PRN ×2 (02:24→11:55)
[2022-06-04] MEDS: dextrose 5%-1/2 normal saline 1,000 ML IV SCH ×2 (02:28→08:20)
[2022-06-04 02:49] LABS: ALBUMIN 2.8 G/DL (3.4-5.0); ANION GAP 12 (8-16); BLOOD UREA NITROGEN 15 MG/DL (7-18); BUN/CREATININE RATIO 17.4 (6.6-38.0); CALCIUM 7.7 MG/DL (8.5-10.1); CHLORIDE 107 MMOL/L (99-107); CREATININE 0.86 MG/DL (0.40-0.90); GLUCOSE 175 MG/DL (70-104); MAGNESIUM 1.8 MG/DL (1.5-2.4); PHOSPHORUS 1.8 MG/DL (2.3-4.5); POTASSIUM 3.8 MMOL/L (3.5-5.1); SODIUM 135 MMOL/L (135-145); TOTAL CARBON DIOXIDE 15.6 MMOL/L (24-32); eGFR 76 ML/MIN
[2022-06-04 06:23] LABS: ALBUMIN 2.6 G/DL (3.4-5.0); ANION GAP 12 (8-16); BLOOD UREA NITROGEN 11 MG/DL (7-18); BUN/CREATININE RATIO 13.4 (6.6-38.0); CALCIUM 7.6 MG/DL (8.5-10.1); CHLORIDE 107 MMOL/L (99-107); CREATININE 0.82 MG/DL (0.40-0.90); GLUCOSE 185 MG/DL (70-104); MAGNESIUM 1.7 MG/DL (1.5-2.4); PHOSPHORUS 2.2 MG/DL (2.3-4.5); POTASSIUM 3.5 MMOL/L (3.5-5.1); SODIUM 135 MMOL/L (135-145); TOTAL CARBON DIOXIDE 15.7 MMOL/L (24-32); eGFR 81 ML/MIN
--- NOTE | 2022-06-04 06:30 | NUR ---
Patient in room CICU 2006. I have received report from Mac RN and had the opportunity to ask questions and assume patient care.
[2022-06-04] MEDS: K and/or MAG REPLACEMENT MC SCH ×2 (08:00→20:00)
[2022-06-04] MEDS ORDERED: K and/or MAG REPLACEMENT MC SCH (08:00)
[2022-06-04] MEDS ORDERED: pantoprazole 40mg IV 80 MG in normal saline 100ml IV soln 100 ML IV SCH (08:00)
[2022-06-04] MEDS: nicotine 21mg patch - 24 hr TD SCH (08:19)
[2022-06-04] MEDS ORDERED: dextrose 50%-water 50ml dispensing syringe IV ONE (10:12)
[2022-06-04 10:15] LABS: ALBUMIN 2.5 G/DL (3.4-5.0); ANION GAP 8 (8-16); BLOOD UREA NITROGEN 8 MG/DL (7-18); BUN/CREATININE RATIO 11.4 (6.6-38.0); CALCIUM 7.8 MG/DL (8.5-10.1); CHLORIDE 110 MMOL/L (99-107); GLUCOSE 92 MG/DL (70-104); PHOSPHORUS 1.5 MG/DL (2.3-4.5); POTASSIUM 3.1 MMOL/L (3.5-5.1); SODIUM 138 MMOL/L (135-145); TOTAL CARBON DIOXIDE 19.9 MMOL/L (24-32); eGFR > 90 ML/MIN
[2022-06-04] MEDS ORDERED: potassium Cl 40MEQ/1/2NS 520ml 520 ML IV PRN (10:20)
[2022-06-04] MEDS ORDERED: insulin glargine (Lantus) pen - multi-dose SQ ONE (10:38)
[2022-06-04] MEDS ORDERED: dextrose 50%-water 50ml dispensing syringe IV PRN ×2 (10:40)
[2022-06-04] MEDS ORDERED: DEXTROSE 15 GM of carb/4 tabs (each vial/BOTTLE has 4 tablets) PO PRN ×2 (10:40)
[2022-06-04] MEDS ORDERED: glucagon, human recombinant 1mg kit SUBCUT PRN (10:40)
--- NOTE | 2022-06-04 11:39 | NUR ---
DM Consult: Pt admit DX DKA A1C 10.8% hx T1DM initial Glu 1089mg/dl, acute renal failure, and hyponatremia from severe dehydration per EMR. Glu 92-179mg/dl this AM on insulin drip w/ DKA resolved plan to restart home Lantus frequency at 30 units BID and wean insulin drip w/ PO as able per master control engineer at rounds. D5/half NS to run at 125ml/hr until sufficient PO assured as pt to sleepy to eat this AM per master control engineer; receiving electrolyte replacements per protocol. Noted pt hx T1DM w/ insulin pump found on pt last night and pt reports "fiance" manages it per EMR. Per social science research assistant; pt requested stoppage of insulin pump by PCP since too complicated and was supposed to f/u w/ PCP regarding insulin Rx in March but has not shown since. Pt takes 59 units Lantus BID at home per EMR. Pt would benefit from DM diet ed once more appropriate prior to dishcarge this admit. Will monitor for initial PO acceptance and further nutrition intervention needs this admit. Rec: 1. continue carb controlled diet per MD; encourage PO 2. monitor PO trends for ONS needs 3. routine bowel care 4. weekly wts 5. DM diet ed once more appropriate prior to discharge; A1C 10.8% hx T1DM w/ insulin pump though doesn't use. Only uses basal coverage per EMR Addendum: 06/04/22 at [address] Amended: Links added.
[2022-06-04] MEDS: POTASSIUM BICARB 20meq eff tab 20 MEQ TABLET.EFF PO PRN ×2 (11:54→16:02)
[2022-06-04] MEDS: proCHLORperazine 10 MG/2 ml inj IV PRN ×2 (12:42→19:04)
--- NOTE | 2022-06-04 17:20 | NUR ---
Patient transferred to room 3018B with all belongings. Family aware of transfer. Family brought in lamictal, sent with pt upstairs and given to receiving nurse Kristie OAKES. Nurse at bedside to receive pt.
--- NOTE | 2022-06-04 17:20 | NUR ---
Report received from ICU, Pt was admitted for DKA, Pt is now clear from DKA. Pt arrived on unit via wheelchair, alert and oriented, delayed response, pt stated she was found unresponsive at her house, discovered by her fiance. BGM 287, Pt needs potassium replacement PO and phosphorous replacement via IV (sodium phsophate @ 2.5ml/hr) being given at this time. Pt oriented to room. Call light within reach. Denies pain. Denies discomfort Addendum: 06/04/22 at 1759 by Mina Mckeon LVN Amended: Links added.
[2022-06-04 17:25] LABS: ALBUMIN 2.5 G/DL (3.4-5.0); ANION GAP 13 (8-16); BLOOD UREA NITROGEN 6 MG/DL (7-18); BUN/CREATININE RATIO 7.8 (6.6-38.0); CALCIUM 7.5 MG/DL (8.5-10.1); CHLORIDE 106 MMOL/L (99-107); CREATININE 0.77 MG/DL (0.40-0.90); GLUCOSE 278 MG/DL (70-104); MAGNESIUM 1.7 MG/DL (1.5-2.4); PHOSPHORUS 2.3 MG/DL (2.3-4.5); POTASSIUM 4.2 MMOL/L (3.5-5.1); SODIUM 136 MMOL/L (135-145); TOTAL CARBON DIOXIDE 16.7 MMOL/L (24-32); eGFR 87 ML/MIN
--- NOTE | 2022-06-04 18:00 | NUR ---
Patient in room PCU 3018. I have received report from VIOLETTE Taylor and had the opportunity to ask questions and assume patient care.
--- NOTE | 2022-06-04 18:11 | NUR ---
Problems reprioritized. Patient report given, questions answered & plan of care reviewed with Yuliana OAKES. Pt sitting upright in bed, call light within reach. Bedside report given. Addendum: 06/04/22 at 1811 by Mina Mckeon LVN Amended: Links added.
[2022-06-04] MEDS ORDERED: INSULIN GLARGINE SQ SCH (20:00)
[2022-06-04] MEDS ORDERED: mag hydrox/Alum hydrox/simeth 30ml oral suspension PO PRN (20:50)
[2022-06-04] MEDS: insulin Lispro (HumaLOG) vial - multi-dose SQ SCH ×2 (20:55→23:06)
[2022-06-04] MEDS: oxcarbazepine 150mg tablet PO SCH (20:58)
[2022-06-04] MEDS ORDERED: topiramate 25mg tablet PO SCH (21:00)
[2022-06-04] MEDS ORDERED: LAMOTRIGINE 25 MG PO SCH (21:00)
[2022-06-04] MEDS ORDERED: prazosin 1mg capsule PO SCH (21:00)
[2022-06-04] MEDS: pantoprazole 40MG/NS 100ML BAG 100 ML IV SCH (21:43)
[2022-06-04] MEDS: insulin glargine (Lantus) pen - multi-dose SQ SCH (23:05)
[2022-06-05 02:00] VITALS: BP 128/65
--- NOTE | 2022-06-05 06:09 | NUR ---
Problems reprioritized. Patient report given, questions answered & plan of care reviewed with VIOLETTE Enriquez.
[2022-06-05 07:00] VITALS: BP 105/54
[2022-06-05] MEDS ORDERED: levoTHYROXINE 88mcg tablet PO SCH (07:00)
[2022-06-05] MEDS: oxcarbazepine 150mg tablet PO SCH (07:33)
[2022-06-05] MEDS: insulin glargine (Lantus) pen - multi-dose SQ SCH (07:38)
[2022-06-05] MEDS: nicotine 21mg patch - 24 hr TD SCH (07:41)
[2022-06-05 07:51] LABS: ALBUMIN 2.5 G/DL (3.4-5.0); ANION GAP 9 (8-16); BLOOD UREA NITROGEN 10 MG/DL (7-18); BUN/CREATININE RATIO 14.7 (6.6-38.0); CALCIUM 8.3 MG/DL (8.5-10.1); CHLORIDE 105 MMOL/L (99-107); CREATININE 0.68 MG/DL (0.40-0.90); GLUCOSE 348 MG/DL (70-104); MAGNESIUM 1.9 MG/DL (1.5-2.4); PHOSPHORUS 1.9 MG/DL (2.3-4.5); SODIUM 136 MMOL/L (135-145); TOTAL CARBON DIOXIDE 22.1 MMOL/L (24-32); eGFR > 90 ML/MIN
[2022-06-05] MEDS: pantoprazole 40MG/NS 100ML BAG 100 ML IV SCH (07:54)
[2022-06-05] MEDS ORDERED: atorvastatin 20mg tablet PO SCH (08:00)
[2022-06-05] MEDS ORDERED: duloxetine 30mg CAPSULE.DR PO SCH (08:00)
[2022-06-05] MEDS ORDERED: cholecalciferol (vitamin D3) 1,000 unit (25mcg) tablet PO SCH (08:00)
[2022-06-05] MEDS ORDERED: cloNIDine 0.1 mg tablet PO SCH (08:00)
[2022-06-05] MEDS: K and/or MAG REPLACEMENT MC SCH (08:00)
--- NOTE | 2022-06-05 09:30 | NUR ---
Pt c/o hypoglcyemic symptoms - sweating and body aches. Pt blood sugar checked. Pt is anxious about eating breakfast. Breakfast tray was late. Pt happy after recieving breakfast tray. She stated she wanted a shower.
[2022-06-05] MEDS: insulin Lispro (HumaLOG) vial - multi-dose SQ SCH ×2 (09:47→13:20)
--- NOTE | 2022-06-05 10:48 | NUR ---
F/u: Noted pt recent admit 05/28/22 seen by LEIA for DM diet ed at that time. Addendum: 06/05/22 at [address] Amended: Links added.
[2022-06-05 11:00] VITALS: BP 120/72
[2022-06-05 11:16] LABS: ALBUMIN 2.8 G/DL (3.4-5.0); ANION GAP 17 (8-16); BLOOD UREA NITROGEN 12 MG/DL (7-18); BUN/CREATININE RATIO 10.5 (6.6-38.0); CALCIUM 8.8 MG/DL (8.5-10.1); CHLORIDE 99 MMOL/L (99-107); CREATININE 1.14 MG/DL (0.40-0.90); GLUCOSE 431 MG/DL (70-104); MAGNESIUM 1.5 MG/DL (1.5-2.4); PHOSPHORUS 1.6 MG/DL (2.3-4.5); POTASSIUM 3.9 MMOL/L (3.5-5.1); SODIUM 131 MMOL/L (135-145); TOTAL CARBON DIOXIDE 15.5 MMOL/L (24-32); eGFR 55 ML/MIN
[2022-06-05] MEDS: dextrose 5%-1/2 normal saline 1,000 ML IV SCH (13:09)
--- NOTE | 2022-06-05 15:15 | NUR ---
All Written and verbal instructions provided. All questions answered. PIV and R IJ IV discontinued. Pt stated she will follow up with MD in 1 month. Grinder Hardboard reinforced to patient and mother (who is at bedside), pt needs to follow up within 1 week with MD. Grinder Hardboard will be setting up appointment. Pt donned her clothes independently. Home meds picked up from [facility] pharmacy and patient went home with meds. Pt took all phone poem writer, phone, and clothing with her. Pt brought to lob in wheelchair, left with mother/father in personal vehicle.
== END 2022-06-05 14:59 | disposition home or self-care (01) | DRG 420 ==
LOC: ER 11:47 → ED HOLD 14:51 → CICU 2S 16:24 → PCU 3S 06-04 17:37
PROVIDERS: ADMIT Internal Medicine Critical Care Medicine; ATTEND Internal Medicine Critical Care Medicine
DX: E10.10 Type 1 diabetes mellitus with ketoacidosis without coma (principal); G93.41 Metabolic encephalopathy; N17.9 Acute kidney failure, unspecified; E03.9 Hypothyroidism, unspecified; E87.1 Hypo-osmolality and hyponatremia; E86.0 Dehydration; E87.5 Hyperkalemia; N73.9 Female pelvic inflammatory disease, unspecified; R00.0 Tachycardia, unspecified; R79.89 Other specified abnormal findings of blood chemistry; F17.210 Nicotine dependence, cigarettes, uncomplicated; F31.9 Bipolar disorder, unspecified; J45.909 Unspecified asthma, uncomplicated; Z56.0 Unemployment, unspecified; Z79.4 Long term (current) use of insulin; Z88.1 Allergy status to other antibiotic agents; Z88.2 Allergy status to sulfonamides; Z88.6 Allergy status to analgesic agent; Z91.199 Patient's noncompliance with other medical treatment and regimen due to unspecified reason; Z88.8 Allergy status to other drugs, medicaments and biological substances; Z91.040 Latex allergy status; Z79.899 Other long term (current) drug therapy; Z71.6 Tobacco abuse counseling
CPT/HCPCS: 36415; 36600; 80048; 80053; 81001; 82009; 82800; 82803; 82810; 82947; 82948; 83036; 83735; 84100; 84484; 85007; 85018; 85025; 87081; 96365; 96376; 99291; A6250; A6258; C9113; G0378; J0780; J1815; J3490; J7030; J7040; J7042; J7060

== ENCOUNTER 2022-06-25 20:53 | Inpatient (IN) | payer MEDICAID ==
[~2022-06-25] VITALS: Ht 144.8 cm; Wt 74.1 kg
[~2022-06-25 20:53] MED LIST changes: +INSU100V9 SQ; -LANTUS SQ
[2022-06-25] MEDS ORDERED: normal saline 1000ml 1,000 ML IV ONE (21:25)
[2022-06-25 21:32] LABS: BASOPHILS # (AUTO) 0.1 X10'3 (0-0.2); BASOPHILS % (AUTO) 0.4 % (0-1); EOSINOPHILS % (AUTO) 0 % (0-6); HEMATOCRIT 44.3 % (35.0-45.0); HEMOGLOBIN 14.7 g/dl (12.0-16.0); LYMPHOCYTES # (AUTO) 0.9 X10'3 (1.1-4.8); LYMPHOCYTES % (AUTO) 5.5 % (21-51); MEAN CORPUSCULAR HEMOGLOBIN 27.9 PG (27.0-31.0); MEAN CORPUSCULAR HGB CONC 33.1 g/dL (33.0-36.5); MEAN CORPUSCULAR VOLUME 84.2 FL (78-98); MEAN PLATELET VOLUME 8.7 FL (7.4-10.4); MONOCYTES # (AUTO) 0.7 X10'3 (0-0.9); MONOCYTES % (AUTO) 4.1 % (2-12); NEUTROPHILS # (AUTO) 15.3 X10'3 (1.8-7.7); PLATELET COUNT 345 X10'3 (140-440); RED BLOOD COUNT 5.26 X10'6 (4.20-5.60); RED CELL DISTRIBUTION WIDTH 13.6 % (11.5-14.5); WHITE BLOOD COUNT 16.9 X10'3 (4.5-11.0)
[2022-06-25 21:51] LABS: CLARITY,URINE SLIGHTLY CLOUDY (Clear); COLOR,URINE YELLOW (Yellow); GLUCOSE, URINE >=1000 mg/dl (Neg); KETONES,URINE >=80 mg/dl (Neg); LEUKOCYTE ESTERASE ,URINE NEGATIVE (Neg); NITRITES, URINE NEGATIVE (Neg); OCCULT BLOOD,URINE TRACE-INTACT (Neg); PH,URINE 5.5 (4.8-8.0); PROTEIN,URINE TRACE mg/dl (Neg); UROBILINOGEN,URINE 0.2 E.U/dL (0.2-1.0)
[2022-06-25 21:52] LABS: URINE HCG NEGATIVE (NEG)
[2022-06-25 21:54] LABS: ALANINE AMINOTRANSFERASE 49 U/L (12-78); ALBUMIN 4.1 G/DL (3.4-5.0); ALBUMIN/GLOBULIN RATIO 1.1 (1.1-1.5); ALKALINE PHOSPHATASE 125 IU/L (46-116); ANION GAP 22 (8-16); ASPARTATE AMINO TRANSFERASE 24 U/L (10-37); BILIRUBIN,TOTAL 0.7 MG/DL (0.1-1.0); BLOOD UREA NITROGEN 27 MG/DL (7-18); BUN/CREATININE RATIO 19.9 (6.6-38.0); CALCIUM 9.7 MG/DL (8.5-10.1); CHLORIDE 86 MMOL/L (99-107); CREATININE 1.36 MG/DL (0.40-0.90); LIPASE 83 U/L (73-393); POTASSIUM 5.3 MMOL/L (3.5-5.1); SODIUM 128 MMOL/L (135-145); TOTAL CARBON DIOXIDE 19.6 MMOL/L (24-32); eGFR 45 ML/MIN
[2022-06-25 21:56] LABS: UA COLLECTION TYPE NON-SPECIFIED
[2022-06-25 21:57] LABS: HYALINE CASTS 0-3 /LPF (NEGATIVE); SQUAMOUS EPITHELIAL CELL,UR MANY /LPF (FEW)
[2022-06-25 21:58] LABS: GLUCOSE 633 MG/DL (70-104)
[2022-06-25 21:59] LABS: BACTERIA,URINE NONE SEEN /HPF (Neg)
[2022-06-25 22:00] LABS: YEAST MANY /HPF (NEGATIVE)
[2022-06-25] MEDS: normal saline 1000ml 1,000 ML IV SCH ×3 (22:50→23:24)
[2022-06-25] MEDS ORDERED: sodium bicarbonate (8.4%) inj. 50 MEQ in dextrose 5% water 500ml 250 ML IV PRN (22:50)
[2022-06-25] MEDS ORDERED: potassium Cl 40MEQ/1/2NS 520ml 520 ML IV PRN ×2 (22:50)
[2022-06-25] MEDS ORDERED: sodium phosphate inj. 15 MMOL in dextrose 5%-water 250 ML IV PRN (22:50)
[2022-06-25] MEDS ORDERED: sodium bicarbonate (8.4%) inj. 100 MEQ in dextrose 5% water 500ml 500 ML IV PRN (22:50)
[2022-06-25] MEDS ORDERED: potassium Cl 20 mEq SR tablet PO PRN ×2 (22:50)
[2022-06-25] MEDS ORDERED: insulin regular, human U-100 3ml vial - multi-dose IV PRN (22:50)
[2022-06-25] MEDS ORDERED: Neutra Phos packet PO PRN (22:50)
[2022-06-25] MEDS ORDERED: sodium phosphate inj. 30 MMOL in dextrose 5%-water 250 ML IV PRN (22:50)
[2022-06-25] MEDS ORDERED: Insulin Reg/NS 100units/100mL 100 ML IV SCH (22:50)
[2022-06-25] MEDS ORDERED: potassium CL 20mEq in D5-1/2NS 1,000 ML IV PRN (22:50)
[2022-06-25] MEDS ORDERED: proCHLORperazine 10 MG/2 ml inj IV ONE (23:10)
[2022-06-25] MEDS ORDERED: CefTRIAXone/D5W-Rocephin 1gm 50 ML IV ONE (23:20)
[2022-06-25] MEDS ORDERED: iohexol 300mg/ml 100ml inj. ONE (23:21)
[2022-06-25 23:34] LABS: ALBUMIN 3.8 G/DL (3.4-5.0); ANION GAP 20 (8-16); BLOOD UREA NITROGEN 23 MG/DL (7-18); BUN/CREATININE RATIO 19.2 (6.6-38.0); CALCIUM 9.2 MG/DL (8.5-10.1); CHLORIDE 94 MMOL/L (99-107); PHOSPHORUS 3.6 MG/DL (2.3-4.5); SODIUM 133 MMOL/L (135-145); TOTAL CARBON DIOXIDE 19.1 MMOL/L (24-32); eGFR 52 ML/MIN
[2022-06-25 23:38] LABS: POTASSIUM 4.6 MMOL/L (3.5-5.1)
[2022-06-25 23:39] LABS: GLUCOSE 515 MG/DL (70-104)
[2022-06-25 23:56] LABS: MAGNESIUM 1.9 MG/DL (1.5-2.4)
[2022-06-26 00:07] LABS: URINE AMPHETAMINE SCREEN NEGATIVE (Neg); URINE BARBITUATE SCREEN NEGATIVE (Neg); URINE BENZODIAZEPINES SCREEN NEGATIVE (Neg); URINE CANNABINOID SCREEN POSITIVE (Neg); URINE COCAINE SCREEN NEGATIVE (Neg); URINE METHADONE SCREEN NEGATIVE (Neg); URINE OPIATE SCREEN NEGATIVE (Neg); URINE PHENCYCLIDINE SCREEN NEGATIVE (Neg)
[2022-06-26] MEDS ORDERED: acetaminophen 325mg tablet PO PRN (01:10)
[2022-06-26] MEDS ORDERED: mag hydrox/Alum hydrox/simeth 30ml oral suspension PO PRN (01:10)
[2022-06-26] MEDS ORDERED: potassium Cl 40MEQ/1/2NS 520ml 520 ML IV PRN ×2 (01:10→08:20)
[2022-06-26] MEDS ORDERED: magnesium hydroxide 30ml (MOM) UD suspension PO PRN (01:10)
[2022-06-26] MEDS ORDERED: potassium Cl 20 mEq SR tablet PO PRN ×4 (01:10→08:20)
[2022-06-26] MEDS: normal saline 1000ml 1,000 ML IV SCH ×7 (01:10→16:41)
[2022-06-26] MEDS ORDERED: OXCA150T14 PO (01:33)
[2022-06-26 03:26] LABS: ALBUMIN 3.4 G/DL (3.4-5.0); ANION GAP 12 (8-16); BLOOD UREA NITROGEN 19 MG/DL (7-18); BUN/CREATININE RATIO 19.2 (6.6-38.0); CHLORIDE 105 MMOL/L (99-107); CREATININE 0.99 MG/DL (0.40-0.90); GLUCOSE 288 MG/DL (70-104); PHOSPHORUS 2.3 MG/DL (2.3-4.5); POTASSIUM 4.1 MMOL/L (3.5-5.1); SODIUM 139 MMOL/L (135-145); TOTAL CARBON DIOXIDE 22.5 MMOL/L (24-32); eGFR 65 ML/MIN
--- NOTE | 2022-06-26 04:00 | NUR ---
Patient noted anion gap 12, CO2 at 22, however patient continues with intermittent nausea and PO intolerance. Discussed with admitting provider, advised repeat BMP at 1000 this day and consider hypoglycemia protocol at this time.
[2022-06-26] MEDS: heparin, porcine 5000 units/ml vial SQ SCH ×2 (07:25→20:22)
[2022-06-26] MEDS: oxcarbazepine 150mg tablet PO SCH ×2 (07:37→21:52)
[2022-06-26] MEDS: levoTHYROXINE 88mcg tablet PO SCH (07:37)
[2022-06-26] MEDS: docusate sod 100mg capsule PO SCH ×2 (07:39→20:10)
[2022-06-26] MEDS ORDERED: K and/or MAG REPLACEMENT MC SCH ×2 (08:00)
[2022-06-26] MEDS ORDERED: magnesium 4gm in 100ml NS 100 ML IV PRN (08:20)
[2022-06-26] MEDS ORDERED: glucagon, human recombinant 1mg kit SUBCUT PRN (08:20)
[2022-06-26] MEDS ORDERED: DEXTROSE 15 GM of carb/4 tabs (each vial/BOTTLE has 4 tablets) PO PRN ×2 (08:20)
[2022-06-26] MEDS ORDERED: MESSAGE TO PHARMACY PO ONE (08:20)
[2022-06-26] MEDS ORDERED: magnesium Cl slow-release 64mg tablet PO PRN (08:20)
[2022-06-26] MEDS ORDERED: dextrose 50%-water 50ml dispensing syringe IV PRN ×2 (08:20)
[2022-06-26] MEDS: ciprofloxacin 250mg tablet PO SCH ×3 (08:25→22:00)
[2022-06-26 10:21] LABS: ALBUMIN 3.3 G/DL (3.4-5.0); ANION GAP 7 (8-16); BLOOD UREA NITROGEN 13 MG/DL (7-18); BUN/CREATININE RATIO 18.3 (6.6-38.0); CALCIUM 8.5 MG/DL (8.5-10.1); CHLORIDE 105 MMOL/L (99-107); CREATININE 0.71 MG/DL (0.40-0.90); GLUCOSE 150 MG/DL (70-104); PHOSPHORUS 1.6 MG/DL (2.3-4.5); POTASSIUM 3.5 MMOL/L (3.5-5.1); SODIUM 138 MMOL/L (135-145); TOTAL CARBON DIOXIDE 26.2 MMOL/L (24-32); eGFR > 90 ML/MIN
[2022-06-26] MEDS: insulin Lispro (HumaLOG) vial - multi-dose SQ SCH ×2 (12:57→19:59)
[2022-06-26 20:00] VITALS: BP 151/83
[2022-06-26] MEDS: K and/or MAG REPLACEMENT MC SCH (20:00)
[2022-06-26] MEDS: topiramate 25mg tablet PO SCH (20:10)
[2022-06-26] MEDS: prazosin 1mg capsule PO SCH (21:51)
[2022-06-26] MEDS: LAMOTRIGINE 25 MG PO SCH (21:57)
[2022-06-26] MEDS: insulin glargine (Lantus) pen - multi-dose SQ SCH (22:14)
[2022-06-26 23:00] VITALS: BP 156/81
[2022-06-27] MEDS: normal saline 1000ml 1,000 ML IV SCH ×2 (00:23→07:20)
[2022-06-27 03:00] VITALS: BP 112/53
[2022-06-27 06:00] VITALS: BP 114/58
[2022-06-27 07:01] LABS: BASOPHILS % (AUTO) 0.5 % (0-1); EOSINOPHILS % (AUTO) 0 % (0-6); LYMPHOCYTES # (AUTO) 1.6 X10'3 (1.1-4.8); LYMPHOCYTES % (AUTO) 26.8 % (21-51); MEAN CORPUSCULAR HEMOGLOBIN 28.8 PG (27.0-31.0); MEAN CORPUSCULAR HGB CONC 34.3 g/dL (33.0-36.5); MEAN CORPUSCULAR VOLUME 83.7 FL (78-98); MEAN PLATELET VOLUME 7.8 FL (7.4-10.4); MONOCYTES # (AUTO) 0.5 X10'3 (0-0.9); MONOCYTES % (AUTO) 8.4 % (2-12); NEUTROPHILS # (AUTO) 3.9 X10'3 (1.8-7.7); NEUTROPHILS % (AUTO) 64.3 % (42-75); PLATELET COUNT 199 X10'3 (140-440); RED BLOOD COUNT 3.82 X10'6 (4.20-5.60); WHITE BLOOD COUNT 6.1 X10'3 (4.5-11.0)
[2022-06-27] MEDS: docusate sod 100mg capsule PO SCH ×2 (07:16→20:14)
[2022-06-27] MEDS: heparin, porcine 5000 units/ml vial SQ SCH ×2 (07:17→20:11)
[2022-06-27] MEDS: oxcarbazepine 150mg tablet PO SCH ×2 (07:18→20:13)
[2022-06-27] MEDS: duloxetine 30mg CAPSULE.DR PO SCH (07:18)
[2022-06-27] MEDS: levoTHYROXINE 88mcg tablet PO SCH (07:18)
[2022-06-27 07:34] LABS: ALANINE AMINOTRANSFERASE 33 U/L (12-78); ALKALINE PHOSPHATASE 89 IU/L (46-116); ANION GAP 10 (8-16); ASPARTATE AMINO TRANSFERASE 35 U/L (10-37); BILIRUBIN,TOTAL 0.4 MG/DL (0.1-1.0); BLOOD UREA NITROGEN 7 MG/DL (7-18); BUN/CREATININE RATIO 12.7 (6.6-38.0); CHLORIDE 105 MMOL/L (99-107); CREATININE 0.55 MG/DL (0.40-0.90); GLUCOSE 329 MG/DL (70-104); MAGNESIUM 2.1 MG/DL (1.5-2.4); PHOSPHORUS 1.8 MG/DL (2.3-4.5); POTASSIUM 4.1 MMOL/L (3.5-5.1); SODIUM 136 MMOL/L (135-145); TOTAL CARBON DIOXIDE 21.2 MMOL/L (24-32); eGFR > 90 ML/MIN
[2022-06-27] MEDS: K and/or MAG REPLACEMENT MC SCH ×2 (08:00→20:00)
--- NOTE | 2022-06-27 08:09 | NUR ---
AGER ID: [phone] MESSAGE: [phone] [place]-needs PRN for nausea, allergic to zofran. Brown [phone]
[2022-06-27] MEDS: insulin Lispro (HumaLOG) vial - multi-dose SQ SCH ×4 (09:02→21:21)
[2022-06-27] MEDS: ciprofloxacin 250mg tablet PO SCH ×2 (11:03→21:07)
[2022-06-27 11:20] VITALS: BP 133/52
[2022-06-27 14:17] VITALS: BP 154/76
[2022-06-27 18:00] VITALS: BP 160/84
[2022-06-27] MEDS: prazosin 1mg capsule PO SCH (20:13)
[2022-06-27] MEDS: topiramate 25mg tablet PO SCH (20:14)
[2022-06-27] MEDS: LAMOTRIGINE 25 MG PO SCH (20:14)
[2022-06-27] MEDS: insulin glargine (Lantus) pen - multi-dose SQ SCH (21:22)
[2022-06-27 21:55] VITALS: BP 159/84
[2022-06-28 03:00] VITALS: BP 111/62
--- NOTE | 2022-06-28 06:33 | NUR ---
LN received report from [facility] nurse. Pt stable overnight no changes att.
[2022-06-28 06:43] LABS: BASOPHILS % (AUTO) 0.6 % (0-1); EOSINOPHILS % (AUTO) 0 % (0-6); HEMATOCRIT 34.7 % (35.0-45.0); HEMOGLOBIN 11.6 g/dl (12.0-16.0); LYMPHOCYTES # (AUTO) 1.4 X10'3 (1.1-4.8); LYMPHOCYTES % (AUTO) 27.1 % (21-51); MEAN CORPUSCULAR HEMOGLOBIN 27.9 PG (27.0-31.0); MEAN CORPUSCULAR HGB CONC 33.3 g/dL (33.0-36.5); MEAN CORPUSCULAR VOLUME 83.8 FL (78-98); MONOCYTES # (AUTO) 0.6 X10'3 (0-0.9); MONOCYTES % (AUTO) 10.7 % (2-12); NEUTROPHILS # (AUTO) 3.3 X10'3 (1.8-7.7); NEUTROPHILS % (AUTO) 61.6 % (42-75); PLATELET COUNT 194 X10'3 (140-440); RED BLOOD COUNT 4.15 X10'6 (4.20-5.60); RED CELL DISTRIBUTION WIDTH 13.4 % (11.5-14.5); WHITE BLOOD COUNT 5.3 X10'3 (4.5-11.0)
[2022-06-28 06:49] LABS: ALANINE AMINOTRANSFERASE 33 U/L (12-78); ALBUMIN 3.1 G/DL (3.4-5.0); ALBUMIN/GLOBULIN RATIO 0.9 (1.1-1.5); ALKALINE PHOSPHATASE 99 IU/L (46-116); ANION GAP 7 (8-16); ASPARTATE AMINO TRANSFERASE 35 U/L (10-37); BILIRUBIN,TOTAL 0.3 MG/DL (0.1-1.0); BLOOD UREA NITROGEN 8 MG/DL (7-18); BUN/CREATININE RATIO 12.7 (6.6-38.0); CALCIUM 8.4 MG/DL (8.5-10.1); CHLORIDE 102 MMOL/L (99-107); CREATININE 0.63 MG/DL (0.40-0.90); GLUCOSE 361 MG/DL (70-104); MAGNESIUM 1.9 MG/DL (1.5-2.4); PHOSPHORUS 2.5 MG/DL (2.3-4.5); SODIUM 134 MMOL/L (135-145); TOTAL CARBON DIOXIDE 24.7 MMOL/L (24-32); TOTAL PROTEIN 6.4 G/DL (6.4-8.2); eGFR > 90 ML/MIN
[2022-06-28 07:00] VITALS: BP 116/59
[2022-06-28] MEDS: K and/or MAG REPLACEMENT MC SCH (08:00)
[2022-06-28] MEDS: duloxetine 30mg CAPSULE.DR PO SCH (09:49)
[2022-06-28] MEDS: oxcarbazepine 150mg tablet PO SCH (09:49)
[2022-06-28] MEDS: levoTHYROXINE 88mcg tablet PO SCH (09:49)
[2022-06-28] MEDS: docusate sod 100mg capsule PO SCH (09:49)
[2022-06-28] MEDS: heparin, porcine 5000 units/ml vial SQ SCH (09:50)
[2022-06-28] MEDS: insulin Lispro (HumaLOG) vial - multi-dose SQ SCH ×2 (09:53→13:08)
[2022-06-28] MEDS: ciprofloxacin 250mg tablet PO SCH (10:00)
[2022-06-28 11:00] VITALS: BP 120/60
--- NOTE | 2022-06-28 13:31 | NUR ---
Pt stable and d/c'd today as per MD order. Pt took all belongings and signed paperwork. PIV d/c'd, cannula intact. Pt transferred off unit at approx 1320, transferred into family vehicle safely.
== END 2022-06-28 13:21 | disposition home health service (06) | DRG 420 ==
LOC: ER 20:53 → ED HOLD 06-26 01:12 → PCU 3S 06-26 19:30
PROVIDERS: ADMIT Internal Medicine; ATTEND Family Medicine
PROC: BW211ZZ Computerized Tomography (CT Scan) of Abdomen and Pelvis using Low Osmolar Contrast (ICD-10-PCS; principal; 2022-06-25)
DX: E10.10 Type 1 diabetes mellitus with ketoacidosis without coma (principal); N17.9 Acute kidney failure, unspecified; K76.0 Fatty (change of) liver, not elsewhere classified; E86.0 Dehydration; Z20.822 Contact with and (suspected) exposure to COVID-19; K80.20 Calculus of gallbladder without cholecystitis without obstruction; E66.9 Obesity, unspecified; E87.5 Hyperkalemia; F43.10 Post-traumatic stress disorder, unspecified; E03.9 Hypothyroidism, unspecified; J45.909 Unspecified asthma, uncomplicated; F32.A Depression, unspecified; K57.30 Diverticulosis of large intestine without perforation or abscess without bleeding; Z72.0 Tobacco use; Z79.4 Long term (current) use of insulin; Z79.899 Other long term (current) drug therapy; Z88.1 Allergy status to other antibiotic agents; Z88.2 Allergy status to sulfonamides; Z88.6 Allergy status to analgesic agent; Z88.8 Allergy status to other drugs, medicaments and biological substances; Z56.0 Unemployment, unspecified; Z68.35 Body mass index [BMI] 35.0-35.9, adult
CPT/HCPCS: 36415; 74177; 80048; 80053; 80305; 81001; 81025; 82009; 82800; 82948; 83605; 83690; 83735; 84100; 84145; 84443; 85025; 87081; 87088; 87811; 96361; 96365; 96367; 96375; 99285; G0378; J0696; J0780; J1644; J1815; J7030; Q9967

== ENCOUNTER 2022-08-18 12:47 | Inpatient (IN) | payer MEDICAID ==
[~2022-08-18] VITALS: Ht 149.9 cm; Wt 81.8 kg
[~2022-08-18 12:47] MED LIST changes: +OXCA150T14 PO; -OXCA300T16 PO
[2022-08-18] MEDS ORDERED: dextrose 50%-water 50ml dispensing syringe IV PRN (13:00)
[2022-08-18] MEDS ORDERED: normal saline 1000ML IV soln IVB ONE (13:00)
[2022-08-18] MEDS ORDERED: insulin regular, human U-100 3ml vial - multi-dose IV ONE (13:00)
[2022-08-18 13:13] LABS: BASOPHILS # (AUTO) 0.1 X10'3 (0-0.2); BASOPHILS % (AUTO) 0.8 % (0-1); EOSINOPHILS % (AUTO) 0 % (0-6); HEMATOCRIT 43.2 % (35.0-45.0); HEMOGLOBIN 13.8 g/dl (12.0-16.0); LYMPHOCYTES # (AUTO) 1.5 X10'3 (1.1-4.8); LYMPHOCYTES % (AUTO) 8.4 % (21-51); MEAN CORPUSCULAR HEMOGLOBIN 26.8 PG (27.0-31.0); MEAN CORPUSCULAR HGB CONC 31.9 g/dL (33.0-36.5); MEAN CORPUSCULAR VOLUME 84.1 FL (78-98); MEAN PLATELET VOLUME 9.2 FL (7.4-10.4); MONOCYTES # (AUTO) 0.7 X10'3 (0-0.9); NEUTROPHILS % (AUTO) 86.8 % (42-75); PLATELET COUNT 247 X10'3 (140-440); RED BLOOD COUNT 5.14 X10'6 (4.20-5.60); RED CELL DISTRIBUTION WIDTH 15.6 % (11.5-14.5); WHITE BLOOD COUNT 18.4 X10'3 (4.5-11.0)
[2022-08-18] MEDS: Insulin Reg/NS 100units/100mL 100 ML IV SCH (13:15)
[2022-08-18 13:30] LABS: ALANINE AMINOTRANSFERASE 43 U/L (12-78); ALBUMIN 4.4 G/DL (3.4-5.0); ALKALINE PHOSPHATASE 139 IU/L (46-116); ANION GAP 27 (8-16); ASPARTATE AMINO TRANSFERASE 20 U/L (10-37); BILIRUBIN,TOTAL 0.6 MG/DL (0.1-1.0); BLOOD UREA NITROGEN 32 MG/DL (7-18); BUN/CREATININE RATIO 28.3 (6.6-38.0); CALCIUM 9.9 MG/DL (8.5-10.1); CHLORIDE 88 MMOL/L (99-107); CREATININE 1.13 MG/DL (0.40-0.90); POTASSIUM 5.5 MMOL/L (3.5-5.1); SODIUM 127 MMOL/L (135-145); eGFR 56 ML/MIN
[2022-08-18 13:39] LABS: GLUCOSE 710 MG/DL (70-104)
[2022-08-18 13:40] LABS: TOTAL CARBON DIOXIDE 11.7 MMOL/L (24-32)
[2022-08-18 14:38] LABS: ABG BASE EXCESS -19.7 mmol/L (-2.0-2.0); ABG HCO3 8.8 mmol/L (22.0-26.0); ABG OXYGEN SATURATION 96.1 % (94-97); ABG PCO2 (T) 28.8 mmHg (32.0-45.0); ABG PO2 (T) 102.1 mmHg (75.0-100.0); FCOHb 1.7 % (0.0-3.9); FMetHb 0.4 % (0.0-1.5); FO2Hb 94.1 % (94-97); PATIENT TEMPERATURE 36.7; TOTAL HEMOGLOBIN 14.9 G/dl (12.0-16.0)
[2022-08-18] MEDS ORDERED: INSU100V43 SQ (14:47)
[2022-08-18] MEDS ORDERED: sodium phosphate inj. 30 MMOL in dextrose 5%-water 250 ML IV PRN (16:25)
[2022-08-18] MEDS ORDERED: magnesium Cl slow-release 64mg tablet PO PRN (16:25)
[2022-08-18] MEDS ORDERED: potassium Cl 40MEQ/1/2NS 520ml 520 ML IV PRN ×3 (16:25)
[2022-08-18] MEDS ORDERED: potassium Cl 20 mEq SR tablet PO PRN ×4 (16:25)
[2022-08-18] MEDS ORDERED: potassium CL 20mEq in D5-1/2NS 1,000 ML IV PRN (16:25)
[2022-08-18] MEDS ORDERED: sodium bicarbonate (8.4%) inj. 50 MEQ in dextrose 5% water 500ml 250 ML IV PRN (16:25)
[2022-08-18] MEDS ORDERED: sodium bicarbonate (8.4%) inj. 100 MEQ in dextrose 5% water 500ml 500 ML IV PRN (16:25)
[2022-08-18] MEDS ORDERED: Insulin Reg/NS 100units/100mL 100 ML IV SCH ×3 (16:25→17:00)
[2022-08-18] MEDS ORDERED: Neutra Phos packet PO PRN (16:25)
[2022-08-18] MEDS ORDERED: magnesium 4gm in 100ml NS 100 ML IV PRN (16:25)
[2022-08-18] MEDS ORDERED: sodium phosphate inj. 15 MMOL in dextrose 5%-water 250 ML IV PRN (16:25)
[2022-08-18] MEDS ORDERED: ondansetron/PF 4mg/2ml inj IV PRN (16:25)
[2022-08-18] MEDS: normal saline 1000ml 1,000 ML IV SCH ×4 (16:43→20:21)
[2022-08-18 17:22] LABS: ALBUMIN 4.2 G/DL (3.4-5.0); ANION GAP 26 (8-16); BLOOD UREA NITROGEN 28 MG/DL (7-18); CALCIUM 8.7 MG/DL (8.5-10.1); CHLORIDE 98 MMOL/L (99-107); CREATININE 1.12 MG/DL (0.40-0.90); PHOSPHORUS 6.2 MG/DL (2.3-4.5); POTASSIUM 4.6 MMOL/L (3.5-5.1); SODIUM 135 MMOL/L (135-145); eGFR 56 ML/MIN
[2022-08-18 17:26] LABS: GLUCOSE 542 MG/DL (70-104); TOTAL CARBON DIOXIDE 10.7 MMOL/L (24-32)
[2022-08-18] MEDS: proCHLORperazine 10 MG/2 ml inj IV PRN (19:11)
[2022-08-18] MEDS: K and/or MAG REPLACEMENT MC SCH (19:59)
[2022-08-18] MEDS ORDERED: K and/or MAG REPLACEMENT MC SCH (20:00)
--- NOTE | 2022-08-18 21:46 | NUR ---
PATIENT PLACED ON HOSPITAL BED
[2022-08-18 22:08] LABS: ALBUMIN 4.2 G/DL (3.4-5.0); ANION GAP 21 (8-16); BLOOD UREA NITROGEN 23 MG/DL (7-18); BUN/CREATININE RATIO 19.8 (6.6-38.0); CHLORIDE 105 MMOL/L (99-107); CREATININE 1.16 MG/DL (0.40-0.90); GLUCOSE 406 MG/DL (70-104); PHOSPHORUS 4.2 MG/DL (2.3-4.5); POTASSIUM 4.6 MMOL/L (3.5-5.1); SODIUM 140 MMOL/L (135-145); eGFR 54 ML/MIN
[2022-08-18 22:11] LABS: TOTAL CARBON DIOXIDE 13.9 MMOL/L (24-32)
[2022-08-19] MEDS: normal saline 1000ml 1,000 ML IV SCH ×6 (00:47→23:15)
--- NOTE | 2022-08-19 01:08 | NUR ---
STARTED D5 1/2 NS
[2022-08-19] MEDS: potassium CL 20mEq in D5-1/2NS 1,000 ML IV SCH ×3 (01:15→16:08)
[2022-08-19] MEDS ORDERED: dextrose 5%-1/2 normal saline 1,000 ML IV ONE (01:15)
--- NOTE | 2022-08-19 02:07 | NUR ---
PATIENT ASLEEP RR EVEN UN LABORED NO OBSERVABLE S/S OF ACUTE STRESS AT THIS TIME
[2022-08-19] MEDS: insulin regular, human U-100 3ml vial - multi-dose IV PRN ×3 (02:52→17:10)
[2022-08-19] MEDS: Insulin Reg/NS 100units/100mL 100 ML IV SCH ×4 (02:54→16:01)
[2022-08-19] MEDS: proCHLORperazine 10 MG/2 ml inj IV PRN (03:14)
[2022-08-19 04:06] LABS: BASOPHILS # (AUTO) 0.1 X10'3 (0-0.2); BASOPHILS % (AUTO) 0.3 % (0-1); EOSINOPHILS % (AUTO) 0 % (0-6); HEMATOCRIT 40.9 % (35.0-45.0); HEMOGLOBIN 13.5 g/dl (12.0-16.0); LYMPHOCYTES # (AUTO) 1.3 X10'3 (1.1-4.8); LYMPHOCYTES % (AUTO) 6.3 % (21-51); MEAN CORPUSCULAR HGB CONC 33.1 g/dL (33.0-36.5); MEAN CORPUSCULAR VOLUME 81.6 FL (78-98); MEAN PLATELET VOLUME 8.2 FL (7.4-10.4); MONOCYTES # (AUTO) 0.9 X10'3 (0-0.9); MONOCYTES % (AUTO) 4.2 % (2-12); NEUTROPHILS # (AUTO) 18.7 X10'3 (1.8-7.7); NEUTROPHILS % (AUTO) 89.2 % (42-75); PLATELET COUNT 254 X10'3 (140-440); RED BLOOD COUNT 5.01 X10'6 (4.20-5.60); RED CELL DISTRIBUTION WIDTH 15.4 % (11.5-14.5)
[2022-08-19 04:18] LABS: ALANINE AMINOTRANSFERASE 33 U/L (12-78); ALBUMIN 3.9 G/DL (3.4-5.0); ALBUMIN/GLOBULIN RATIO 1.1 (1.1-1.5); ALKALINE PHOSPHATASE 110 IU/L (46-116); ANION GAP 15 (8-16); ASPARTATE AMINO TRANSFERASE 13 U/L (10-37); BILIRUBIN,TOTAL 0.3 MG/DL (0.1-1.0); BLOOD UREA NITROGEN 17 MG/DL (7-18); BUN/CREATININE RATIO 17.7 (6.6-38.0); CHLORIDE 110 MMOL/L (99-107); CREATININE 0.96 MG/DL (0.40-0.90); GLUCOSE 275 MG/DL (70-104); MAGNESIUM 1.9 MG/DL (1.5-2.4); POTASSIUM 3.9 MMOL/L (3.5-5.1); SODIUM 143 MMOL/L (135-145); TOTAL CARBON DIOXIDE 17.9 MMOL/L (24-32); TOTAL PROTEIN 7.6 G/DL (6.4-8.2); eGFR 67 ML/MIN
--- NOTE | 2022-08-19 06:30 | NUR ---
PT BLOOD GLUCOSE < 250MG/DL IS NOW ON D5 1/2 NS AT 150ML/HR
--- NOTE | 2022-08-19 06:30 | NUR ---
Aniya menchaca in [facility] - 08/19/22 at 1057 by VICK PT BLOOD GLUCOSE < 250MG/DL IS NOW ON D5 06/08 NS AT 150ML/HR
--- NOTE | 2022-08-19 06:45 | NUR ---
BLOOD GLUCOSE OF 222 PER THE PROTOCOL WILL INCREASE THE INSULIN BY 20% FROM 17 UNITS/HR TO 20.4 UNITS/HR
--- NOTE | 2022-08-19 07:51 | NUR ---
BLOOD GLUCOSE OF 194 PER THE PROTOCOL WILL INCREASE THE INSULIN BY 20% FROM 20.4 UNITS/HR TO 24.48 UNITS/HR
[2022-08-19] MEDS: K and/or MAG REPLACEMENT MC SCH (08:00)
--- NOTE | 2022-08-19 11:26 | NUR ---
PER PROTOCOL INCREASED THE D5 1/2 NS TO 200ML/HR AFTER BG FELL BELOW 150MG/DL
--- NOTE | 2022-08-19 11:49 | NUR ---
BLOOD GLUCOSE OF 126 PER THE PROTOCOL WILL DECREASE THE INSULIN BY 20% FROM 20.4 UNITS/HR TO 16.32 UNITS/HR
[2022-08-19 12:42] LABS: BASOPHILS # (AUTO) 0.1 X10'3 (0-0.2); BASOPHILS % (AUTO) 0.3 % (0-1); EOSINOPHILS % (AUTO) 0 % (0-6); HEMATOCRIT 39.7 % (35.0-45.0); HEMOGLOBIN 12.9 g/dl (12.0-16.0); LYMPHOCYTES # (AUTO) 1.4 X10'3 (1.1-4.8); LYMPHOCYTES % (AUTO) 4.9 % (21-51); MEAN CORPUSCULAR HEMOGLOBIN 26.7 PG (27.0-31.0); MEAN CORPUSCULAR HGB CONC 32.5 g/dL (33.0-36.5); MEAN CORPUSCULAR VOLUME 82.3 FL (78-98); MEAN PLATELET VOLUME 8.3 FL (7.4-10.4); MONOCYTES # (AUTO) 2.5 X10'3 (0-0.9); NEUTROPHILS # (AUTO) 24.1 X10'3 (1.8-7.7); NEUTROPHILS % (AUTO) 85.8 % (42-75); PLATELET COUNT 264 X10'3 (140-440); RED BLOOD COUNT 4.83 X10'6 (4.20-5.60); RED CELL DISTRIBUTION WIDTH 15.5 % (11.5-14.5)
[2022-08-19 12:57] LABS: ALBUMIN 3.7 G/DL (3.4-5.0); ANION GAP 12 (8-16); BLOOD UREA NITROGEN 17 MG/DL (7-18); CALCIUM 9.5 MG/DL (8.5-10.1); CHLORIDE 113 MMOL/L (99-107); CREATININE 0.85 MG/DL (0.40-0.90); GLUCOSE 135 MG/DL (70-104); PHOSPHORUS 1.6 MG/DL (2.3-4.5); POTASSIUM 3.9 MMOL/L (3.5-5.1); SODIUM 145 MMOL/L (135-145); TOTAL CARBON DIOXIDE 20.5 MMOL/L (24-32); eGFR 78 ML/MIN
[2022-08-19 12:58] LABS: WHITE BLOOD COUNT 28.1 X10'3 (4.5-11.0)
--- NOTE | 2022-08-19 14:40 | NUR ---
BLOOD GLUCOSE OF 116 PER THE PROTOCOL WILL DECREASE THE INSULIN BY 20% FROM 16.32 UNITS/HR TO 13.05 UNITS/HR
[2022-08-19 15:34] LABS: PLATELET ESTIMATE NORMAL; TOTAL CELLS COUNTED 100
--- NOTE | 2022-08-19 16:09 | NUR ---
INCREASED INFUSION RATE OF D5 1/2 NS WITH K+ UP TO 250ML/HR PER PROTOCOL. CO2 UP TO 20.5 BLOOD GLUCOSE < 200 ANION GAP < 16 AND PT REQUESTING FOOD AND DRINK WILL CHECK PH
--- NOTE | 2022-08-19 16:19 | NUR ---
received a telephone order for an ABG, give PO fluids, and 5 units of SubQ insulin for this pt. Addendum: 08/19/22 at 1624 by [email or web address] received a telephone order from Dr Connell for an ABG, give PO fluids, and 5 units of SubQ insulin for this pt.
--- NOTE | 2022-08-19 16:43 | NUR ---
PT HAS SWELLING AND ERYTHEMA TO THE LEFT EYE WITH SLIGHT SECRETIONS FROM IT
--- NOTE | 2022-08-19 17:13 | NUR ---
PT IS TOLERATING PO FLUIDS AT THIS TIME
[2022-08-19 18:02] LABS: ABG BASE EXCESS -6.2 mmol/L (-2.0-2.0); ABG HCO3 17.3 mmol/L (22.0-26.0); ABG OXYGEN SATURATION 97.4 % (94-97); ABG PCO2 (T) 28.7 mmHg (32.0-45.0); ABG PO2 (T) 95.6 mmHg (75.0-100.0); ALLEN'S TEST POSITIVE; FCOHb 0.1 % (0.0-3.9); FMetHb 0.3 % (0.0-1.5)
--- NOTE | 2022-08-19 19:17 | NUR ---
report called to Vincenzo who kindly accepts report at this time.
[2022-08-19 19:20] VITALS: BP 198/88
[2022-08-19 21:10] LABS: ALBUMIN 3.2 G/DL (3.4-5.0); ANION GAP 8 (8-16); BLOOD UREA NITROGEN 12 MG/DL (7-18); BUN/CREATININE RATIO 18.2 (6.6-38.0); CALCIUM 8.7 MG/DL (8.5-10.1); CHLORIDE 110 MMOL/L (99-107); CREATININE 0.66 MG/DL (0.40-0.90); GLUCOSE 133 MG/DL (70-104); MAGNESIUM 1.6 MG/DL (1.5-2.4); PHOSPHORUS 1.4 MG/DL (2.3-4.5); POTASSIUM 3.5 MMOL/L (3.5-5.1); SODIUM 140 MMOL/L (135-145); TOTAL CARBON DIOXIDE 22.2 MMOL/L (24-32); eGFR > 90 ML/MIN
[2022-08-19] MEDS ORDERED: levoFLOXACIN-Levaquin 500mg/D5 100 ML IV SCH ×2 (22:45→22:50)
[2022-08-19] MEDS ORDERED: MESSAGE TO PHARMACY PO ONE (23:15)
[2022-08-19] MEDS ORDERED: insulin Lispro (HumaLOG) vial - multi-dose SQ SCH (23:15)
[2022-08-19] MEDS ORDERED: dextrose 50%-water 50ml dispensing syringe IV PRN ×2 (23:15)
[2022-08-19] MEDS ORDERED: DEXTROSE 15 GM of carb/4 tabs (each vial/BOTTLE has 4 tablets) PO PRN ×2 (23:15)
[2022-08-19] MEDS ORDERED: glucagon, human recombinant 1mg kit SUBCUT PRN (23:15)
--- NOTE | 2022-08-19 23:45 | NUR ---
@[phone], called Dr. Olson regarding insulin (ie. Humalog & Lantus). He said to start her 4 units Lantus instead of 6 and not to cover her with Humalog for Carbs consumed.
[2022-08-19 23:54] LABS: HEMOGLOBIN A1C 9.8 % (4.5-6.2)
--- NOTE | 2022-08-20 00:30 | NUR ---
Have to leave unit to go to ED. Reported off to and relinquished patient care to VIOLETTE Fry. Pt stable resting in bed w/ s/s of discomfort noted.
[2022-08-20] MEDS: proCHLORperazine 10 MG/2 ml inj IV PRN ×2 (01:28→11:36)
[2022-08-20] MEDS ORDERED: insulin Lispro (HumaLOG) vial - multi-dose SQ ONE (01:40)
--- NOTE | 2022-08-20 01:40 | NUR ---
CHECKED PT BG FOR PRIMARY RN IN ED BG 387 AND PATIENT IS VOMITING . KITTRICK GAVE A ONE TIME ORDER FOR 6 UNITS OF FAST ACTING INSULIN. COMPAZINE WAS GIVEN AND PATIENT ALL CLEANED UP
--- NOTE | 2022-08-20 02:13 | NUR ---
Patient in room PCU 3015. I have received report from Deysi Mata RN and had the opportunity to ask questions and assume patient care.
[2022-08-20] MEDS ORDERED: metoclopramide 5 mg/ml inj IV ONE (02:20)
[2022-08-20] MEDS ORDERED: pantoprazole 40MG/NS 100ML BAG 100 ML IV ONE (02:35)
[2022-08-20 03:52] VITALS: BP 153/82
--- NOTE | 2022-08-20 04:36 | NUR ---
Problems reprioritized. Patient report given, questions answered & plan of care reviewed with Bri Loya RN, as she returned from ED.
--- NOTE | 2022-08-20 04:37 | NUR ---
Took back pt care from VIOLETTE Arrieta. Pt resting quietly in bed w/ no s/s of discomfort noted. IVF infusing.
[2022-08-20 07:05] LABS: BASOPHILS # (AUTO) 0.1 X10'3 (0-0.2); BASOPHILS % (AUTO) 0.4 % (0-1); EOSINOPHILS % (AUTO) 0 % (0-6); HEMOGLOBIN 11.6 g/dl (12.0-16.0); LYMPHOCYTES % (AUTO) 10.3 % (21-51); MEAN CORPUSCULAR HEMOGLOBIN 27.3 PG (27.0-31.0); MEAN CORPUSCULAR HGB CONC 32.4 g/dL (33.0-36.5); MEAN CORPUSCULAR VOLUME 84.5 FL (78-98); MEAN PLATELET VOLUME 8.4 FL (7.4-10.4); MONOCYTES # (AUTO) 1.1 X10'3 (0-0.9); MONOCYTES % (AUTO) 5.8 % (2-12); NEUTROPHILS # (AUTO) 16.5 X10'3 (1.8-7.7); NEUTROPHILS % (AUTO) 83.5 % (42-75); PLATELET COUNT 202 X10'3 (140-440); RED BLOOD COUNT 4.26 X10'6 (4.20-5.60); RED CELL DISTRIBUTION WIDTH 15.8 % (11.5-14.5); WHITE BLOOD COUNT 19.8 X10'3 (4.5-11.0)
[2022-08-20 07:22] LABS: ALBUMIN 3.3 G/DL (3.4-5.0); ANION GAP 20 (8-16); BLOOD UREA NITROGEN 19 MG/DL (7-18); BUN/CREATININE RATIO 22.9 (6.6-38.0); CALCIUM 8.7 MG/DL (8.5-10.1); CHLORIDE 100 MMOL/L (99-107); CREATININE 0.83 MG/DL (0.40-0.90); MAGNESIUM 1.7 MG/DL (1.5-2.4); POTASSIUM 4.9 MMOL/L (3.5-5.1); SODIUM 131 MMOL/L (135-145); eGFR 80 ML/MIN
[2022-08-20 07:25] LABS: GLUCOSE 520 MG/DL (70-104)
--- NOTE | 2022-08-20 07:29 | NUR ---
PAGER ID: [phone] MESSAGE: Lisa [phone], Critical lab values CO2 - 11.0down from 22.2 yesterday, and BS 520. Gap is at 20. She is going back into DKA. Miguel [phone]
[2022-08-20 07:38] VITALS: BP 150/79
--- NOTE | 2022-08-20 08:13 | NUR ---
PAGER ID: [phone] MESSAGE: Lisa [id number], Urgent labs suggest pt is going back into DKA. Do you want her back on DKA protocol and for us to order her missing meds for the protocol? Miguel [phone]
[2022-08-20] MEDS: normal saline 1000ml 1,000 ML IV SCH ×3 (08:50→13:35)
[2022-08-20] MEDS ORDERED: potassium Cl 20 mEq SR tablet PO PRN ×4 (09:35)
[2022-08-20] MEDS ORDERED: potassium CL 20mEq in D5-1/2NS 1,000 ML IV PRN (09:35)
[2022-08-20] MEDS ORDERED: sodium bicarbonate (8.4%) inj. 50 MEQ in dextrose 5% water 500ml 250 ML IV PRN ×4 (09:35)
[2022-08-20] MEDS ORDERED: sodium phosphate inj. 30 MMOL in dextrose 5%-water 250 ML IV PRN ×4 (09:35)
[2022-08-20] MEDS ORDERED: sodium phosphate inj. 15 MMOL in dextrose 5%-water 250 ML IV PRN ×4 (09:35)
[2022-08-20] MEDS ORDERED: sodium bicarbonate (8.4%) inj. 100 MEQ in dextrose 5% water 500ml 500 ML IV PRN ×4 (09:35)
[2022-08-20] MEDS ORDERED: insulin regular, human U-100 3ml vial - multi-dose IV PRN ×2 (09:35)
[2022-08-20] MEDS ORDERED: potassium Cl 40MEQ/1/2NS 520ml 520 ML IV PRN ×4 (09:35)
[2022-08-20] MEDS ORDERED: Neutra Phos packet PO PRN ×2 (09:35)
[2022-08-20] MEDS ORDERED: Insulin Reg/NS 100units/100mL 100 ML IV SCH (09:35)
[2022-08-20] MEDS ORDERED: normal saline 1000ml 1,000 ML IV SCH (09:35)
[2022-08-20 09:54] LABS: CLARITY,URINE CLEAR (Clear); COLOR,URINE STRAW (Yellow); GLUCOSE, URINE >=1000 mg/dl (Neg); KETONES,URINE >=80 mg/dl (Neg); LEUKOCYTE ESTERASE ,URINE NEGATIVE (Neg); NITRITES, URINE NEGATIVE (Neg); OCCULT BLOOD,URINE TRACE-INTACT (Neg); PH,URINE 5.5 (4.8-8.0); PROTEIN,URINE NEGATIVE (Neg); UROBILINOGEN,URINE 0.2 E.U/dL (0.2-1.0)
[2022-08-20 09:58] LABS: UA COLLECTION TYPE NON-SPECIFIED
[2022-08-20 10:00] LABS: SQUAMOUS EPITHELIAL CELL,UR FEW /LPF (FEW)
[2022-08-20 10:01] LABS: BACTERIA,URINE FEW /HPF (Neg); RBC,URINE 0-2 /HPF (0-2); WBC,URINE 0-4 /HPF (0-4)
[2022-08-20] MEDS ORDERED: insulin regular, human 10 units/0.1 ml syringe IV PRN (11:07)
[2022-08-20] MEDS: Insulin Reg/NS 100units/100mL 100 ML IV SCH ×2 (11:46→22:39)
--- NOTE | 2022-08-20 11:55 | NUR ---
Upon taking over for pt i checked am BS and was 505. I checked lab values and saw gap had widened and CO2 was lower at 11.0. I paged Dr Connell that pt seemed to be going back into DKA. Dr. Connell called nurses station later and told staff to start the DKA protocol. I have ordered all meds for DKA protocol and am doing 1hr BS checks starting at 1100. Will continue to monitor and order BMP for 6 hours from now.
[2022-08-20 12:00] VITALS: BP 149/62
[2022-08-20] MEDS: insulin regular, human U-100 3ml vial - multi-dose IV PRN ×2 (13:19→15:10)
--- NOTE | 2022-08-20 15:16 | NUR ---
DM Consult: Pt admit DX DKA initially resolved though back into DKA restarted on insulin drip per EMR. Hx IDDM A1C 9.8% multiple DKA visits past 4 months has insulin pump but pt reported fiance manages DM and wanted to stop using insulin pump since "too complicated" prior 05/28' admit per EMR. Glu 384mg/dl down from 520mg/dl earlier today w/ admit Glu 710mg/dl per EMR. Pt AOx4 but confused per EMR; would benefit from DM ed this admit though not appropriate at this time. Will monitor for PO trends w/ carb controlled diet and further nutrition intervention needs. Rec: 1. return to carb controlled diet per physician 2. monitor for PO trends and ONS needs 3. routine bowel care 4. scaled wt this admit; subsequent weekly wts 5. DM ed once more appropriate prior to discharge Addendum: 08/20/22 at [address] Amended: Links added.
[2022-08-20 16:20] VITALS: BP 108/46
--- NOTE | 2022-08-20 17:16 | NUR ---
Pt has a BS of 190 and has met protocol for changing NS to D5 1/2 NS. I have swapped fluid infusion to D5 1/2 NS running at 150ml/hr as per protocol. Next BMP is scheduled for 30 minutes to see gap and CO2. Will continue to monitor. Pt has complained about left eye hurting. Eye looks red and irritated, there is also a small amount of discharge on eye lid. I will notify the Dr and see if they want anything done or if ABX will be fine.
--- NOTE | 2022-08-20 17:22 | NUR ---
PAGER ID: [phone] MESSAGE: Lisa [id number], Pt is complaining of irritated left eye. Eye is red and has some discharge. Did you want anything done for it or just Levaquin at 2200? Miguel [phone]
[2022-08-20] MEDS: dextrose 5%-1/2 normal saline 1,000 ML IV SCH (17:40)
[2022-08-20 18:00] VITALS: BP 113/53
[2022-08-20 19:34] LABS: ALBUMIN 3.2 G/DL (3.4-5.0); ANION GAP 11 (8-16); BLOOD UREA NITROGEN 15 MG/DL (7-18); BUN/CREATININE RATIO 18.8 (6.6-38.0); CALCIUM 8.6 MG/DL (8.5-10.1); CHLORIDE 109 MMOL/L (99-107); GLUCOSE 165 MG/DL (70-104); SODIUM 138 MMOL/L (135-145); TOTAL CARBON DIOXIDE 17.9 MMOL/L (24-32); eGFR 83 ML/MIN
[2022-08-20] MEDS: K and/or MAG REPLACEMENT MC SCH (20:00)
[2022-08-20] MEDS ORDERED: K and/or MAG REPLACEMENT MC SCH (20:00)
[2022-08-20 20:18] LABS: PHOSPHORUS 1.9 MG/DL (2.3-4.5)
[2022-08-20] MEDS ORDERED: insulin glargine (Lantus) pen - multi-dose SQ SCH (21:00)
[2022-08-20] MEDS ORDERED: levoFLOXACIN-Levaquin 500mg/D5 100 ML IV ONE (21:35)
[2022-08-20 22:00] VITALS: BP 146/71
[2022-08-20] MEDS: moxifloxacin 0.5% ophthalmic drops 3ml LEFTEYE SCH (22:53)
[2022-08-20] MEDS: cloNIDine 0.1 mg tablet PO SCH (22:54)
[2022-08-20] MEDS: prazosin 1mg capsule PO SCH (22:55)
[2022-08-21 01:06] LABS: ANION GAP 12 (8-16); BLOOD UREA NITROGEN 12 MG/DL (7-18); BUN/CREATININE RATIO 18.5 (6.6-38.0); CHLORIDE 111 MMOL/L (99-107); CREATININE 0.65 MG/DL (0.40-0.90); GLUCOSE 79 MG/DL (70-104); LIPASE 65 U/L (73-393); POTASSIUM 3.5 MMOL/L (3.5-5.1); SODIUM 142 MMOL/L (135-145); TOTAL CARBON DIOXIDE 19.3 MMOL/L (24-32); eGFR > 90 ML/MIN
[2022-08-21] MEDS: dextrose 5%-1/2 normal saline 1,000 ML IV SCH ×3 (01:14→13:35)
[2022-08-21 02:00] VITALS: BP 145/68
[2022-08-21 03:42] LABS: ANION GAP 13 (8-16); BLOOD UREA NITROGEN 11 MG/DL (7-18); BUN/CREATININE RATIO 16.7 (6.6-38.0); CALCIUM 8.7 MG/DL (8.5-10.1); CHLORIDE 112 MMOL/L (99-107); CREATININE 0.66 MG/DL (0.40-0.90); GLUCOSE 93 MG/DL (70-104); MAGNESIUM 1.6 MG/DL (1.5-2.4); POTASSIUM 3.3 MMOL/L (3.5-5.1); SODIUM 142 MMOL/L (135-145); TOTAL CARBON DIOXIDE 17.3 MMOL/L (24-32); eGFR > 90 ML/MIN
[2022-08-21] MEDS: Insulin Reg/NS 100units/100mL 100 ML IV SCH ×3 (04:15→08:22)
[2022-08-21 07:00] VITALS: BP 105/55
--- NOTE | 2022-08-21 07:14 | NUR ---
PAGER ID: [phone] MESSAGE: Lisa [id number], Pt has had BG of 80s and 90s all night. D5 1/2NS @250 and insulin at 9. Did you want her swapped to D10 or insulin rate decreased? Miguel [phone]
[2022-08-21 07:28] LABS: BASOPHILS % (AUTO) 0.4 % (0-1); EOSINOPHILS % (AUTO) 0.1 % (0-6); HEMATOCRIT 29.6 % (35.0-45.0); HEMOGLOBIN 9.9 g/dl (12.0-16.0); LYMPHOCYTES # (AUTO) 1.8 X10'3 (1.1-4.8); LYMPHOCYTES % (AUTO) 20.2 % (21-51); MEAN CORPUSCULAR HEMOGLOBIN 27.4 PG (27.0-31.0); MEAN CORPUSCULAR HGB CONC 33.5 g/dL (33.0-36.5); MEAN CORPUSCULAR VOLUME 81.6 FL (78-98); MEAN PLATELET VOLUME 7.9 FL (7.4-10.4); MONOCYTES # (AUTO) 0.7 X10'3 (0-0.9); MONOCYTES % (AUTO) 7.3 % (2-12); NEUTROPHILS # (AUTO) 6.4 X10'3 (1.8-7.7); PLATELET COUNT 183 X10'3 (140-440); RED BLOOD COUNT 3.63 X10'6 (4.20-5.60); RED CELL DISTRIBUTION WIDTH 15.3 % (11.5-14.5); WHITE BLOOD COUNT 8.9 X10'3 (4.5-11.0)
[2022-08-21 07:54] LABS: ALBUMIN 2.7 G/DL (3.4-5.0); ANION GAP 9 (8-16); BLOOD UREA NITROGEN 11 MG/DL (7-18); CALCIUM 8.3 MG/DL (8.5-10.1); CHLORIDE 111 MMOL/L (99-107); GLUCOSE 102 MG/DL (70-104); POTASSIUM 3.2 MMOL/L (3.5-5.1); SODIUM 140 MMOL/L (135-145); TOTAL CARBON DIOXIDE 19.8 MMOL/L (24-32); eGFR > 90 ML/MIN
[2022-08-21] MEDS: K and/or MAG REPLACEMENT MC SCH ×2 (08:00→20:00)
[2022-08-21] MEDS: cloNIDine 0.1 mg tablet PO SCH ×2 (08:00→22:02)
[2022-08-21] MEDS: levoTHYROXINE 88mcg tablet PO SCH (08:08)
[2022-08-21] MEDS: moxifloxacin 0.5% ophthalmic drops 3ml LEFTEYE SCH ×2 (08:09→22:02)
[2022-08-21] MEDS: duloxetine 30mg CAPSULE.DR PO SCH (08:09)
--- NOTE | 2022-08-21 10:04 | NUR ---
Pt's K value is low so I will be starting D5 1/2 NS 20mEq of K with the drip swapping it out for just the D5 1/2 NS. I called pharmacy and was told that all infusing drips are compatible.
[2022-08-21 12:00] VITALS: BP 132/65
[2022-08-21 13:25] LABS: ALBUMIN 2.7 G/DL (3.4-5.0); ANION GAP 11 (8-16); BLOOD UREA NITROGEN 8 MG/DL (7-18); BUN/CREATININE RATIO 13.6 (6.6-38.0); CALCIUM 8.3 MG/DL (8.5-10.1); CHLORIDE 109 MMOL/L (99-107); CREATININE 0.59 MG/DL (0.40-0.90); GLUCOSE 203 MG/DL (70-104); PHOSPHORUS 2.9 MG/DL (2.3-4.5); POTASSIUM 3.4 MMOL/L (3.5-5.1); SODIUM 139 MMOL/L (135-145); TOTAL CARBON DIOXIDE 18.7 MMOL/L (24-32); eGFR > 90 ML/MIN
--- NOTE | 2022-08-21 15:44 | NUR ---
Page sent to US about schedule for pt's time of US.
[2022-08-21 15:56] LABS: ANION GAP 11 (8-16); BLOOD UREA NITROGEN 7 MG/DL (7-18); BUN/CREATININE RATIO 10.3 (6.6-38.0); CALCIUM 8.7 MG/DL (8.5-10.1); CHLORIDE 110 MMOL/L (99-107); CREATININE 0.68 MG/DL (0.40-0.90); GLUCOSE 156 MG/DL (70-104); POTASSIUM 3.6 MMOL/L (3.5-5.1); SODIUM 141 MMOL/L (135-145); TOTAL CARBON DIOXIDE 20.3 MMOL/L (24-32); eGFR > 90 ML/MIN
[2022-08-21 15:59] LABS: % IRON SATURATION 8 % (11-46); IRON 19 UG/DL (49-151); TOTAL IRON BINDING CAPACITY 250 UG/DL (259-388)
[2022-08-21 16:00] VITALS: BP 130/69
--- NOTE | 2022-08-21 16:04 | NUR ---
PAGER ID: [phone] MESSAGE: Lisa [id number], Last labs just resulted and pt's GAP has been closed all day and last CO2 is >20. Can we stop insulin after dinner and move to [facility]? Miguel [phone]
[2022-08-21 17:19] LABS: ALBUMIN 2.9 G/DL (3.4-5.0); ANION GAP 11 (8-16); BLOOD UREA NITROGEN 7 MG/DL (7-18); BUN/CREATININE RATIO 10.3 (6.6-38.0); CALCIUM 8.7 MG/DL (8.5-10.1); CHLORIDE 111 MMOL/L (99-107); CREATININE 0.68 MG/DL (0.40-0.90); GLUCOSE 123 MG/DL (70-104); POTASSIUM 3.5 MMOL/L (3.5-5.1); SODIUM 141 MMOL/L (135-145); TOTAL CARBON DIOXIDE 19.3 MMOL/L (24-32); eGFR > 90 ML/MIN
--- NOTE | 2022-08-21 17:22 | NUR ---
PAGER ID: [phone] MESSAGE: Lisa [id number], Pt is done with US and all DKA protocols are met. Can she eat dinner and we start her on ACHS with the insulin being DC'd at that point? Miguel [phone]
[2022-08-21 18:00] VITALS: BP 155/83
[2022-08-21] MEDS ORDERED: MESSAGE TO PHARMACY PO ONE (18:00)
[2022-08-21] MEDS: insulin Lispro (HumaLOG) vial - multi-dose SQ SCH ×2 (19:50→21:56)
[2022-08-21] MEDS ORDERED: insulin glargine (Lantus) pen - multi-dose SQ SCH (21:00)
[2022-08-21] MEDS: prazosin 1mg capsule PO SCH (22:02)
[2022-08-22 02:00] VITALS: BP 115/69
[2022-08-22 06:00] VITALS: BP 152/72
--- NOTE | 2022-08-22 06:42 | NUR ---
Patient in room PCU 3013Z. I have received report from Vincenzo OAKES and had the opportunity to ask questions and assume patient care. Pt is laying semi fowlers in bed, and is resting comfortably. Pt on RA. No s/s of distress, or s/s of pain at this time. Pt no currently on insulin GTT, ACC checks ac/hs. No s/s of hypo/hyperglycemia. BLL, call light within reach, frequently used items in reach, frequent rounding, grout machine tender socks on. Will continue to monitor.
[2022-08-22] MEDS: levoTHYROXINE 88mcg tablet PO SCH (07:36)
[2022-08-22] MEDS: duloxetine 30mg CAPSULE.DR PO SCH (07:36)
[2022-08-22] MEDS: cloNIDine 0.1 mg tablet PO SCH (07:36)
[2022-08-22] MEDS: insulin Lispro (HumaLOG) vial - multi-dose SQ SCH ×2 (07:59→13:12)
[2022-08-22] MEDS: K and/or MAG REPLACEMENT MC SCH (08:00)
[2022-08-22] MEDS: moxifloxacin 0.5% ophthalmic drops 3ml LEFTEYE SCH (08:01)
[2022-08-22 08:09] LABS: BASOPHILS % (AUTO) 0.8 % (0-1); EOSINOPHILS % (AUTO) 0.1 % (0-6); HEMATOCRIT 32.9 % (35.0-45.0); LYMPHOCYTES # (AUTO) 1.5 X10'3 (1.1-4.8); LYMPHOCYTES % (AUTO) 25.8 % (21-51); MEAN CORPUSCULAR HEMOGLOBIN 27.3 PG (27.0-31.0); MEAN CORPUSCULAR HGB CONC 33.5 g/dL (33.0-36.5); MEAN CORPUSCULAR VOLUME 81.5 FL (78-98); MONOCYTES # (AUTO) 0.5 X10'3 (0-0.9); MONOCYTES % (AUTO) 8.4 % (2-12); NEUTROPHILS # (AUTO) 3.8 X10'3 (1.8-7.7); NEUTROPHILS % (AUTO) 64.9 % (42-75); PLATELET COUNT 147 X10'3 (140-440); RED BLOOD COUNT 4.03 X10'6 (4.20-5.60); RED CELL DISTRIBUTION WIDTH 15.5 % (11.5-14.5); WHITE BLOOD COUNT 5.9 X10'3 (4.5-11.0)
[2022-08-22 08:30] LABS: ALBUMIN 3.1 G/DL (3.4-5.0); ANION GAP 14 (8-16); BLOOD UREA NITROGEN 13 MG/DL (7-18); BUN/CREATININE RATIO 20.3 (6.6-38.0); CALCIUM 8.8 MG/DL (8.5-10.1); CHLORIDE 101 MMOL/L (99-107); CREATININE 0.64 MG/DL (0.40-0.90); MAGNESIUM 1.5 MG/DL (1.5-2.4); PHOSPHORUS 3.7 MG/DL (2.3-4.5); SODIUM 134 MMOL/L (135-145); TOTAL CARBON DIOXIDE 19.1 MMOL/L (24-32); eGFR > 90 ML/MIN
[2022-08-22 08:37] LABS: GLUCOSE 478 MG/DL (70-104)
--- NOTE | 2022-08-22 08:49 | NUR ---
Paged MD Quinonez with Pts crit BG of 478. wants recheck in 1 hr then page with results.
[2022-08-22] MEDS ORDERED: insulin Lispro (HumaLOG) vial - multi-dose SQ ONE (09:51)
[2022-08-22] MEDS ORDERED: levoFLOXACIN 500mg tablet PO SCH (11:00)
--- NOTE | 2022-08-22 11:25 | NUR ---
PAGER ID: [phone] MESSAGE: Kalyn Gonzalez [phone]- [phone], down [phone]. -[place] EXT [phone]
--- NOTE | 2022-08-22 12:44 | NUR ---
PAGER ID: [phone] MESSAGE: Kalyn Gonzalez [id number]; [phone], down from [phone]. -[place] EXT [phone]
--- NOTE | 2022-08-22 13:47 | NUR ---
Pt DC'd to personal vehicle, mother is driving. VSS, pt afebrile, no issues with medication. Diabetic education provided, all discharge questions answered. All belongings with Pt.
== END 2022-08-22 13:47 | disposition home or self-care (01) | DRG 813 ==
LOC: ER 12:47 → ED HOLD 16:25 → PCU 3S 08-19 19:29
PROVIDERS: ADMIT Internal Medicine; ATTEND Internal Medicine
DX: T85.614A Breakdown (mechanical) of insulin pump, initial encounter (principal); A41.9 Sepsis, unspecified organism; G93.41 Metabolic encephalopathy; E10.10 Type 1 diabetes mellitus with ketoacidosis without coma; F32.A Depression, unspecified; E03.9 Hypothyroidism, unspecified; F17.210 Nicotine dependence, cigarettes, uncomplicated; Z96.41 Presence of insulin pump (external) (internal); J45.909 Unspecified asthma, uncomplicated; Z79.4 Long term (current) use of insulin; Z88.1 Allergy status to other antibiotic agents; Z88.2 Allergy status to sulfonamides; Z88.6 Allergy status to analgesic agent; Z56.0 Unemployment, unspecified; Z88.8 Allergy status to other drugs, medicaments and biological substances; Z79.899 Other long term (current) drug therapy; Z91.14 Patient's other noncompliance with medication regimen
CPT/HCPCS: 36415; 36600; 71045; 76700; 80048; 80053; 81001; 82009; 82803; 82948; 83036; 83540; 83550; 83690; 83735; 84100; 84145; 85007; 85018; 85025; 96361; 96374; 99291; C9113; G0378; J0780; J1815; J1956; J2765; J3480; J3490; J7030; J7040; J7042; J7060

== ENCOUNTER 2023-01-12 16:57 | Emergency (ER) | payer MEDICAID ==
[~2023-01-12 16:57] MED LIST changes: -ATOR40TA72 PO; -BREX3TAB PO; +INSU100V49 SQ; -LAMO25TA72 PO; -OXCA150T14 PO; -TOPI25TA49 PO
== END 2023-01-12 22:00 | disposition left against medical advice (07) ==
LOC: ER 16:57
DX: R42 Dizziness and giddiness (principal); Z53.21 Procedure and treatment not carried out due to patient leaving prior to being seen by health care provider
CPT/HCPCS: 71045; 93005; 99281